=== PATIENT | female | born 1950 | race Caucasian/White ===

== ENCOUNTER 2016-10-29 09:40 | Inpatient (IN) ==
[2016-10-29 10:13] VITALS: BMI 45.7
[2016-10-29] MEDS ORDERED: NON-FORMULARY MEDICATION (Multivitamin [Multi-Vitamin Daily] 1 TAB) PO SCH (10:30)
[2016-10-29] MEDS ORDERED: GLUCOPHAGE XR 500MG PO SCH (10:30)
[2016-10-29] MEDS ORDERED: NON-FORMULARY MEDICATION (Potassium Chloride [K-Tab Er] 1 TAB) PO SCH (10:30)
[2016-10-29] MEDS ORDERED: NON-FORMULARY MEDICATION (Simvastatin [Simvastatin] 20 MG) PO SCH ×22 (10:30)
[2016-10-29] MEDS ORDERED: NON-FORMULARY MEDICATION (Losartan/Hydrochlorothiazide [Losartan-Hctz 100-25 Mg Tab] 1 TAB PO SCH (10:30)
[2016-10-29] MEDS ORDERED: NON-FORMULARY MEDICATION (Verapamil Hcl [Verapamil Er] 240 MG) PO SCH (10:30)
[2016-10-29] MEDS ORDERED: NON-FORMULARY MEDICATION (Lisinopril [Lisinopril] 20 MG) PO SCH ×22 (10:30)
[2016-10-29 10:50] LABS: BASOPHILS % (AUTO) 0.4 % (0.0-3.0); EOSINOPHILS # (AUTO) 0.1 K/ul (0.0-0.7); EOSINOPHILS % (AUTO) 2.4 % (0.0-7.0); HEMOGLOBIN 11.8 g/dl (12.0-16.0); IMMATURE GRANULOCYTE % (AUTO) 0.4 % (0.0-5.0); LYMPHOCYTES # (AUTO) 1.3 K/uL (0.60-3.4); LYMPHOCYTES % (AUTO) 26.5 (10.0-50.0); MEAN CORPUSCULAR HEMOGLOBIN 28.9 pg (27.0-31.0); MEAN CORPUSCULAR HGB CONC 32.8 (31.8-35.4); MEAN CORPUSCULAR VOLUME 88.2 fl (81.0-99.0); MONOCYTES # (AUTO) 0.3 K/uL (0.4-2.0); MONOCYTES % (AUTO) 6.1 (0-10); NEUTROPHILS # (AUTO) 3.1 K/ul (2.0-6.9); NEUTROPHILS % (AUTO) 64.2; PLATELET COUNT 238 10^3/uL (140-440); RED BLOOD COUNT 4.08 10^6/ul (4.20-5.40)
[2016-10-29] MEDS ORDERED: HYZAAR 50-12.5 MG TAB PO SCH (11:00)
[2016-10-29 11:33] LABS: ALBUMIN/GLOBULIN RATIO 1.18; ANION GAP 12.8; BILIRUBIN,TOTAL 0.52 mg/dL (0.00-1.20); BUN/CREATININE RATIO 16.86; CALCIUM 9.7 mg/dL (8.2-10.2); CREATININE 0.83 mg/dL (0.60-1.30); POTASSIUM 3.8 mmol/L (3.5-5.10); TOTAL PROTEIN 7.4 g/dL (5.8-8.1)
[2016-10-29] MEDS: CYANOCOBALAMIN 1000 MCG PO SCH (11:40)
[2016-10-29] MEDS: CLARITIN PO SCH (11:40)
[2016-10-29] MEDS: MULTIVITAMIN PO SCH (11:41)
[2016-10-29] MEDS: ASPIRIN CHEWABLE PO SCH (11:41)
[2016-10-29] MEDS: ZESTRIL PO SCH (11:42)
[2016-10-29] MEDS: CLEOCIN PO SCH ×3 (11:42→20:58)
[2016-10-29] MEDS: GLUCOPHAGE PO SCH (11:43)
[2016-10-29] MEDS: LASIX TAB PO SCH (11:43)
[2016-10-29] MEDS: CALAN SR PO SCH (11:43)
[2016-10-29] MEDS: DECADRON 4 MG/ML SDV IM SCH (11:44)
[2016-10-29] MEDS: ZOCOR PO SCH (11:44)
[2016-10-29] MEDS: MICRO-K CAP PO SCH (11:45)
[2016-10-29] MEDS: ROCEPHIN 1 GM in SODIUM CHLORIDE 50 ML IV SCH (11:45)
[2016-10-29] MEDS: NORCO 7.5-325 PO SCH ×3 (11:52→20:58)
[2016-10-29] MEDS: LASIX IVP SCH (11:56)
--- NOTE | 2016-10-29 12:50 | DI ---
EXAM: Two views of the chest. History: Hypertension. Comparison: Chest radiograph 07/27/2012, chest CT 04/01/2014 Findings: Heart size is upper limits of normal. No focal consolidation. No appreciable pleural fl uid and no pneumothorax. Atherosclerotic vascular calcifications. No acute osseous abnormalities. Impression: No acute cardiopulmonary process.
--- NOTE | 2016-10-29 13:16 | US ---
Exam: Mcpherson-scale and color Doppler ultrasonographic evaluation of the lower extremity venous struct ures. Comparison: 10/04/2014. Reason for exam: Leg edema. FINDINGS: There is spontaneous flow with adequate compression and respiratory augmentation seen in both the right and left common femoral, greater saphenous, profunda, superficial femoral, popliteal, peroneal, posterior tibial, and anterior tibial veins. Impression: No ultrasonographic evidence of deep venous thrombus is seen in either the right or lef t lower extremity.
[2016-10-29] MEDS: HUMULIN R SUBCUT PRN (20:59)
[2016-10-30 05:16] LABS: BASOPHILS % (AUTO) 0.3 % (0.0-3.0); HEMATOCRIT 34.6 % (37.0-47.0); HEMOGLOBIN 11.3 g/dl (12.0-16.0); IMMATURE GRANULOCYTE % (AUTO) 0.5 % (0.0-5.0); LYMPHOCYTES # (AUTO) 1.3 K/uL (0.60-3.4); LYMPHOCYTES % (AUTO) 16.7 (10.0-50.0); MEAN CORPUSCULAR HEMOGLOBIN 28.8 pg (27.0-31.0); MEAN CORPUSCULAR HGB CONC 32.7 (31.8-35.4); MONOCYTES # (AUTO) 0.5 K/uL (0.4-2.0); MONOCYTES % (AUTO) 6.7 (0-10); NEUTROPHILS # (AUTO) 5.8 K/ul (2.0-6.9); NEUTROPHILS % (AUTO) 75.8; PLATELET COUNT 265 10^3/uL (140-440); RED BLOOD COUNT 3.93 10^6/ul (4.20-5.40); WHITE BLOOD COUNT 7.71 K/ul (4.6-10.2)
[2016-10-30 05:30] LABS: ALBUMIN 3.5 g/dL (3.4-5.0); ALBUMIN/GLOBULIN RATIO 1.06; BILIRUBIN,TOTAL 0.29 mg/dL (0.00-1.20); BUN/CREATININE RATIO 25.28; CALCIUM 9.8 mg/dL (8.2-10.2); CREATININE 0.87 mg/dL (0.60-1.30); TOTAL PROTEIN 6.8 g/dL (5.8-8.1)
[2016-10-30] MEDS: LASIX IVP SCH (05:52)
[2016-10-30] MEDS: CLEOCIN PO SCH ×3 (05:52→20:34)
[2016-10-30] MEDS: HUMULIN R SUBCUT PRN ×3 (05:53→20:35)
[2016-10-30] MEDS: LASIX TAB PO SCH (05:53)
[2016-10-30] MEDS: NORCO 7.5-325 PO SCH ×3 (05:53→20:34)
[2016-10-30] MEDS: ASPIRIN CHEWABLE PO SCH (08:43)
[2016-10-30] MEDS: COZAAR PO SCH (08:43)
[2016-10-30] MEDS: GLUCOPHAGE PO SCH (08:44)
[2016-10-30] MEDS: MICRO-K CAP PO SCH (08:44)
[2016-10-30] MEDS: CALAN SR PO SCH (08:44)
[2016-10-30] MEDS: MULTIVITAMIN PO SCH (08:44)
[2016-10-30] MEDS: CLARITIN PO SCH (08:44)
[2016-10-30] MEDS: ZOCOR PO SCH (08:45)
[2016-10-30] MEDS: CYANOCOBALAMIN 1000 MCG PO SCH (08:47)
[2016-10-30] MEDS: DECADRON 4 MG/ML SDV IM SCH (08:47)
[2016-10-30] MEDS: ZESTRIL PO SCH (08:48)
[2016-10-30] MEDS ORDERED: HYDROCHLOROTHIAZIDE PO SCH (09:00)
[2016-10-30] MEDS: ROCEPHIN 1 GM in SODIUM CHLORIDE 50 ML IV SCH (09:17)
--- NOTE | 2016-10-30 13:29 | PCM.PROG ---
Attending Provider: ATTENDING PROVIDER: Dr. MICHAEL OBRIEN DATE OF SERVICE: 10/30/16 SUBJECTIVE: This 66 year old WHITE/ F was hospitalized 10/29/16. The patient is hospitalized with cellulitis left lower extremity. The patient is feeling better. No fever, no chills. No pain. Venous scan is negative. REVIEW OF SYSTEMS: CONSTITUTIONAL: No night sweats. No fatigue, malaise, lethargy. No fever or chills. HEENT: Eyes: No visual changes. No eye pain. No eye discharge. ENT: No runny nose. No epistaxis. No sinus pain. No odynophagia. No congestion. RESPIRATORY: No cough, no congestion. No hemoptysis. No shortness of breath. CARDIOVASCULAR: No angina symptoms. No CHF symptoms. No atypical chest pain for CAD. No palpitations. No orthopnea.. GASTROINTESTINAL: No abdominal pain. No nausea or vomiting. No diarrhea or constipation. No hematemesis. No hematochezia. GENITOURINARY: No urgency. No frequency. No dysuria. No hematuria. No obstructive symptoms. No discharge. No pain. No significant abnormal bleeding. MUSCULOSKELETAL: No musculoskeletal pain; no joint swelling. NEUROLOGICAL: Awake, alert, oriented to time, place and person. No headache. No neck pain. No syncope. No seizures. No dizziness. PSYCHIATRIC: Not anxious. No depression. No suicidal thoughts. No homicidal thoughts. SKIN: No rash. No lesions. Ulcer left lower extremity, dried up and has scabbed over. ENDOCRINE: No unexplained weight loss. No weight gain. HEMATOLOGIC/LYMPHATIC: No anemia. No purpura. No petechiae. No prolonged or excessive bleeding. No palpable lymph nodes. PHYSICAL EXAMINATION: GENERAL: The patient is awake, alert and oriented, sitting in chair in no distress. VITAL SIGNS: Temperature 98.0 F, Pulse 71, Respiratory Rate 20, BP 120/70, Pulse Ox 96% HEENT: Head normocephalic, atraumatic. Eyes: Extraocular muscles are intact. Pupils are equal, round and reactive to light and accommodation. Ears: No lesions. Nose appeared normal. Throat: No exudate or erythema. NECK: Supple. No JVD, no carotid bruit. No lymphadenopathy or thyromegaly. LUNGS: Clear to auscultation. Percussion note normal. Chest symmetrical. HEART: S1, S2, no S3. No murmurs. No cyanosis or clubbing. No ascites. Pulses: Dorsalis pedis and posterior tibial pulses +1 to +2 both sides. ABDOMEN: Soft. Non-tender. Bowel sounds active. No CVA tenderness. No mass felt. EXTREMITIES: Left lower extremity is less swollen. Erythema is more confined now. Localized ulcer has dried up, scabbed over. No drainage. No sign of pus formation. It looks better than expected. NEUROLOGIC: No focal deficit. Cranial nerves II through XII are grossly intact. No headache, no double vision or headache. SKIN: Not dry. Intact. Turgor-normal. LYMPHATIC: No palpable lymph nodes/no lymphedema. MUSCULOSKELETAL: Normal joints with no swelling. Muscle tone is normal. LAB REVIEW: 10/30/16 05:11 10/30/16 05:11 10/30/16 05:11: WBC 7.71, RBC 3.93 L, Hgb 11.3 L, Hct 34.6 L, MCV 88.0, MCH 28.8 , MCHC 32.7, RDW Coeff of Saundra 13.5, Plt Count 265, Immature Gran % (Auto) 0.5, Neut % (Auto) 75.8, Lymph % (Auto) 16.7, Harris % (Auto) 6.7, Eos % (Auto) 0.0, Baso % (Auto) 0.3, Immature Gran # (Auto) 0.0, Neut # 5.8, Lymph # 1.3, Harris # 0.5, Eos # 0.0, Baso # 0.0, Sodium 141, Potassium 4.0, Chloride 102, Carbon Dioxide 26, Anion Gap 17.0, BUN 22 H, Creatinine 0.87, Estimated GFR (MDRD) 66.00, BUN/Creatinine Ratio 25.28, Glucose 171 H D, Calcium 9.8, Total Bilirubin 0.29, AST 12 L, ALT 19, Alkaline Phosphatase 85, Total Protein 6.8, Albumin 3.5, Globulin 3.3, Albumin/Globulin Ratio 1.06 10/29/16 10:40: WBC 4.90, RBC 4.08 L, Hgb 11.8 L, Hct 36.0 L, MCV 88.2, MCH 28.9 , MCHC 32.8, RDW Coeff of Saundra 13.6, Plt Count 238, Immature Gran % (Auto) 0.4, Neut % (Auto) 64.2, Lymph % (Auto) 26.5, Harris % (Auto) 6.1, Eos % (Auto) 2.4, Baso % (Auto) 0.4, Immature Gran # (Auto) 0.0, Neut # 3.1, Lymph # 1.3, Harris # 0.3 L, Eos # 0.1, Baso # 0.0, Sodium 144, Potassium 3.8, Chloride 105, Carbon Dioxide 30, Anion Gap 12.8, BUN 14, Creatinine 0.83, Estimated GFR (MDRD) 69.00 , BUN/Creatinine Ratio 16.86, Glucose 108, Hemoglobin A1c 6.0, Calcium 9.7, Total Bilirubin 0.52, AST 17, ALT 22, Alkaline Phosphatase 95, Total Protein 7.4 , Albumin 4.0, Globulin 3.4, Albumin/Globulin Ratio 1.18, TSH 0.697 ASSESSMENT: 1. Cellulitis resolving with wound culture pending PLAN: 1. Continue Decadron 2. Lasix IV 4. Losartan 100 mg daily 5. K-Tab 10 mEq daily 6. Continue antibiotics Plan and coordination of the patient's care discussed in the presence of Shotblaster and nurse. CONDITION: STABLE SCRIBED BY: Roro ESPINAL scribed while in presence of service performed by Dr. MICHAEL OBRIEN on 10/30/16 ([id number])
[2016-10-31 04:44] LABS: BASOPHILS % (AUTO) 0.4 % (0.0-3.0); EOSINOPHILS # (AUTO) 0.1 K/ul (0.0-0.7); EOSINOPHILS % (AUTO) 0.8 % (0.0-7.0); HEMATOCRIT 37.6 % (37.0-47.0); HEMOGLOBIN 12.2 g/dl (12.0-16.0); IMMATURE GRANULOCYTE % (AUTO) 0.7 % (0.0-5.0); LYMPHOCYTES # (AUTO) 2.3 K/uL (0.60-3.4); LYMPHOCYTES % (AUTO) 30.1 (10.0-50.0); MEAN CORPUSCULAR HEMOGLOBIN 28.4 pg (27.0-31.0); MEAN CORPUSCULAR HGB CONC 32.4 (31.8-35.4); MEAN CORPUSCULAR VOLUME 87.6 fl (81.0-99.0); MONOCYTES # (AUTO) 0.6 K/uL (0.4-2.0); MONOCYTES % (AUTO) 7.5 (0-10); NEUTROPHILS # (AUTO) 4.6 K/ul (2.0-6.9); NEUTROPHILS % (AUTO) 60.5; PLATELET COUNT 278 10^3/uL (140-440); RED BLOOD COUNT 4.29 10^6/ul (4.20-5.40); WHITE BLOOD COUNT 7.64 K/ul (4.6-10.2)
[2016-10-31 05:02] LABS: ALBUMIN 3.7 g/dL (3.4-5.0); ALBUMIN/GLOBULIN RATIO 1.03; BILIRUBIN,TOTAL 0.22 mg/dL (0.00-1.20); CALCIUM 9.7 mg/dL (8.2-10.2); CREATININE 0.84 mg/dL (0.60-1.30); TOTAL PROTEIN 7.3 g/dL (5.8-8.1)
[2016-10-31] MEDS: LASIX IVP SCH (05:35)
[2016-10-31] MEDS: NORCO 7.5-325 PO SCH ×3 (05:35→20:08)
[2016-10-31] MEDS: LASIX TAB PO SCH (05:35)
[2016-10-31] MEDS: CLEOCIN PO SCH ×3 (05:35→20:07)
[2016-10-31] MEDS: CALAN SR PO SCH (08:57)
[2016-10-31] MEDS: ASPIRIN CHEWABLE PO SCH (08:57)
[2016-10-31] MEDS: COZAAR PO SCH (08:57)
[2016-10-31] MEDS: ZESTRIL PO SCH (08:57)
[2016-10-31] MEDS: ROCEPHIN 1 GM in SODIUM CHLORIDE 50 ML IV SCH (08:57)
[2016-10-31] MEDS: ZOCOR PO SCH (08:57)
[2016-10-31] MEDS: GLUCOPHAGE PO SCH (08:57)
[2016-10-31] MEDS: MULTIVITAMIN PO SCH (08:58)
[2016-10-31] MEDS: CLARITIN PO SCH (08:58)
[2016-10-31] MEDS: CYANOCOBALAMIN 1000 MCG PO SCH (08:58)
[2016-10-31] MEDS: MICRO-K CAP PO SCH (08:58)
--- NOTE | 2016-10-31 10:16 | PCM.PROG ---
Attending Provider: ATTENDING PROVIDER: Dr. MICHAEL OBRIEN DATE OF SERVICE: 10/31/16 SUBJECTIVE: This 66 year old WHITE/ F was hospitalized 10/29/16. The patient is seen with Bev, Nurse Practitioner. She is alert, sitting in the recliner with legs dangling. REVIEW OF SYSTEMS: CONSTITUTIONAL: No night sweats. No fatigue, malaise, lethargy. No fever or chills. HEENT: Eyes: No visual changes. No eye pain. No eye discharge. ENT: No runny nose. No epistaxis. No sinus pain. No odynophagia. No congestion. RESPIRATORY: No cough, no congestion. No hemoptysis. No shortness of breath. CARDIOVASCULAR: No angina symptoms. No CHF symptoms. No atypical chest pain for CAD. No palpitations. No orthopnea.. GASTROINTESTINAL: No abdominal pain. No nausea or vomiting. No diarrhea or constipation. No hematemesis. No hematochezia. GENITOURINARY: No urgency. No frequency. No dysuria. No hematuria. No obstructive symptoms. No discharge. No pain. No significant abnormal bleeding. MUSCULOSKELETAL: No musculoskeletal pain; no joint swelling. NEUROLOGICAL: Awake, alert, oriented to time, place and person. No headache. No neck pain. No syncope. No seizures. No dizziness. PSYCHIATRIC: Not anxious. No depression. No suicidal thoughts. No homicidal thoughts. SKIN: No rash. Lesion posterior left lower extremity. Chronic leg edema. ENDOCRINE: No unexplained weight loss. No weight gain. HEMATOLOGIC/LYMPHATIC: No anemia. No purpura. No petechiae. No prolonged or excessive bleeding. No palpable lymph nodes. PHYSICAL EXAMINATION: GENERAL: The patient is awake, alert and oriented, sitting in chair in no distress. VITAL SIGNS: Temperature 97.1 F, Pulse 65, Respiratory Rate 16, BP 110/71, Pulse Ox 98% HEENT: Head normocephalic, atraumatic. Eyes: Extraocular muscles are intact. Pupils are equal, round and reactive to light and accommodation. Ears: No lesions. Nose appeared normal. Throat: No exudate or erythema. NECK: Supple. No JVD, no carotid bruit. No lymphadenopathy or thyromegaly. LUNGS: Diminished sounds bilaterally. Clear to auscultation. Percussion note normal. Chest symmetrical. HEART: S1, S2, no S3. No murmurs. No cyanosis or clubbing. No ascites. Pulses: Dorsalis pedis and posterior tibial pulses +1 to +2 both sides. ABDOMEN: Soft. Non-tender. Bowel sounds active. No CVA tenderness. No mass felt. EXTREMITIES: +1 chronic bilateral lower extremity edema, mild tenderness. Full range of motion of all extremities, equal. NEUROLOGIC: No focal deficit. Cranial nerves II through XII are grossly intact. No headache, no double vision or headache. SKIN: 1" lesion back of left lower extremity with some scabbing. No drainage, localized erythema improving. LYMPHATIC: No palpable lymph nodes/no lymphedema. MUSCULOSKELETAL: Normal joints with no swelling. Muscle tone is normal. LAB REVIEW: 10/31/16 04:30 10/31/16 04:30 10/31/16 04:30: WBC 7.64, RBC 4.29, Hgb 12.2, Hct 37.6, MCV 87.6, MCH 28.4, MCHC 32.4, RDW Coeff of Saundra 13.5, Plt Count 278, Immature Gran % (Auto) 0.7, Neut % (Auto) 60.5, Lymph % (Auto) 30.1, Emmet % (Auto) 7.5, Eos % (Auto) 0.8, Baso % (Auto) 0.4, Immature Gran # (Auto) 0.1, Neut # 4.6, Lymph # 2.3, Emmet # 0.6, Eos # 0.1, Baso # 0.0, Sodium 141, Potassium 4.0, Chloride 102, Carbon Dioxide 26, Anion Gap 17.0, BUN 21 H, Creatinine 0.84, Estimated GFR (MDRD) 68.00, BUN/Creatinine Ratio 25.00, Glucose 128 H, Calcium 9.7, Total Bilirubin 0.22, AST 10 L, ALT 17, Alkaline Phosphatase 84, Total Protein 7.3, Albumin 3.7 , Globulin 3.6, Albumin/Globulin Ratio 1.03 ASSESSMENT: 1. Cellulitis resolving with wound culture staph aureus 2. Chronic leg edema PLAN: 1. Continue Rocephin and Clindamycin 2. Add Bactroban b.i.d. topically. 3. Anticipate discharge tomorrow. 4. Instructed to elevate legs. Plan and coordination of the patient's care discussed in the presence of Dredging Inspector and nurse. CONDITION: Stable SCRIBED BY: NOA [employer]IE [employer] scribed while in presence of service performed by Dr. MICHAEL OBRIEN/BEV SOMMERS APRN on 10/31/16 ([id number])
[2016-10-31] MEDS: BACTROBAN TP SCH ×2 (10:31→20:18)
[2016-11-01 05:32] VITALS: BP 91/50; TEMP 97.6
[2016-11-01 05:44] LABS: BASOPHILS # (AUTO) 0.1 K/uL (0-0.2); EOSINOPHILS # (AUTO) 0.2 K/ul (0.0-0.7); EOSINOPHILS % (AUTO) 2.7 % (0.0-7.0); HEMATOCRIT 38.7 % (37.0-47.0); HEMOGLOBIN 12.6 g/dl (12.0-16.0); IMMATURE GRANULOCYTE % (AUTO) 0.8 % (0.0-5.0); LYMPHOCYTES # (AUTO) 2.4 K/uL (0.60-3.4); LYMPHOCYTES % (AUTO) 39.4 (10.0-50.0); MEAN CORPUSCULAR HEMOGLOBIN 28.9 pg (27.0-31.0); MEAN CORPUSCULAR HGB CONC 32.6 (31.8-35.4); MEAN CORPUSCULAR VOLUME 88.8 fl (81.0-99.0); MONOCYTES # (AUTO) 0.5 K/uL (0.4-2.0); MONOCYTES % (AUTO) 8.5 (0-10); NEUTROPHILS # (AUTO) 2.9 K/ul (2.0-6.9); NEUTROPHILS % (AUTO) 47.6; PLATELET COUNT 273 10^3/uL (140-440); RED BLOOD COUNT 4.36 10^6/ul (4.20-5.40); WHITE BLOOD COUNT 5.99 K/ul (4.6-10.2)
[2016-11-01] MEDS: CLEOCIN PO SCH (05:55)
[2016-11-01] MEDS: NORCO 7.5-325 PO SCH (05:55)
[2016-11-01] MEDS: LASIX IVP SCH (05:55)
[2016-11-01] MEDS: LASIX TAB PO SCH (05:56)
[2016-11-01 06:10] LABS: ALBUMIN 3.6 g/dL (3.4-5.0); ALBUMIN/GLOBULIN RATIO 1.09; ANION GAP 21.2; BILIRUBIN,TOTAL 0.3 mg/dL (0.00-1.20); BUN/CREATININE RATIO 29.62; CALCIUM 9.2 mg/dL (8.2-10.2); CREATININE 0.81 mg/dL (0.60-1.30); POTASSIUM 4.2 mmol/L (3.5-5.10); TOTAL PROTEIN 6.9 g/dL (5.8-8.1)
[2016-11-01] MEDS: ROCEPHIN 1 GM in SODIUM CHLORIDE 50 ML IV SCH (08:14)
[2016-11-01] MEDS: ASPIRIN CHEWABLE PO SCH (08:19)
[2016-11-01] MEDS: COZAAR PO SCH (08:19)
[2016-11-01] MEDS: CALAN SR PO SCH (08:19)
[2016-11-01] MEDS: GLUCOPHAGE PO SCH (08:19)
[2016-11-01] MEDS: CLARITIN PO SCH (08:20)
[2016-11-01] MEDS: ZESTRIL PO SCH (08:20)
[2016-11-01] MEDS: MICRO-K CAP PO SCH (08:20)
[2016-11-01] MEDS: ZOCOR PO SCH (08:21)
[2016-11-01] MEDS: BACTROBAN TP SCH (08:21)
[2016-11-01] MEDS: MULTIVITAMIN PO SCH (08:22)
[2016-11-01] MEDS: CYANOCOBALAMIN 1000 MCG PO SCH (08:24)
--- NOTE | 2016-11-01 10:33 | CM.DICTOOL ---
ADMISSION: 10/29/16 09:40 DISCHARGE: November 01, 2016 DATE OF SERVICE: 11/01/16 FINAL DIAGNOSIS Cellulitis, Left Lower Extremity Possible Insect Bite LLE Chronic Leg Edema Diabetes, type 2 Hypertension LVH Cardiomyopathy Fatty Liver Dyslipidemia Anemia DJD Spine Lumbar Surgery LAST VITALS Temp Pulse Resp BP Pulse Ox 97.6 F 76 18 91/50 L 98 11/01/16 05:31 11/01/16 05:31 11/01/16 05:31 11/01/16 05:31 11/01/16 05:31 ACTIVE HOME MEDICATIONS Acetaminophen/Hydrocodone Bitart (Golden 7.5-325) 1 tab PO Q8H REPLACED BY [facility] Last Admin: 11/01/16 05:55 Dose: 1 tab Aspirin (Aspirin Chewable) 81 mg PO DAILYWM REPLACED BY [facility] Last Admin: 11/01/16 08:19 Dose: Not Given Clindamycin HCl (Cleocin) 300 mg PO Q8HR REPLACED BY [facility] Last Admin: 11/01/16 05:55 Dose: 300 mg (new prescription) Loratadine (Claritin) 10 mg PO DAILY REPLACED BY [facility] Last Admin: 11/01/16 08:20 Dose: Not Given Losartan/HCTZ (Hyzaar) 100-25 mg PO DAILY REPLACED BY [facility] Last Admin: 11/01/16 08:19 Dose: 100 mg Metformin HCl (Glucophage) 500 mg PO DAILYWM REPLACED BY [facility] Last Admin: 11/01/16 08:19 Dose: 500 mg Multivitamins (Multivitamin) 1 cap PO DAILY REPLACED BY [facility] Last Admin: 11/01/16 08:22 Dose: Not Given Non-Formulary Medication (Cyanocobalamin (Vitamin B-12) [Vitamin B12]) 1,000 mcg PO DAILY REPLACED BY [facility] Last Admin: 11/01/16 08:24 Dose: Not Given Potassium Chloride (Micro-K Cap) 10 meq PO DAILY REPLACED BY [facility] Last Admin: 11/01/16 08:20 Dose: 10 meq Simvastatin (Zocor) 20 mg PO DAILY REPLACED BY [facility] Last Admin: 11/01/16 08:21 Dose: 20 mg Verapamil HCl (Calan Sr) 240 mg PO DAILY REPLACED BY [facility] Last Admin: 11/01/16 08:19 Dose: 240 mg ALLERGIES amoxicillin trihydrate [From Augmentin] Adverse Reaction (Mild, Unverified 09/09 14:32) Hives potassium clavulanate [From Augmentin] Adverse Reaction (Mild, Unverified 14:32) Hives rosuvastatin calcium [From Crestor] Adverse Reaction (Mild, Unverified 09/09/16 14:32) Abdominal Pain Sulfa (Sulfonamide Antibiotics) Adverse Reaction (Mild, Unverified 09/09/16 14: 32) Hives NEW PRESCRIPTIONS: Clindamycin 300 mg TID for 7 days Stop these medications: Lasix 20 mg daily Lisinopril 20 mg daily SMOKING: Not Applicable DISEASE SPECIFIC EDUCATION: Cellulitis Elevate Legs Prescription No Work Appointment LAB REVIEW: 11/01/16 05:30 11/01/16 05:30 11/01/16 05:30: WBC 5.99, RBC 4.36, Hgb 12.6, Hct 38.7, MCV 88.8, MCH 28.9, MCHC 32.6, RDW Coeff of Saundra 13.4, Plt Count 273, Immature Gran % (Auto) 0.8, Neut % (Auto) 47.6, Lymph % (Auto) 39.4, Hays % (Auto) 8.5, Eos % (Auto) 2.7, Baso % (Auto) 1.0, Immature Gran # (Auto) 0.1, Neut # 2.9, Lymph # 2.4, Hays # 0.5, Eos # 0.2, Baso # 0.1, Sodium 145, Potassium 4.2, Chloride 101, Carbon Dioxide 27, Anion Gap 21.2, BUN 24 H, Creatinine 0.81, Estimated GFR (MDRD) 71.00, BUN/Creatinine Ratio 29.62, Glucose 102, Calcium 9.2, Total Bilirubin 0.30, AST 12 L, ALT 20, Alkaline Phosphatase 84, Total Protein 6.9, Albumin 3.6 , Globulin 3.3, Albumin/Globulin Ratio 1.09 PLAN: Discharge home Diet: Consistent Carbohydrates with bedtime snack Activity: As tolerated Elevate lower extremities as much as possible at night and during the day Continue to check blood sugars at least 2 times daily An appointment is scheduled on November 05 at [address] Oconnell No work until released by Dr. Oconnell Do not take previously prescribed antibiotic (prescribed in [place]) Mrs. Menjivar is alert and oriented x 3. She is independent with activities of daily living and ambulatory with use of a straight cane. She has a good appetite and is consuming 100% of her meals. Accu-check readings for yesterday ranged from 114-131. The morning accu-check reading today is 110. An oblong scabbed area is noted to the posterior left calf with a small amount of surrounding erythema and firmness. Several small circular rivera areas are noted to the side of the scabbed areas. No pain, itching or drainage noted to the left calf. No red streaks are noted. Eliceo Oconnell MD Bev Zarate APRN
--- NOTE | 2016-11-06 11:37 | PN ---
DATE OF SERVICE: 10/31/16 SUBJECTIVE: The patient is a 66 year old white female hospitalized with cellulitis left lower extremity. The patient's cellulitis practically has resolved with the scan formation on the smaller ulcer she has left posterior aspect of the calf. The calf swelling is practically gone. The patient is again explained about keeping her legs elevated. There is no itching anymore. PHYSICAL EXAMINATION: HEENT: Head normocephalic, atraumatic. Eyes: Extraocular muscles are intact. Pupils are equal, round and reactive to light and accommodation. Ears: No lesions. Nose appeared normal. Throat: No exudate or erythema. NECK: Supple. No JVD, no carotid bruit. No lymphadenopathy or thyromegaly. LUNGS: Clear to auscultation. Percussion note normal. Chest symmetrical. HEART: S1, S2, no S3. No murmurs. No cyanosis or clubbing. No ascites. Pulses: Dorsalis pedis and posterior tibial pulses +1 to +2 both sides. Stable. ABDOMEN: Soft. Nontender. Bowel sounds active. No CVA tenderness. No mass felt. EXTREMITIES: No edema. Full range of motion of all extremities, equal. NEUROLOGIC: No focal deficit. Cranial nerves II through XII are grossly intact. No headache, no double vision or headache. SKIN: Not dry. Intact. Turgor - normal. LYMPHATIC: No palpable lymph nodes/no lymphedema. MUSCULOSKELETAL: Normal joints with no swelling. Muscle tone is normal. LABS: Hgb 12, hct 37, WBC 7,600 normal differential CONDITION: Stable TIME SPENT: More than 30 minutes. Plan and coordination of the patient's care discussed in the presence of nurse. TRICIA
--- NOTE | 2016-11-07 08:33 | HP ---
DATE OF SERVICE: 10/29/16 REASON FOR HOSPITALIZATION/ HISTORY OF PRESENT ILLNESS: Bit on -starting drainage Friday-itches.neal went to [facility] on Friday, 4 days ago and put on Erythromycin twice a day and cream three times a day. Getting bigger/ more tender. No fever. REVIEW OF SYSTEMS: CONSTITUTIONAL: No fever, Fatigue. HEENT: No sinus drainage, no sore throat. RESPIRATORY: No cough, no congestion. CARDIOVASCULAR: No atypical chest pain for coronary artery disease. No angina , CHF symptoms, palpitations or shortness of breath. GASTROINTESTINAL: No melena or abdominal pain. No GERD. GENITOURINARY: No hematuria, no prostatism, no polyuria. TUBE SPLICER: No blackout, no dizziness, no headache, no double vision. GAIT: Cane MUSCULOSKELETAL: Osteoarthritis pain, no joint swelling. ENDOCRINE: No weight loss, no weight gain. SKIN: Not dry, no rash. Open lesion left lower extremity PSYCHIATRIC: Not anxious, no depression, no suicidal thoughts, no homicidal thoughts. SOCIAL HISTORY: Marital Status:. Alcohol Usage: No. Tobacco Usage: No. Family History: father , mother [place], one brother 2 half brothers, one sister and 3 half sisters. MEDICAL/SURGICAL HISTORY: Hypertension Mitral valve prolapse Back problems Diabetes Mellitus type 2 LVH Left bundle branch block Anemia Cardiomyopathy DJD spine Fatty liver Gallbladder Back surgery Appendix Tubal ligation Tonsils Coloscopy 11/10 Dr. Deleon MEDICATIONS: Aspirin 81mg PO daily Lisinopril 20mg PO daily OTC Loratadine 10mg Daily Verapamil ER 240mg daily Simvastatin 20mg PO daily Lorida 7.5-325 three times a day Metformin 500mg PO daily Losartan 100mg PO daily Lasix 20mg PO daily Vitamin B12 2,500 PO daily Lipitor 40mg PO daily Multivitamin PO daily K-Tabs 10mg PO daily Erythromycin twice a day and cream three times a day [facility] ALLERGIES: Crestor Sulfa Augmentin PHYSICAL EXAMINATION: V/S: Pulse 92, blood pressure 156/86, temperature 98 and pulse ox 97%. GENERAL APPEARANCE: Oriented times three. HEENT: Normal. NECK: No JVP, no bruits. RESPIRATORY: Lungs are clear. CARDIOVASCULAR: S1, S2, no S3, no murmurs. No cyanosis, clubbing. No ascites. GI/ABDOMEN: No tenderness. Bowel sounds are active. EXTREMITIES: edema, pulses +1, equal. Left lower extremity to open ulcers, tender surrounding erythema, clear-yellow drainage. TUBE SPLICER: Deep tendon reflexes, sensory, motor and gait all normal. RECTAL: colonoscopy 11/10 Dr. Deleon refused repeat. /PELVIC: Refused. ASSESSMENT: 1. Bite versus open wound due chronic leg edema 2. Cellulitis left lower extremity 3. Chronic edema 4. Left muslim skin lesion and left mole removed by Dr. Silveira 5. Fatty liver 6. Diabetes Mellitus type 2 a1c 6.1 on 08/17 7. Hypertension/ LVH 8. Dyslipidemia 9. Anemia 10.DJD spine 11.Left bundle branch block 12.Hyperglycemia A1c 061 on 08/17 13.Cardiomyopathy 14. Back surgery 2000 Dr. Valdez PLAN: 1. Admit regular 2. Diet 2500 calories ADA 3. Elevate legs 4. Lasix 20mg IV now and QAM 5. Venous scan 6. Culture wound culture and sensitivity 7. Rocephin 1 gram IV now and 24 hours 8. Clindamycin 300mg PO three times a day 9. Continue all home medications 10.Daily CBC and CMP and today 11.TSH, A1c 12.X-ray chest 13.EKG today 14.1/2cc Decadron IM today and tomorrow AM 15.Accu-checks with coverage 16.4 hour Telemetry TIME SPENT: More than 70 minutes. ADDENDUM: RADIOLOGICAL FINDINGS: Venous scan is negative and shows no evidence of deep vein thrombosis on right or left extremity. Chest x-ray is negative and it shows no acute cardio pulmonary processes. LABS: Sodium 144, potassium 3.8, BUN 14, creatinine 0.83, glucose 108, TSH 0.6, Total protein 7.4, Albumin 4.0, Globulin 3.4, A1c 6.0, WBC 4.9, RBC 4.08, hgb 11.8, hct 36, plt count 238. The patient was a direct admit from the office on 10/29/16. TRICIA
--- NOTE | 2016-11-07 08:54 | PN ---
DATE OF SERVICE: 11/01/16 DISCHARGE NOTE SUBJECTIVE: The patient is a 66 year old white female hospitalized with cellulitis left lower extremity. The patient's ulcers are already scabbed over and there is no surrounding edema or erythema. The skin looks practically normal. Her cellulitis is completely resolved with no swelling of the calf muscle on the left side. She doesn't have any fever or chills. REVIEW OF SYSTEMS: CONSTITUTIONAL: No night sweats. No fatigue, malaise, lethargy. No fever or chills. HEENT: Eyes: No visual changes. No eye pain. No eye discharge. ENT: No runny nose. No epistaxis. No sinus pain. No sore throat. No odynophagia. No congestion. RESPIRATORY: No cough, no congestion. No hemoptysis. No shortness of breath. CARDIOVASCULAR: No angina symptoms. No CHF symptoms. No atypical chest pain for CAD. No palpitations. No orthopnea. GASTROINTESTINAL: No abdominal pain. No nausea or vomiting. No diarrhea or constipation. No hematemesis. No hematochezia. GENITOURINARY: No urgency. No frequency. No dysuria. No hematuria. No obstructive symptoms. No discharge. No pain. No significant abnormal bleeding. MUSCULOSKELETAL: No musculoskeletal pain; no joint swelling. NEUROLOGICAL: No headache. No neck pain. No syncope. No seizures. No dizziness. PSYCHIATRIC: Not anxious. No depression. No suicidal thoughts. No homicidal thoughts. SKIN: No rash. No lesions. No wounds. ENDOCRINE: No unexplained weight loss. No weight gain. HEMATOLOGIC/LYMPHATIC: No anemia. No purpura. No petechiae. No prolonged or excessive bleeding. No palpable lymph nodes. PHYSICAL EXAMINATION: GENERAL: The patient is oriented to time,place and person and up and about feels great. HEENT: Head normocephalic, atraumatic. Eyes: Extraocular muscles are intact. Pupils are equal, round and reactive to light and accommodation. Ears: No lesions. Nose appeared normal. Throat: No exudate or erythema. NECK: Supple. No JVD, no carotid bruit. No lymphadenopathy or thyromegaly. LUNGS: Clear to auscultation. Percussion note normal. Chest symmetrical. HEART: S1, S2, no S3. No murmurs. No cyanosis or clubbing. No ascites. Pulses: Dorsalis pedis and posterior tibial pulses +1 to +2 both sides. ABDOMEN: Soft. Nontender. Bowel sounds active. No CVA tenderness. No mass felt. EXTREMITIES: No edema. Full range of motion of all extremities, equal. Left lower extremity practically normal with health scab, small elliptical an inch in length and half an inch in width and drainage NEUROLOGIC: No focal deficit. Cranial nerves II through XII are grossly intact. No headache, no double vision or headache. SKIN: Not dry. Intact. Turgor - normal. LYMPHATIC: No palpable lymph nodes/no lymphedema. MUSCULOSKELETAL: Normal joints with no swelling. Muscle tone is normal. LABS: hgb 12.6, hct 38, WBC 5,900 normal differential, creatinine 0.8, BUN 24, potassium 4.2 PLAN: 1. Going to be discharged on Clindamycin 2. Advised to keep the legs up and rest 3. We will see her on Friday and after that she may be released to go back to work until then she is to rest. CONDITION: Stable. TIME SPENT: More than 30 minutes. Plan and coordination of the patient's care discussed in the presence of nurse. TRICIA
--- NOTE | 2016-11-07 09:18 | DS ---
DATE OF SERVICE: 11/01/16 FINAL DIAGNOSIS: 1. Cellulitis, left lower extremity 2. Possible insect bite Left lower extremity 3. Chronic leg edema 4. Diabetes, type 2 5. Hypertension 6. LVH 7. Cardiomyopathy 8. Fatty Liver 9. 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 DISCHARGE INSTRUCTIONS: Discharge home. Continue to check blood sugars at least 2 times daily. An appointment is scheduled on November [address] Oconnell. No work until released by Dr. Oconnell. Do not take previously prescribed antibiotics(prescribed by [facility]) MEDICATIONS AT DISCHARGE: [place] 7.5-325 PO Q 8 hours Aspirin chewable 81mg PO daily Cleocin 300mg PO Q 8 hours Claritin 10mg PO daily Hyzaar 100-25mg PO daily Glucophage 500mg PO daily Multivitamin 1 capsule PO daily Vitamin B12 1,000mcg PO daily Micro-K capsule 10mew PO daily Zocor 20mg PO daily Calan Sr. 240mg PO daily ALLERGIES: Amoxicillin Potassium clavulanate Rosuvastatin calcium Sulfa NEW PRESCRIPTIONS: Clindamycin 300mg three times a day for 7 days STOP: Lasix 20mg daily Lisinopril 20mg daily DIET INSTRUCTIONS: Consistent carbohydrates with bedtime snack ACTIVITY: As tolerated SMOKING: Not applicable DISEASE SPECIFIC EDUCATION: Cellulitis Elevate legs Prescription No work Appointment. HOSPITAL COURSE: The patient is a 66 year old white female who is diabetic was hospitalized with swelling of the left calf with erythema and an ulcer which was draining. The patient had this happen while she was working. The patient was kept in the hospital and given IV Lasix. The swelling practically went away. The draining ulcer has practically dried up and now with healthy scab and no erythema. The inflammation is practically under control and subsided. The patient was treated with Clindamycin and Rocephin. The patient was discharged on Clindamycin. She is advised to rest. She will be seen back on Friday. CONDITION: Stable. TIME SPENT: More than [address] [facility]
--- NOTE | 2016-11-07 09:19 | PN ---
10/29/16: Level 5 10/30/16: Intermediate 10/31/16: Intermediate 11/01/16: D as in discharge This was all Workman's Comp MTDD
== END 2016-11-01 11:00 | disposition home or self-care (01) | DRG 603 ==
LOC: MEDSURG A 09:40
PROVIDERS: ADMIT Internal Medicine; ATTEND Internal Medicine
DX: L03.116 Cellulitis of left lower limb (principal); R60.0 Localized edema; S80.862A Insect bite (nonvenomous), left lower leg, initial encounter; I42.9 Cardiomyopathy, unspecified; E11.9 Type 2 diabetes mellitus without complications; I10 Essential (primary) hypertension; I51.7 Cardiomegaly; K76.0 Fatty (change of) liver, not elsewhere classified; E78.5 Hyperlipidemia, unspecified; D64.9 Anemia, unspecified; M47.9 Spondylosis, unspecified; W57.XXXA Bitten or stung by nonvenomous insect and other nonvenomous arthropods, initial encounter; Z98.890 Other specified postprocedural states; Z79.84 Long term (current) use of oral hypoglycemic drugs; Z79.899 Other long term (current) drug therapy
CPT/HCPCS: 36415; 80053; 82962; 83036; 84443; 85025; 87070; 87186; 93005; 93010; 99223; 99232; 99239

== ENCOUNTER 2017-04-11 13:41 | Outpatient (CLI) ==
--- NOTE | 2017-04-11 14:42 | DI ---
EXAM: Radiographs, left hip HISTORY: Left hip pain. COMPARISON: None available. TECHNIQUE: Two-view. FINDINGS: Bone mineralization is decreased. No fracture or dislocation identified. Joint space is maintained. No erosive changes are seen. There has been previous lumbosacral fusion. Soft tissues are unremarkable. IMPRESSION: No acute abnormality of the left hip.
== END 2017-04-11 13:42 | disposition home or self-care (01) ==
LOC: RAD 13:41
PROVIDERS: ATTEND Internal Medicine
DX: M25.552 Pain in left hip (principal)

== ENCOUNTER 2017-05-13 16:58 | Outpatient (CLI) | END 2017-05-13 16:59 | disposition home or self-care (01) | LOC: NONPT 16:58 | PROVIDERS: ATTEND Internal Medicine | DX: R05 Cough (principal); R68.89 Other general symptoms and signs; R50.9 Fever, unspecified | CPT/HCPCS: 87502 ==

== ENCOUNTER 2017-08-11 06:23 | Outpatient (CLI) ==
[2017-08-11] MEDS ORDERED: DOBUTAMINE 250 ML IV ONE (07:19)
[2017-08-11] MEDS ORDERED: ATROPINE SULFATE PFS ONE (07:19)
--- NOTE | 2017-08-12 11:34 | ECHO2D ---
Date of Exam: 08/11/17 Ordering Physician: DR. MICHAEL OBRIEN Room #: OP Reason for Echo: DILATED CARDIOMYOPATHY M-Mode Normal Adult Results LV Dimensions Normal Adult Results AoV Opening excursions >1.6 >1.6 LVEDD-base- 3.5-5.8 5.9 Ao root dimensions 2.0-3.7 3.2 LVESD-base- 3.1-4.6 L. Atrium dimensions 1.9-3.8 4.7 Post. Wall thickness 0.8-1.1 1.3 IV septum (thickness) 0.7-1.2 1.3 Post. Wall excursion 0.72-1.3 NORMAL Septal motion NORMAL Systolic motion R. Ventricular cavity 1.5-2.0 NORMAL LVEF 60% 52% Paradoxical septal wall motion NORMAL 2-D : 2-D M Mode Echocardiogram was performed using apical four chamber and left parasternal long and short axis views. Mitral, tricuspid and aortic valves appear to be normal. Contractility of the left ventricle seems to be normal, so is the cavity size. Enlarged Left atrial cavity Aortic root appears to be normal. There is no pericardial effusion. There is no thrombus noted in the left ventricular or left aortic cavity. No mitral valve prolapse noted. M-MODE: MV: NORMAL AV: NORMAL TV: NORMAL PV: CHAMBER SIZE: ENLARGED LEFT ATRIAL CAVITY WALL MOTION: NORMAL PERICARDIUM: NORMAL INTERPRETATION: 1. LEFT VENTRICULAR HYPERTROPHY WITH ENLARGED LEFT ATRIAL CAVITY 2. NORMAL LEFT VENTRICULAR CONTRACTILITY 3. NORMAL LEFT VENTRICLE SIZE 4. NORMAL VALVES MTDD
--- NOTE | 2017-08-12 11:45 | ECHOSTRESS ---
Date of Exam: 08/11/17 Ordering Physician: DR. MICHAEL OBRIEN Reason for Echo: DILATED CARDIOMYOPATHY, DOBUTAMINE STRESS--NO ISCHEMIA M-Mode Normal Adult Results LV Dimensions Normal Adult Results AoV Opening excursions >1.6 LVEDD-base- 3.5-5.8 Ao root dimensions 2.0-3.7 LVESD-base- 3.1-4.6 L. Atrium dimensions 1.9-3.8 Post. Wall thickness 0.8-1.1 IV septum (thickness) 0.7-1.2 Post. Wall excursion 0.72-1.3 Septal motion Systolic motion R. Ventricular cavity 1.5-2.0 LVEF 60% Paradoxical septal wall motion 2-D: NORMAL LEFT VENTRICULAR CONTRACTILITY--AND WITH DOBUTAMINE INFUSION M-MODE: MV: AV: TV: PV: CHAMBER SIZE: WALL MOTION: NORMAL LEFT VENTRICULAR CONTRACTILITY--AND WITH DOBUTAMINE INFUSION PERICARDIUM: INTERPRETATION: 1. NORMAL LEFT VENTRICULAR CONTRACTILITY--AND WITH DOBUTAMINE INFUSION MTDD
--- NOTE | 2017-08-12 12:04 | DOBSTECHO ---
Date of Test: 08/11/17 Ordering Physician: DR. MICHAEL OBRIEN Reason for Examination: DILATED CARDIOMYOPATHY, SURGICAL CLEARANCE Current Medications: VERAPAMIL, FUROSEMIDE, METFORMIN, LISINOPRIL, ATORVASTATIN , POTASSIUM, LOSARTAN, ASA, LORATADINE, NORCO Target Heart Rate: 132/156 Height: 65" Weight: 265 LBS S-T Segment Stage Time HR BPM BP MMHG Rhythm +/- Elevation Depression Comments/ Symptoms Control Sitting 74 130/72 SR X NONE Dobutamine 250mg/D5W 5cmg/KG/mn 10cmg/KG/mn 3:00 86 140/72 SR X NONE 15cmg/KG/mn 2:00 116 SR X NONE 20cmg/KG/mn 2:00 116 132/60 SR X NONE 25cmg/KG/mn 2:00 122 SR X NONE 30cmg/KG/mn 1:47 127 130/68 SR X NONE 35cmg/KG/mn 40cmg/KG/mn Time: 5:00 HR B/P Time: 12:00 HR B/P Time: HR B/P Recovery 106 120/60 Recovery 90 Recovery Total Time: 10:47 Maximum Heart Rate Reached: 127 BPM Interpretation: 97% OXYGEN SATURATION ON ROOM AIR AT REST 1. NO EVIDENCE OF ISCHEMIA BY ST-T WAVE 2. NO CHEST PAIN OR CHEST DISCOMFORT 3. NORMAL LEFT VENTRICULAR CONTRACTILITY-RESTING AND WITH DOBUTAMINE INFUSION MTDD
== END 2017-08-11 06:24 | disposition home or self-care (01) ==
LOC: CAR 06:23
PROVIDERS: ATTEND Internal Medicine
DX: I42.0 Dilated cardiomyopathy (principal); R06.02 Shortness of breath
CPT/HCPCS: 93005; 93010

== ENCOUNTER 2017-12-01 13:11 | Outpatient (CLI) | END 2017-12-01 13:12 | disposition home or self-care (01) | LOC: RAD 13:11 | PROVIDERS: ATTEND Internal Medicine | DX: Z12.31 Encounter for screening mammogram for malignant neoplasm of breast (principal) | CPT/HCPCS: 77067 ==

== ENCOUNTER 2019-01-11 16:23 | Inpatient (IN) ==
[2019-01-11] MEDS ORDERED: ATROPINE SULFATE PFS IVP PRN (17:01)
[2019-01-11] MEDS ORDERED: VISTARIL INJ IM PRN (17:01)
[2019-01-11] MEDS ORDERED: TYLENOL PO PRN (17:01)
[2019-01-11] MEDS ORDERED: NITROSTAT SL PRN (17:01)
[2019-01-11 17:02] VITALS: BMI 43.7
[2019-01-11] MEDS: ALDACTONE PO SCH (18:21)
[2019-01-11] MEDS: CLEOCIN PO SCH ×2 (18:21→20:18)
[2019-01-11] MEDS: COZAAR PO SCH (18:21)
[2019-01-11] MEDS: ROCEPHIN 1 GM/50 ML D5W 1 GM/50 ML BAG IV SCH (18:23)
[2019-01-11] MEDS: LASIX IVP SCH (18:23)
[2019-01-11] MEDS: NORCO 7.5-325 PO SCH (20:53)
[2019-01-11] MEDS ORDERED: NORCO 7.5-325 PO SCH (21:00)
--- NOTE | 2019-01-11 21:54 | DI ---
EXAM: AP single view of the chest. HISTORY: Routine telemetry orders. FINDINGS: The bones are unremarkable. The cardiac silhouette is enlarged. The pulmonary vasculature is within normal limits. The costophrenic angles are clear. There is minimal left basilar subsegme ntal atelectasis. Impression: Minimal left basilar subsegmental atelectasis. Cardiomegaly.
[2019-01-12] MEDS: LASIX IVP SCH (05:37)
--- NOTE | 2019-01-12 08:49 | PCM.PROG ---
Attending Provider: ATTENDING PROVIDER: Dr. MICHAEL OBRIEN This patient is seen with Bev Zarate, Nurse Practitioner. DATE OF SERVICE: 01/12/19 SUBJECTIVE: This 68 year old /WHITE F was hospitalized 01/11/19. The patient is resting comfortably. Her leg edema has slightly improved with significant redness. REVIEW OF SYSTEMS: CONSTITUTIONAL: No night sweats. No fatigue, malaise, lethargy. No fever or chills. HEENT: Eyes: No visual changes. No eye pain. No eye discharge. ENT: No runny nose. No epistaxis. No sinus pain. No odynophagia. No congestion. RESPIRATORY: No cough, no congestion. No hemoptysis. No shortness of breath. CARDIOVASCULAR: No angina symptoms. No CHF symptoms. No atypical chest pain for CAD. No palpitations. No orthopnea.. GASTROINTESTINAL: No abdominal pain. No nausea or vomiting. No diarrhea or constipation. No hematemesis. No hematochezia. GENITOURINARY: No urgency. No frequency. No dysuria. No hematuria. No obstructive symptoms. No discharge. No pain. No significant abnormal bleeding. MUSCULOSKELETAL: No musculoskeletal pain; no joint swelling. Pain. NEUROLOGICAL: Awake, alert, oriented to time, place and person. No headache. No neck pain. No syncope. No seizures. No dizziness. PSYCHIATRIC: Not anxious. No depression. No suicidal thoughts. No homicidal thoughts. SKIN: No rash. No lesions. No wounds. Leg edema. ENDOCRINE: No unexplained weight loss. No weight gain. HEMATOLOGIC/LYMPHATIC: No anemia. No purpura. No petechiae. No prolonged or excessive bleeding. No palpable lymph nodes. PHYSICAL EXAMINATION: GENERAL: The patient is awake, alert and oriented, lying in bed in no distress. VITAL SIGNS: Temperature 97.8 F, Pulse 72, Respiratory Rate 20, BP 124/73, Pulse Ox 97% HEENT: Head normocephalic, atraumatic. Eyes: Extraocular muscles are intact. Pupils are equal, round and reactive to light and accommodation. Ears: No lesions. Nose appeared normal. Throat: No exudate or erythema. NECK: Supple. No JVD, no carotid bruit. No lymphadenopathy or thyromegaly. LUNGS: Diminished breath sounds. Clear to auscultation. Percussion note normal. Chest symmetrical. HEART: S1, S2, no S3. No murmurs. No cyanosis or clubbing. No ascites. Pulses: Dorsalis pedis and posterior tibial pulses +1 to +2 both sides. ABDOMEN: Soft. Non-tender. Bowel sounds active. No CVA tenderness. No mass felt. EXTREMITIES: +1 bilateral leg edema with multiple scabbed areas with surrounding erythema and one pustular lesion. Full range of motion of all extremities, equal. NEUROLOGIC: No focal deficit. Cranial nerves II through XII are grossly intact. No headache, no double vision or headache. SKIN: Not dry. Intact. Turgor-normal. LYMPHATIC: No palpable lymph nodes/no lymphedema. MUSCULOSKELETAL: Normal joints with no swelling. Muscle tone is normal. LAB REVIEW: 01/12/19 04:42 01/12/19 01:10 01/12/19 04:42: WBC 5.37, RBC 3.89 L, Hgb 11.2 L, Hct 35.3 L, MCV 90.7, MCH 28.8, MCHC 31.7 L, RDW Coeff of [place]und[place] 13.4, Plt Count 236, Immature Gran % (Auto) 0.4, Neut % (Auto) 54.0, Lymph % (Auto) 33.1, [place] % (Auto) 7.8, Eos % (Auto) 4.1, Baso % (Auto) 0.6, Immature Gran # (Auto) 0.0, Neut # (Auto) 2.9, Lymph # (Auto) 1.8, [place] # (Auto) 0.4, Eos # (Auto) 0.2, Baso # (Auto) 0.0 01/12/19 01:10: Sodium 140.8, Potassium 4.08, Chloride 103.4, Carbon Dioxide 30.6 H, Anion Gap 10.88, BUN 17.5 H, Creatinine 0.91, Estimated GFR (MDRD) 62.00, BUN/Creatinine Ratio 19.23, Glucose 139.2 H, Calcium 8.86, Total Bilirubin 0.31, AST 23.8, ALT 25.7, Alkaline Phosphatase 75.6, Total Creatine K inase 38.6, Troponin I < 0.012, Total Protein 7.07, Albumin 3.97, Globulin 3.10, Albumin/Globulin Ratio 1.28 01/11/19 17:44: Urine Color Yellow, Urine Clarity Clear, Urine pH 6.5, Ur Specific [place] 1.020, Urine Protein Negative, Urine Glucose (UA) Negative, Urine Ketones Negative, Urine Blood Negative, Urine Nitrite Negative, Urine Bilirubin Negative, Urine Urobilinogen 0.2, Ur Leukocyte Esterase Trace, Urine Microscopic RBC 2-5, Urine Microscopic WBC 2-5, Ur Squamous Epith Cells 0-2, Urine Bacteria 1+ 01/11/19 17:21: TSH 1.050 01/11/19 17:20: Total Creatine Kinase 46.8, Troponin I < 0.012 01/11/19 17:20: Sodium 140.7, Potassium 4.12, Chloride 102.8, Carbon Dioxide 29.9, Anion Gap 12.12, BUN 17.2 H, Creatinine 0.85, Estimated GFR (MDRD) 67.00, BUN/Creatinine Ratio 20.23, Glucose 123.7 H, Calcium 9.17, Total Bilirubin 0.38, AST 39.7 H, ALT 29.1, Alkaline Phosphatase 88.4, Total Protein 7.82, Albumin 4.33, Globulin 3.49, Albumin/Globulin Ratio 1.24 01/11/19 17:20: WBC 6.04, RBC 4.08 L, Hgb 11.8 L, Hct 36.9 L, MCV 90.4, MCH 28.9, MCHC 32.0, RDW Coeff of [place]und[place] 13.4, Plt Count 253, Immature Gran % (Auto) 0.3, Neut % (Auto) 57.2, Lymph % (Auto) 32.9, [place] % (Auto) 6.1, Eos % (Auto) 3.0, Baso % (Auto) 0.5, Immature Gran # (Auto) 0.0, Neut # (Auto) 3.5, Lymph # (Auto) 2.0, [place] # (Auto) 0.4, Eos # (Auto) 0.2, Baso # (Auto) 0.0 ASSESSMENT: Please see below. 1. Bilateral lower extremity cellulitis and edema. 2. Hypertension 3. Chronic back pain. PLAN: 1. 40mg Lasix IV 2. Continue antibiotics 3. Elevate legs 3. Bactroban BID to scabbed areas. Plan and coordination of the patient's care discussed in the presence of Rn Telephone Triage and nurse. SCRIBED BY: YOEL PATEL, Tool Marker scribed while in presence of service performed by Dr. Obrien/Bev Zarate APRN on 01/12/19 (0801)
[2019-01-12] MEDS ORDERED: HYZAAR 50-12.5 MG TAB PO SCH (09:00)
[2019-01-12] MEDS ORDERED: CALAN SR PO SCH (09:00)
[2019-01-12] MEDS ORDERED: COZAAR PO SCH ×2 (09:00→10:00)
[2019-01-12] MEDS ORDERED: LASIX IVP STA (09:06)
[2019-01-12] MEDS: MICRO-K CAP PO SCH (09:13)
[2019-01-12] MEDS: COZAAR PO SCH (09:13)
[2019-01-12] MEDS: NORCO 7.5-325 PO SCH ×3 (09:13→20:48)
[2019-01-12] MEDS: CLEOCIN PO SCH ×3 (09:14→20:48)
[2019-01-12] MEDS: ASPIRIN EC PO SCH (09:14)
[2019-01-12] MEDS: ZOCOR PO SCH (09:14)
[2019-01-12] MEDS: ALDACTONE PO SCH (09:14)
[2019-01-12] MEDS: CLARITIN PO SCH (09:14)
[2019-01-12] MEDS: GLUCOPHAGE PO SCH (09:14)
[2019-01-12] MEDS: ROCEPHIN 1 GM/50 ML D5W 1 GM/50 ML BAG IV SCH (09:15)
[2019-01-12] MEDS: BACTROBAN TP SCH ×2 (09:46→20:50)
[2019-01-12] MEDS: CALAN SR PO SCH (09:46)
[2019-01-13] MEDS ORDERED: LASIX IVP STA (08:37)
--- NOTE | 2019-01-13 08:57 | PCM.PROG ---
Attending Provider: ATTENDING PROVIDER: Dr. MICHAEL OBRIEN This patient is seen with Bev Zarate, Nurse Practitioner. DATE OF SERVICE: 01/13/19 SUBJECTIVE: This 68 year old /WHITE F was hospitalized 01/11/19. Leg edema has slightly improved, still some drainage of open areas. REVIEW OF SYSTEMS: CONSTITUTIONAL: No night sweats. No fatigue, malaise, lethargy. No fever or chills. HEENT: Eyes: No visual changes. No eye pain. No eye discharge. ENT: No runny nose. No epistaxis. No sinus pain. No odynophagia. No congestion. RESPIRATORY: No cough, no congestion. No hemoptysis. No shortness of breath. CARDIOVASCULAR: No angina symptoms. No CHF symptoms. No atypical chest pain for CAD. No palpitations. No orthopnea.. GASTROINTESTINAL: No abdominal pain. No nausea or vomiting. No diarrhea or constipation. No hematemesis. No hematochezia. GENITOURINARY: No urgency. No frequency. No dysuria. No hematuria. No obstructive symptoms. No discharge. No pain. No significant abnormal bleeding. MUSCULOSKELETAL: No musculoskeletal pain; no joint swelling. Leg edema. NEUROLOGICAL: Awake, alert, oriented to time, place and person. No headache. No neck pain. No syncope. No seizures. No dizziness. PSYCHIATRIC: Not anxious. No depression. No suicidal thoughts. No homicidal th oughts. SKIN: No rash. No lesions. No wounds. ENDOCRINE: No unexplained weight loss. No weight gain. HEMATOLOGIC/LYMPHATIC: No anemia. No purpura. No petechiae. No prolonged or excessive bleeding. No palpable lymph nodes. PHYSICAL EXAMINATION: GENERAL: The patient is awake, alert and oriented, lying in bed in no distress. VITAL SIGNS: Temperature 97.7 F, Pulse 81, Respiratory Rate 18, BP 106/66, Pulse Ox 96% HEENT: Head normocephalic, atraumatic. Eyes: Extraocular muscles are intact. Pupils are equal, round and reactive to light and accommodation. Ears: No l esions. Nose appeared normal. Throat: No exudate or erythema. NECK: Supple. No JVD, no carotid bruit. No lymphadenopathy or thyromegaly. LUNGS: Diminished breath sounds. Clear to auscultation. Percussion note normal. Chest symmetrical. HEART: S1, S2, no S3. No murmurs. No cyanosis or clubbing. No ascites. Pulses: Dorsalis pedis and posterior tibial pulses +1 to +2 both sides. ABDOMEN: Soft. Non-tender. Bowel sounds active. No CVA tenderness. No mass felt. EXTREMITIES: Slightly improved bilateral leg edema. Open areas with some scant bloody drainage. Slightly improved redness. Full range of motion of all extremities, equal. NEUROLOGIC: No focal deficit. Cranial nerves II through XII are grossly intact. No headache, no double vision or headache. SKIN: Not dry. Intact. Turgor-normal. LYMPHATIC: No palpable lymph nodes/no lymphedema. MUSCULOSKELETAL: Normal joints with no swelling. Muscle tone is normal. LAB REVIEW: 01/13/19 04:07 01/13/19 04:07 01/13/19 04:07: Sodium 138.2, Potassium 4.43, Chloride 100.1, Carbon Dioxide 31.5 H, Anion Gap 11.03, BUN 17.6 H, Creatinine 0.83, Estimated GFR (MDRD) 69.00, BUN/Creatinine Ratio 21.20, Glucose 132.1 H, Calcium 9.04, Total Bilirubin 0.43, AST 27.6, ALT 26.9, Alkaline Phosphatase 88.8, Total Protein 7.55, Albumin 4.13, Globulin 3.42, Albumin/Globulin Ratio 1.20 01/13/19 04:07: WBC 5.79, RBC 4.07 L, Hgb 11.6 L, Hct 36.6 L, MCV 89.9, MCH 28.5, MCHC 31.7 L, RDW Coeff of [place]und[place] 13.2, Plt Count 254, Immature Gran % (Auto) 0.5, Neut % (Auto) 50.8, Lymph % (Auto) 35.8, [place] % (Auto) 7.6, Eos % (Auto) 4.8, Baso % (Auto) 0.5, Immature Gran # (Auto) 0.0, Neut # (Auto) 2.9, Lymph # (Auto) 2.1, [place] # (Auto) 0.4, Eos # (Auto) 0.3, Baso # (Auto) 0.0 01/11/19 17:21: Thyroxine (T4) 8.0 ASSESSMENT: Please see below. 1. Bilateral lower extremity cellulitis and edema. 2. Hypertension 3. Chronic back pain. PLAN: 1. Continue IV antibiotics 2. Addition Lasix 40mg times one today 3. Keep legs elevated Plan and coordination of the patient's care discussed in the presence of [employer] and nurse. SCRIBED BY: Roro MONTERO scribed while in presence of service performed by Dr. Obrien/Bev Zarate APRN on 01/13/19 ([id number])
[2019-01-13] MEDS ORDERED: COZAAR PO ONE (09:00)
[2019-01-13] MEDS: CALAN SR PO SCH (09:06)
[2019-01-13] MEDS: ZOCOR PO SCH (09:06)
[2019-01-13] MEDS: CLEOCIN PO SCH ×3 (09:06→20:45)
[2019-01-13] MEDS: ALDACTONE PO SCH (09:06)
[2019-01-13] MEDS: GLUCOPHAGE PO SCH (09:07)
[2019-01-13] MEDS: CLARITIN PO SCH (09:07)
[2019-01-13] MEDS: MICRO-K CAP PO SCH (09:07)
[2019-01-13] MEDS: ASPIRIN EC PO SCH (09:07)
[2019-01-13] MEDS: NORCO 7.5-325 PO SCH ×3 (09:07→20:46)
[2019-01-13] MEDS: ROCEPHIN 1 GM/50 ML D5W 1 GM/50 ML BAG IV SCH (09:08)
[2019-01-13] MEDS: BACTROBAN TP SCH ×2 (11:30→20:45)
[2019-01-14 05:14] VITALS: BP 109/59; TEMP 97.7
[2019-01-14] MEDS ORDERED: COZAAR PO SCH (09:00)
[2019-01-14] MEDS: CALAN SR PO SCH (09:30)
[2019-01-14] MEDS: ALDACTONE PO SCH (09:30)
[2019-01-14] MEDS: CLEOCIN PO SCH (09:30)
[2019-01-14] MEDS: ZOCOR PO SCH (09:30)
[2019-01-14] MEDS: GLUCOPHAGE PO SCH (09:31)
[2019-01-14] MEDS: ASPIRIN EC PO SCH (09:31)
[2019-01-14] MEDS: NORCO 7.5-325 PO SCH (09:31)
[2019-01-14] MEDS: CLARITIN PO SCH (09:31)
[2019-01-14] MEDS: MICRO-K CAP PO SCH (09:31)
[2019-01-14] MEDS: ROCEPHIN 1 GM/50 ML D5W 1 GM/50 ML BAG IV SCH (09:33)
[2019-01-14] MEDS: BACTROBAN TP SCH (09:34)
[2019-01-14] MEDS ORDERED: LASIX TAB PO SCH (11:00)
--- NOTE | 2019-01-14 12:11 | CM.DICTOOL ---
ADMISSION: 01/11/19 16:23 DISCHARGE: JANUARY 14, 2019 DATE OF SERVICE: 01/14/19 FINAL DIAGNOSIS CELLULITIS, LOWER EXTREMITIES LEG EDEMA, CHRONIC DIABETES, TYPE 2 (A1C 6.4 07/2018) HYPERTENSION MILD RESTRICTIVE LUNG DISEASE (PFT 08/2017) DYSLIPIDEMIA DJD SPINE NEUROPATHY ENDOMETRIAL/UTERINE CANCER MORBID OBESITY LAST ECHO: AUGUST 2017 LVH WITH ENLARGED LEFT ATRIAL CAVITY LVEF 52% CHOLECYSTECTOMY APPENDECTOMY HYSTERECTOMY LUMBAR SURGERY, FUSION L4-S1 LAST VITALS Temp Pulse Resp BP Pulse Ox 97.7 F 75 18 109/59 L 97 01/14/19 05:10 01/14/19 05:10 01/14/19 05:10 01/14/19 05:10 01/14/19 05:10 TAKE THESE MEDICATIONS AT HOME Hydrocodone Bitart/Acetaminophen ([place] 7.5-325) 1 tab PO TID [facility] Last Admin: 01/14/19 09:31 Dose: 1 tab Documented by: Aspirin (Aspirin Ec) 81 mg PO DAILYWM [facility] Last Admin: 01/14/19 09:31 Dose: 81 mg Documented by: Clindamycin HCl (Cleocin) 300 mg PO TID [facility] Stop: 01/14/19 17:29 Last Admin: 01/14/19 09:30 Dose: 300 mg Documented by: Furosemide (Lasix Tab) 20 mg PO QDAC [facility] Last Admin: 01/14/19 10:42 Dose: 20 mg Documented by: Loratadine (Claritin) 10 mg PO DAILY [facility] Last Admin: 01/14/19 09:31 Dose: 10 mg Documented by: Losartan Potassium (Cozaar) 50 mg PO DAILY [facility] Last Admin: 01/14/19 09:44 Dose: 50 mg Documented by: Metformin HCl (Glucophage) 500 mg PO DAILY [facility] Last Admin: 01/14/19 09:31 Dose: 500 mg Documented by: Mupirocin (Bactroban) 1 applic TP BID [facility] Stop: 01/15/19 09:29 Last Admin: 01/14/19 09:34 Dose: 1 applic Documented by: Potassium Chloride (Micro-K Cap) 10 meq PO DAILY [facility] Last Admin: 01/14/19 09:31 Dose: 10 meq Documented by: Simvastatin (Zocor) 20 mg PO DAILY [facility] Last Admin: 01/14/19 09:30 Dose: 20 mg Documented by: Spironolactone (Aldactone) 25 mg PO DAILY [facility] Last Admin: 01/14/19 09:30 Dose: 25 mg Documented by: Verapamil HCl (Calan Sr) 240 mg PO DAILY [facility] Last Admin: 01/14/19 09:30 Dose: 240 mg Documented by: ALLERGIES amoxicillin trihydrate [From Augmentin] Adverse Reaction (Mild, Verified 01/13/19 10:35) Hives potassium clavulanate [From Augmentin] Adverse Reaction (Mild, Verified 01/13/19 10:35) Hives rosuvastatin calcium [From Crestor] Adverse Reaction (Mild, Verified 01/13/19 10:35) Abdominal Pain Sulfa (Sulfonamide Antibiotics) Adverse Reaction (Mild, Verified 01/13/19 10:35) Hives DISCONTINUED MEDICATIONS LOSARTAN 100 MG DAILY NEW PRESCRIPTIONS: LOSARTAN 50 MG DAILY (NO RX GIVEN) CLEOCIN 300 MG TID FOR 5 DAYS LASIX 20 MG DAILY ALDACTONE 25 MG DAILY SMOKING: NON SMOKER DISEASE SPECIFIC EDUCATION: LOW SALT DIET CELLULITIS LEG EDEMA, ELEVATING LEGS ABOVE THE LEVEL OF THE HIPS PRESCRIPTIONS APPOINTMENT LAB REVIEW: 01/14/19 04:40 01/14/19 04:40 01/14/19 04:40: Sodium 137.5, Potassium 4.47, Chloride 100.3, Carbon Dioxide 28.5, Anion Gap 13.17, BUN 17.6 H, Creatinine 0.72, Estimated GFR (MDRD) 81.00, BUN/Creatinine Ratio 24.44, Glucose 156.2 H, Calcium 8.88, Total Bilirubin 0.34, AST 26.0, ALT 27.9, Alkaline Phosphatase 82.0, Total Protein 7.63, Albumin 4.23, Globulin 3.40, Albumin/Globulin Ratio 1.24 01/14/19 04:40: WBC 5.39, RBC 4.31, Hgb 12.2, Hct 38.2, MCV 88.6, MCH 28.3, MCHC 31.9, RDW Coeff of Saundra 13.0, Plt Count 269, Immature Gran % (Auto) 0.4, Neut % (Auto) 55.8, Lymph % (Auto) 31.0, [place] % (Auto) 7.8, Eos % (Auto) 4.3, Baso % (Auto) 0.7, Immature Gran # (Auto) 0.0, Neut # (Auto) 3.0, Lymph # (Auto) 1.7, [place] # (Auto) 0.4, Eos # (Auto) 0.2, Baso # (Auto) 0.0 PLAN: DISCHARGE HOME WITH SPOUSE DIET: CONSISTENT CARBOHYDRATES, DECREASE SALT ACTIVITY: RESUME TOLERATED ELEVATE LEGS ABOVE THE LEVEL OF THE HIPS AT NIGHT AND MUCH POSSIBLE MAY RETURN TO WORK ON January CLEAN LEGS WITH MILD SOAP AND WATER AT LEAST TWICE A DAY; THEN APPLY BACTROBAN OINTMENT TO ALL SCABBED AREAS AN APPOINTMENT IS SCHEDULED WITH DR. OBRIEN/LISA SOMMERS APRN ON January AT 10 AM CODE STATUS: FULL CODE MRS. BAUMANN IS ALERT AND ORIENTED X 3. SHE IS INDEPENDENT WITH ACTIVITIES OF DAILY LIVING. SHE IS AMBULATORY WITH USE OF A STRAIGHT CANE DUE TO CHRONIC BACK PAIN. MRS. BAUMANN LIVES AT HOME WITH HER SPOUSE AND TWO SMALL CHILDREN. 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 MEAL INTAKES ARE GOOD AT 100%. SHE IS CONTINENT OF BOWEL AND BLADDER. LOWER EXTREMITY ERYTHEMA AND SWELLING HAS DECREASED FROM ADMISSION. THICK SCABBED AREAS ARE NOTED TO BOTH LOWER EXTREMITIES; THREE TO THE RIGHT LEG AND SIX TO THE LEFT LEG. THE SKIN AROUND THE SCABBED AREAS IS PINK IN COLOR. SLIGHT BLOODY DRAINAGE IS NOTED AT TIMES DUE TO CONTACT WITH BED LINENS. NO PURULENT DRAINAGE OR ODOR NOTED. MD LISA DE SANTIAGO APRN
[2019-01-15] MEDS ORDERED: GLUCOPHAGE PO SCH (08:00)
--- NOTE | 2019-01-15 12:17 | ECHO2D ---
Date of Exam: 01/14/19 Ordering Physician: DR. MICHAEL OBRIEN Room #: [id number] Reason for Echo: LEG EDEMA M-Mode Normal Adult Results LV Dimensions Normal Adult Results AoV Opening excursions >1.6 >1.6 LVEDD-base- 3.5-5.8 4.7 Ao root dimensions 2.0-3.7 3.0 LVESD-base- 3.1-4.6 L. Atrium dimensions 1.9-3.8 4.8 Post. Wall thickness 0.8-1.1 1.2 IV septum (thickness) 0.7-1.2 1.3 Post. Wall excursion 0.72-1.3 NORMAL Septal motion NORMAL Systolic motion R. Ventricular cavity 1.5-2.0 NORMAL LVEF 60% 54% Paradoxical septal wall motion NORMAL 2-D : 2-D M Mode Echocardiogram was performed using apical four chamber and left parasternal long and short axis views. Mitral, tricuspid and aortic valves appear to be normal. Contractility of the left ventricle seems to be normal, so is the cavity size. ENLARGED LEFT ATRIAL CAVITY. Aortic root appears to be normal. There is no pericardial effusion. There is no thrombus noted in the left ventricle or left atrial cavity. No mitral valve prolapse noted. M-MODE: MV: NORMAL AV: NORMAL TV: NORMAL PV: CHAMBER SIZE: ENLARGED LEFT ATRIAL CAVITY WALL MOTION: NORMAL PERICARDIUM: NORMAL INTERPRETATION: 1. LEFT VENTRICULAR HYPERTROPHY WITH ENLARGED LEFT ATRIAL CAVITY (4.8 CM) 2. NORMAL LEFT VENTRICULAR CONTRACTILITY 3. NORMAL VALVES MTDD
--- NOTE | 2019-01-20 09:30 | PN ---
DATE OF SERVICE: 01/14/19 DISCHARGE NOTE SUBJECTIVE: 68 year old female who is morbidly obese was hospitalized with cellulitis and her leg edema +3 pitting. The patient's leg edema is trace to +1. The ulcers are more or less with healthy scab. No evidence of active infection. The patient is going to be discharged on antibiotics to be taken for 5 days. She is to rest for 5 days before she will be released to go back to work. Her Cardiovascular status is stable. She is going to have an echocardiogram before discharge. REVIEW OF SYSTEMS: CONSTITUTIONAL: No night sweats. No fatigue, malaise, lethargy. No fever or chills. HEENT: Eyes: No visual changes. No eye pain. No eye discharge. ENT: No runny nose. No epistaxis. No sinus pain. No sore throat. No odynophagia. No congestion. RESPIRATORY: No cough, no congestion. No hemoptysis. No shortness of breath. CARDIOVASCULAR: No angina symptoms. No CHF symptoms. No atypical chest pain for CAD. No palpitations. No PND. No orthopnea. GASTROINTESTINAL: No abdominal pain. No nausea or vomiting. No diarrhea or constipation. No hematemesis. No hematochezia. GENITOURINARY: No urgency. No frequency. No dysuria. No hematuria. No obstructive symptoms. No discharge. No pain. No significant abnormal bleeding. MUSCULOSKELETAL: No musculoskeletal pain; no joint swelling. NEUROLOGICAL: No headache. No neck pain. No syncope. No seizures. No dizziness. PSYCHIATRIC: Not anxious. No depression. No suicidal thoughts. No homicidal thoughts. SKIN: No rash. No lesions. No wounds. ENDOCRINE: No unexplained weight loss. No weight gain. HEMATOLOGIC/LYMPHATIC: No anemia. No purpura. No petechiae. No prolonged or excessive bleeding. No palpable lymph nodes. PHYSICAL EXAMINATION: HEENT: Head normocephalic, atraumatic. Eyes: Extraocular muscles are intact. Pupils are equal, round and reactive to light and accommodation. Ears: No lesions. Nose appeared normal. Throat: No exudate or erythema. NECK: Supple. No JVD, no carotid bruit. No lymphadenopathy or thyromegaly. LUNGS: Decreased breath sounds. Clear to auscultation. Percussion note normal. Chest symmetrical. HEART: S1, S2, no S3. No murmurs. No cyanosis or clubbing. No ascites. Pulses: Dorsalis pedis and posterior tibial pulses +1 to +2 bilaterally. ABDOMEN: Soft. Nontender. Bowel sounds active. No CVA tenderness. No mass felt. EXTREMITIES: No edema. Full range of motion of all extremities, equal. NEUROLOGIC: No focal deficit. Cranial nerves II through XII are grossly intact. No headache, no double vision or headache. SKIN: Not dry. Intact. Turgor - normal. LYMPHATIC: No palpable lymph nodes/no lymphedema. MUSCULOSKELETAL: Normal joints with no swelling. Muscle tone is normal. CONDITION: Overall stable. PLAN: 1. The patient was counseled for weight loss 2. Leg elevation 3. Cut down on salt intake 4. Advised to take Lasix and Aldactone on regular basis TIME SPENT: More than 30 minutes. Plan and coordination of the patient's care discussed in the presence of nurse. TRICIA
--- NOTE | 2019-01-20 11:06 | DS ---
DATE OF SERVICE: 01/14/19 FINAL DIAGNOSIS: CELLULITIS, LOWER EXTREMITIES LEG EDEMA, CHRONIC DIABETES, TYPE 2 (A1C 6.4 07/2018) HYPERTENSION MILD RESTRICTIVE LUNG DISEASE (PFT 08/2017) DYSLIPIDEMIA DJD SPINE NEUROPATHY ENDOMETRIAL/UTERINE CANCER MORBID OBESITY LAST ECHO: AUGUST 2017 LVH WITH ENLARGED LEFT ATRIAL CAVITY LVEF 52% CHOLECYSTECTOMY APPENDECTOMY HYSTERECTOMY LUMBAR SURGERY, FUSION L4-S1 LAST VITALS Temp Pulse Resp BP Pulse Ox 97.7 F 75 18 109/59 L 97 01/14/19 05:10 01/14/19 05:10 01/14/19 05:10 01/14/19 05:10 01/14/19 05:10 DISCHARGE INSTRUCTIONS: DISCHARGE HOME WITH SPOUSE. MAY RETURN TO WORK ON January. CLEAN LEGS WITH MILD SOAP AND WATER AT LEAST TWICE A DAY; THEN APPLY BACTROBAN OINTMENT TO ALL SCABBED AREAS. AN APPOINTMENT IS SCHEDULED WITH DR. OBRIEN/LISA SOMMERS APRN ON January AT 10 AM. CODE STATUS: FULL CODE. TAKE THESE MEDICATIONS AT HOME: Hydrocodone Bitart/Acetaminophen ([place] 7.5-325) 1 tab PO TID REMIGIO Aspirin (Aspirin Ec) 81 mg PO DAILYWM REMIGIO Clindamycin HCl (Cleocin) 300 mg PO TID REMIGIO Furosemide (Lasix Tab) 20 mg PO QDAC REMIGIO Loratadine (Claritin) 10 mg PO DAILY REMIGIO Losartan Potassium (Cozaar) 50 mg PO DAILY REMIGIO Metformin HCl (Glucophage) 500 mg PO DAILY REMIGIO Mupirocin (Bactroban) 1 applic TP BID REMIGIO Potassium Chloride (Micro-K Cap) 10 meq PO DAILY ERMIGIO Simvastatin (Zocor) 20 mg PO DAILY REMIGIO Spironolactone (Aldactone) 25 mg PO DAILY REMIGIO Verapamil HCl ([place] Sr) 240 mg PO DAILY REMIGIO ALLERGIES: amoxicillin trihydrate [From Augmentin] Adverse Reaction (Mild, Verified 01/13/19 10:35) potassium clavulanate [From Augmentin] Adverse Reaction (Mild, Verified 01/13/19 10:35) rosuvastatin calcium [From Crestor] Adverse Reaction (Mild, Verified 01/13/19 10:35) Sulfa (Sulfonamide Antibiotics) Adverse Reaction (Mild, Verified 01/13/19 10:35) DISCONTINUED MEDICATIONS: LOSARTAN 100 MG DAILY NEW PRESCRIPTIONS: LOSARTAN 50 MG DAILY (NO RX GIVEN) CLEOCIN 300 MG TID FOR 5 DAYS LASIX 20 MG DAILY ALDACTONE 25 MG DAILY SMOKING: NON SMOKER DISEASE SPECIFIC EDUCATION: LOW SALT DIET CELLULITIS LEG EDEMA, ELEVATING LEGS ABOVE THE LEVEL OF THE HIPS PRESCRIPTIONS APPOINTMENT DIET: CONSISTENT CARBOHYDRATES, DECREASE SALT ACTIVITY: RESUME TOLERATED ELEVATE LEGS ABOVE THE LEVEL OF THE HIPS AT NIGHT AND MUCH POSSIBLE LABS: Hgb 12.2, hct 38, WBC 8,000 normal differential, creatinine 0.7, BUN 17. HOSPITAL COURSE: 68 year old white female hospitalized with cellulitis of left lower extremity with weeping also with bilateral leg edema of +3 pitting duration 7 days. The patient was hospitalized and legs were elevated. Salt was cut down from the diet. The patient was given IV Lasix, Aldactone was added. The patient was educated about leg edema. The patient's leg edema practically down to trace to +1. Ulcers have healed up with health scab. No fever, no chills and no redness, mild redness around the 1cm size ulcers with scab. The patient discharged on Clindamycin. She was treated with Rocephin and Clindamycin during the stay in the hospital. The patient was advised to lose weight. Diet counseling was done, cut down on salt intake. Advised to keep the legs up. CONDITION: Stable. TIME SPENT: More than 60 minutes. MTDD
--- NOTE | 2019-01-20 11:07 | PN ---
01/11/19: Level 5 01/12/19: Intermediate 01/13/19: Intermediate 01/14/19: D as in discharge MTDD
--- NOTE | 2019-01-20 11:21 | PN ---
DATE OF SERVICE: 01/13/19 SUBJECTIVE: The patient was seen and examined with the Nurse Practitioner. She was admitted through the office with leg edema and cellulitis. Leg edema is +1. She is still keeping the legs hanging. She says that she is unable to keep her legs up because of back pain. I told her that if she doesn't keep her legs up she is getting to have leg swelling regardless of how much diuretic she would take. Advised her to cut down on salt intake. Advised to lose weight, her BMI is quite high. She may undergo echo to evaluate LV function but she is going to be discharged tomorrow. Cellulitis is resolving. CONDITION: Stable. TIME SPENT: More than 30 minutes. Plan and coordination of the patient's care discussed in the presence of nurse. TRICIA
--- NOTE | 2019-01-20 13:59 | PN ---
DATE OF SERVICE: 01/12/19 SUBJECTIVE: The patient was seen and examined with Nurse Practitioner. The patient's condition has improved. Leg edema is much less. It is +1. Cellulitis which was just the beginning with few ulcers have scabbed over and dried up. The patient strongly advised to cut down on salt. Advised to keep the legs higher than the hip practically all the time especially during the night time and during the day time when she sits down. CONDITION: Improving. TIME SPENT: More than 30 minutes. Plan and coordination of the patient's care discussed in the presence of nurse. TRICIA
--- NOTE | 2019-01-22 09:32 | HP ---
DATE OF SERVICE: 01/11/19 REASON FOR HOSPITALIZATION/HISTORY OF PRESENT ILLNESS: The patient was hospitalized with cellulitis with leg edema times 3 weeks with weeping left worse than right. Welcome to Medicare form filled out and reviewed. No symptoms of CHF/CAD. Reviewed all medications. PAST MEDICAL HISTORY: History of bilateral middle ear effusion, dizzy Lumbar radiculopathy Neuropathy Obesity Chronic leg edema Back surgery 2000 Cardiomyopathy Anemia Status post hysterectomy [place], Uterine/endometrial cancer Dr. Abrams 08/18 Left hip OA Fatty liver Diabetes Mellitus type II A1c 6.4 on 07-19 Hypertension/LVH Dyslipidemia Left bundle branch block DJD spine Hard of hearing PAST SURGICAL HISTORY: Appendectomy Tubal Tonsils Gallbladder DANIELITO REVIEW OF SYSTEMS: CONSTITUTIONAL: No fever, no fatigue. HEENT: No sinus drainage, no sore throat. RESPIRATORY: No cough, no congestion. CARDIOVASCULAR: No atypical chest pain for coronary artery disease. No angina, CHF symptoms, palpitations or shortness of breath. GASTROINTESTINAL: No melena or abdominal pain. No GERD. GENITOURINARY: No hematuria, no prostatism, no polyuria. PRODUCTION ENGINEER: No blackout, no dizziness, no headache, no double vision. MUSCULOSKELETAL: Osteoarthritis pain, no joint swelling. ENDOCRINE: No weight loss, no weight gain. SKIN: Not dry, no rash. PSYCHIATRIC: Anxious, no depression, no suicidal thoughts, no homicidal thoughts. SOCIAL HISTORY: Marital Status: . Alcohol Usage: No. Tobacco Usage: No. FAMILY HISTORY: Father - old age Mother CAD Brother diabetes mellitus Sister 2, brain aneurysm, CAD and diabetes mellitus MEDICATIONS: Aspirin 81mg Po daily Lisinopril 20mg PO daily Loratadine 10mg daily Verapamil ER 240mg PO daily Simvastatin 20mg PO daily [place] 7.5-325 three times a day Metformin 500mg PO daily Losartan 100mg PO daily Lasix 20mg Po daily K-Tab 10mg PO daily Neurontin 100mg twice a day ALLERGIES: Crestor Augmentin Sulfa PHYSICAL EXAMINATION: V/S: Pulse 86, blood pressure 122/64, O2 saturation 98%, height 5'5, BMI 43.9 with weight 264. GENERAL APPEARANCE: Oriented times three. HEENT: Normal. NECK: No JVP, no bruits. RESPIRATORY: Lungs are clear. CARDIOVASCULAR: S1, S2, no S3, no murmur. No cyanosis, clubbing. No ascites. GI/ABDOMEN: No tenderness. Bowel sounds are active. EXTREMITIES: Redness right and left. 2+ to 3 edema. 2 to 3 spots on left side oozing. PRODUCTION ENGINEER: Deep tendon reflexes, sensory, motor and gait all normal. RECTAL: 11/10 Dr. Deleon refused repeat./PELVIC: Mammogram 12/18 MM refused repeat for now. Hysterectomy 08/18 . ASSESSMENT: 1. Leg edema/cellulitis with ulcer/weeping. 2. Dr. Keli Abrams Oncologist/Equipment Maintenance Technician every 6 months 3. History of bilateral middle ear effusion, dizzy 4. Lumbar radiculopathy 5. Neuropathy 6. Obesity 7. Chronic leg edema 8. Back surgery 2000 9. Cardiomyopathy 10. Anemia 11.Status post hysterectomy [place], Uterine/endometrial cancer Dr. Abrams 08/18 12.Left hip OA 12.Fatty liver 14.Diabetes Mellitus type II A1c 6.4 on 07-19 15.Hypertension/LVH 16.Dyslipidemia 17.Left bundle branch block 18.DJD spine 19.Hard of hearing PLAN: 1. Admit 2. Routine telemetry orders 3. Elevate legs 4. IV Lasix 40mg now and QAM 5. Rocephin 1 gram IV piggy back 24 hours 6. Clindamycin 300mg PO TID daily 7. Discontinue PO Lasix 8. Discontinue Lisinopril 9. Cozaar 50mg PO daily 10.Continue all home medication 11.Daily CBC, CMP, TSH and T4 12.Aldactone 25mg PO daily TIME SPENT: More than 70 minutes. MTDD
== END 2019-01-14 14:25 | disposition home or self-care (01) | DRG 948 ==
LOC: MEDSURG B 16:23
PROVIDERS: ADMIT Internal Medicine; ATTEND Internal Medicine
DX: M53.9 Dorsopathy, unspecified; E11.9 Type 2 diabetes mellitus without complications; E78.5 Hyperlipidemia, unspecified; G62.9 Polyneuropathy, unspecified; R60.0 Localized edema; L03.116 Cellulitis of left lower limb; L03.115 Cellulitis of right lower limb; I10 Essential (primary) hypertension

== ENCOUNTER 2024-04-13 08:57 | Inpatient (IN) ==
[2024-04-13] MEDS: DUONEB NEB STA (09:24)
[2024-04-13 09:33] LABS: BASOPHILS % (AUTO) 0.2 % (0.0-3.0); HEMATOCRIT 38.2 % (37.0-47.0); HEMOGLOBIN 12.3 g/dl (12.0-16.0); IMMATURE GRANULOCYTE # (AUTO) 0.2 (0.0-1.0); IMMATURE GRANULOCYTE % (AUTO) 1.5 % (0.0-5.0); LYMPHOCYTES # (AUTO) 0.5 K/uL (0.60-3.4); MEAN CORPUSCULAR HEMOGLOBIN 27.8 pg (27.0-31.0); MEAN CORPUSCULAR HGB CONC 32.2 (31.8-35.4); MEAN CORPUSCULAR VOLUME 86.4 fl (81.0-99.0); MONOCYTES # (AUTO) 0.5 K/uL (0.4-2.0); MONOCYTES % (AUTO) 3.6 (0-10); NEUTROPHILS # (AUTO) 12.3 K/ul (2.0-6.9); NEUTROPHILS % (AUTO) 90.7 % (42.2-75.2); PLATELET COUNT 373 10^3/uL (140-440); RDW COEFFICIENT OF VARIATION 13.2 % (11.6-14.8); RED BLOOD COUNT 4.42 10^6/ul (4.20-5.40)
[2024-04-13 09:45] LABS: ALANINE AMINOTRANSFERASE 31.2 U/L (0-35); ALBUMIN 3.73 g/dL (3.5-5.0); ALKALINE PHOSPHATASE 152.3 U/L (53-141); ASPARTATE AMINO TRANSFERASE 65.5 U/L (14-36); BILIRUBIN,TOTAL 1.26 mg/dL (0.2-1.3); BLOOD UREA NITROGEN 20.1 mg/dL (7-17); CALCIUM 9.54 mg/dL (8.4-10.2); CHLORIDE 93.6 mmol/L (98-107); CREATININE 0.99 mg/dL (0.60-1.30); GLUCOSE 290.2 mg/dL (74-106); POTASSIUM 3.42 mmol/L (3.5-5.1); SODIUM 133.1 mmol/L (134.5-145); TOTAL PROTEIN 7.67 g/dL (6.3-8.2)
[2024-04-13 09:48] LABS: PARTIAL THROMBOPLASTIN TIME 33.3 SEC (23.9-40.0); PROTHROMBIN TIME 12.8 SEC (9.3-11.0)
--- NOTE | 2024-04-13 09:50 | DI ---
EXAM: CHEST RADIOGRAPH TECHNIQUE: Single frontal chest radiograph. HISTORY: Chest pain and shortness of breath. COMPARISON: 01/28/2024 FINDINGS: The patient is mildly leaning to the left. EKG leads and oxygen tubing project over the chest. Interval development of consolidation of the right lower lobe, with possible small right pleural effu jessie. No visible pneumothorax. Stable cardiomegaly and mild tortuosity of the thoracic aorta. No acute displaced rib fractures are identified. Degenerative changes of the glenohumeral joints, left greater than right, again noted. IMPRESSION: 1. Probable pneumonia of the right lower lobe with equivocal small right pleural effusion. Follow-u p radiographs are recommended to show resolution.
[2024-04-13 09:53] LABS: MOLECULAR FLU A POSITIVE BY NAAT (NEGATIVE); MOLECULAR FLU B NEGATIVE BY NAAT (NEGATIVE); RSV MOLECULAR NEGATIVE BY NAAT (NEGATIVE); SARS COV-2 RNA RAPID NAAT NEGATIVE (NEGATIVE)
[2024-04-13] MEDS: ZOFRAN SDV IVP STA (09:55)
[2024-04-13] MEDS: DECADRON IVP ONE (09:55)
[2024-04-13] MEDS: PEPCID IVP ONE (09:55)
[2024-04-13 09:59] LABS: TROPONIN I < 0.012 ng/ml (0.0000-0.120)
[2024-04-13] MEDS: ZOSYN 3.375 GM 3.375 GM in SODIUM CHLORIDE 100ML 100 ML IV ONE (10:03)
[2024-04-13] MEDS: TAMIFLU CAPSULE PO ONE (10:06)
--- NOTE | 2024-04-13 10:10 | ED.PDOC ---
General ED Provider: Dr. GEOFFREY BREAUX DO Chief Complaint: Cough Stated Complaint: 73-year-old female presents to the ER with shortness of breath. They went to a last Friday and ever since then she said shortness of breath and been sick for the 's report who is the primary historian at bedside. The patient is very hard of hearing which limits some of the conversation with her. The patient apparently had a fall on Friday that was not seen by any medical personnel. The fire department was called to help with a lift assist. Since that time the patient had poor oral intake, been lethargic, less active and appears to be short of breath. History of hypertension, diabetes, hyperlipidemia. Reviewed in chart as available otherwise. Not oxygen dependent. Arrives to the ER 89%. Time Seen by Provider: 04/13/24 09:11 Information Source: Patient Primary Care Provider: MICHAEL OBRIEN MD Nursing and Triage Documentation Reviewed and Agree: Yes What is Opioid Naive?: *Opioid Naive implies the patient is not already taking opioids or not chronically receiving opioids on a daily basis. *PRN dosing is not "usually" associated with tolerance. *Patients are at higher risk of over-sedation and aspiration. What is Opioid Tolerant?: *Opioid Tolerance implies less than the expected response to an opioid. *Acquired tolerance is defined by the patient taking 60mg of oral morphine daily (or equianalgesic dose of another opioid) for 1 week or more. *Often associated with chronic pain. *May take more than usual dose to achieve desired pain control. Review of Systems Review Of Systems Constitutional: Reports No symptoms All Other Systems: Reviewed and Negative [facility] Medical History (Updated 04/13/24 @ 10:10 by GEOFFREY BREAUX DO) Encounter for Medicare annual wellness exam Z00.00 - Encounter for general adult medical examination without abnormal findings (ICD-10) Osteoarthritis of left shoulder M19.012 - Primary osteoarthritis, left shoulder (ICD-10) Chronic back pain M54.9 - Dorsalgia, unspecified (ICD-10) Hypercholesteremia E78.00 - Pure hypercholesterolemia, unspecified (ICD-10) Family History Mother Hypertension Mother Diabetes Mother Heart attack Sister Diabetes Brother Hypertension Social History Passive smoking exposure: Yes Who is smoking: other Alcohol intake: never Substance use type: does not use Adopted: No Foster care: No Household members: spouse Housing: house Marital status: M Number of children: 2 service: No halfway: No Current occupational status: unemployed Current occupational exposures/hazards: No Pets and animals: No History of recent travel: No Current gender identity: female Seatbelt use: always Helmet use: No Drives intoxicated or rides with intoxicated rivet driver: No Working smoke detector in home: Yes Fire extinguisher in home: Yes Carbon monoxide detector in home: Yes Firearms in home: Yes Surgical History History of hysterectomy for cancer Removed in 2017 [place] Z90.710 - Acquired absence of both cervix and uterus (ICD-10) C80.1 - Malignant (primary) neoplasm, unspecified (ICD-10) No history of previous surgery back surgery removed bottom 2 discs and replaced with bone-2000 History of tubal ligation 40+ years ago Z98.51 - Tubal ligation status (ICD-10) Status post tonsillectomy 46 years ago Z90.89 - Acquired absence of other organs (ICD-10) Status post cholecystectomy late 1970's Z90.49 - Acquired absence of other specified parts of digestive tract (ICD- 10) Status post appendectomy age 18 Z90.49 - Acquired absence of other specified parts of digestive tract (ICD- 10) Female Reproductive History Menstrual Hx Hysterectomy: Yes Hx Tubal Ligation: Yes Physical Exam Physical Exam Appearance: Reports Ill-appearing, No pain distress and Well-nourished Ill-appearing: Severe Eyes: Reports DANGELO, EOMI and Conjunctiva clear ENT: Reports Nose normal and Oropharynx normal Neck: Supple Respiratory: Reports Airway patent, Breath sounds diminished and Retractions Cardiovascular: Reports Pulses normal and Tachycardia GI/: Reports Soft and Nontender Musculoskeletal: Reports Normal strength and ROM intact Skin: Reports Warm, Dry and Normal color Neurological: Reports Sensation intact, Motor intact, Alert and Oriented Psychiatric: Reports Affect appropriate and Mood appropriate Interpretation EKG Interpretation EKG Interpretation By: ED Physician (Independent or potation) Time of EKG #1: 09:32 Rate: Tachy (111) Rhythm: Sinus Ectopy: None [place]: [place] ST Segment: Normal Radiology Interpretation Radiology Interpretation By: ED Physician (Independent interpretation) Radiology Results: Positive (Right lower lobe pneumonia) Exam Interpreted: Portable CXR Re-Evaluation Re-Evaluation Additional Comments: 73-year-old female presents to the ER hypoxic and respiratory distress/shortness of breath. She is tachycardic on presentation with oxygen saturation 89%. This would qualify for SIRS and with the respiratory source, sepsis workup immediately initiated. The patient has a near white count of 14 with 13.6. She certainly has a right shift and bandemia. This would all suggest bacterial pneumonia. Viral swabs also obtained which demonstrate a positive influenza test. So she has not not only bacterial pneumonia but on top of the viral infection as well. Patient was given Zosyn and meropenem. Laboratory results reviewed otherwise. Renal function appropriate for the antibiotics chosen. I did not give a fluid bolus to this patient due to the hypoxia and my concern for fluid overload therefore this was a purposeful decision to not give the 30 cc/kg bolus for the sepsis workup. Doubt other acute cardiopulmonary processes present. Troponin, BNP all negative for acute findings to suggest a primary source for her symptoms here today. Patient given breathing treatments in Emergency Department as well which did improve her oxygen saturations but she remained oxygen dependent 2 to 4 L/min to maintain over 94%. She remains tachycardic at this time. I discussed case with the hospital service as well as the patient's primary care provider all of which are on board for hospitalization. 1010: Tissue perfusion reassessment completed. No adverse interval change. Course Course 04/13/24 09:29 04/13/24 09:29 Orders, Labs, Meds: Lab Review 04/13/24 04/13/24 09:25 09:29 WBC 13.60 H RBC 4.42 Hgb 12.3 Hct 38.2 MCV 86.4 MCH 27.8 MCHC 32.2 RDW Coeff of Saundra 13.2 Plt Count 373 Immature Gran % (Auto) 1.5 Neut % (Auto) 90.7 H Lymph % (Auto) 4.0 L [place] % (Auto) 3.6 Eos % (Auto) 0.0 Baso % (Auto) 0.2 Neut # (Auto) 12.3 H Lymph # (Auto) 0.5 L [place] # (Auto) 0.5 Eos # (Auto) 0.0 Baso # (Auto) 0.0 Immature Gran # (Auto) 0.2 PT 12.8 H INR 1.25 APTT 33.3 Sodium 133.1 L Potassium 3.42 L Chloride 93.6 L Carbon Dioxide 25.0 Anion Gap 17.92 BUN 20.1 H Creatinine 0.99 Estimated GFR (MDRD) 55.00 BUN/Creatinine Ratio 20.30 Glucose 290.2 H Lactic Acid 2.09 Calcium 9.54 Total Bilirubin 1.26 AST 65.5 H ALT 31.2 Alkaline Phosphatase 152.3 H Troponin I < 0.012 NT-Pro-B Natriuret Pep 320 H Total Protein 7.67 Albumin 3.73 Globulin 3.94 Albumin/Globulin Ratio 0.94 Influ A Molecular Assay Positive by naat H Influ B Molecular Assay Negative by naat RSV Antigen Negative by naat SARS CoV-2 RNA Rapid KRISTYN Negative Orders Category Date Time Status ADMIT PATIENT INPATIENT .TO [facility] (MONITORED BED) ADMISSION 04/13/24 10:03 Ordered EKG-(ED ONLY) Stat CARDIO 04/13/24 09:15 Completed NEBULIZER TREATMENT Stat CARDIO 04/13/24 09:15 Completed TELEMETRY MONITORING TELE CARE 04/13/24 10:03 Ordered BLOOD CULTURE (ED ONLY) Stat LAB 04/13/24 09:47 Received CBC W/ AUTO DIFF Stat LAB 04/13/24 09:29 Completed CMP [COMPREHENSIVE METABOLIC PANEL] Stat LAB 04/13/24 09:29 Completed COVID [SARS COV-2 RNA RAPID KRISTYN] Stat LAB 04/13/24 09:25 Completed ED PROBNP [NT-PROBNP(ED)] Stat LAB 04/13/24 09:29 Completed FLU A & B MOLECULAR [FLU A/B MOLECULAR] Stat LAB 04/13/24 09:25 Completed LACTIC ACID Stat LAB 04/13/24 09:29 Completed PT WITH INR Stat LAB 04/13/24 09:29 Completed PTT [PARTIAL THROMBOPLASTIN TIME] Stat LAB 04/13/24 09:29 Completed RSV Stat LAB 04/13/24 09:25 Completed SPUTUM CULTURE Stat LAB 04/13/24 09:55 Uncollected TROPONIN I Stat LAB 04/13/24 09:29 Completed URINALYSIS C & S IF INDICATED Stat LAB 04/13/24 09:16 Uncollected Dexamethasone Sod Phosphate [Decadron] Meds 04/13/24 09:15 Discontinued 10 mg IVP ONCE ONE Famotidine Inj [Pepcid] Meds 04/13/24 09:15 Discontinued 20 mg IVP ONCE ONE Ipratropium/Albuterol Neb [Duoneb] Meds 04/13/24 09:15 Discontinued 6 ml NEB ONCE STA Meropenem 1Gm/NaCl Premix [Merrem 1 gm/50 ml NaCl] Meds 04/13/24 09:55 Active 1 gm in 50 ml IV ONCE Ondansetron HCl/Pf [Zofran Sdv] Meds 04/13/24 09:15 Discontinued 4 mg IVP ONCE STA Oseltamivir Phosphate Capsule [Tamiflu Capsule] Meds 04/13/24 09:58 Discontinued 75 mg PO ONCE ONE Piperacillin Sodium/Tazobactam [Zosyn 3.375 gm] 3.375 Meds 04/13/24 09:28 Discontinued gm 0.9 % Sodium Chloride [Sodium Chloride 100Ml] 100 ml IV ONCE CHEST, 1V AP ONLY Stat RADS 04/13/24 09:16 Completed Medications Generic Name Dose Route Start Last Admin Trade Name Freq PRN Reason Stop Dose Admin Meropenem/Sodium Chloride 1 gm in 50 mls @ 100 mls/hr 04/13/24 09:55 Merrem 1 Gm/50 Ml Nacl IV 04/13/24 10:24 ONCE ONE Discontinued Medications Generic Name Dose Route Start Last Admin Trade Name Freq PRN Reason Stop Dose Admin Albuterol/Ipratropium 6 ml 04/13/24 09:15 04/13/24 09:24 Ipratropium/Albuterol Vial.Neb NEB 04/13/24 09:16 6 ml ONCE STA Administration Dexamethasone Sodium Phosphate 10 mg 04/13/24 09:15 04/13/24 09:55 Dexamethasone Sod Phos 10 Mg/Ml Inj IVP 04/13/24 09:16 10 mg ONCE ONE Administration Famotidine 20 mg 04/13/24 09:15 04/13/24 09:55 Famotidine Inj 20 Mg/2 Ml Vial IVP 04/13/24 09:16 20 mg ONCE ONE Administration Piperacillin Sod/Tazobactam 100 mls @ 200 mls/hr 04/13/24 09:28 Sod 3.375 gm/ Sodium Chloride IV 04/13/24 09:57 ONCE ONE Ondansetron HCl 4 mg 04/13/24 09:15 04/13/24 09:55 Ondansetron Hcl/Pf 4 Mg/2 Ml Sdv IVP 04/13/24 09:16 4 mg ONCE STA Administration Oseltamivir Phosphate 75 mg 04/13/24 09:58 Oseltamivir Phosphate 75 Mg Capsule PO 04/13/24 09:59 ONCE ONE Vital Signs: Temp Pulse Resp BP Pulse Ox O2 Flow Rate 04/13/24 09:52 2 04/13/24 09:08 96.8 F L 120 H 22 H 168/82 H 89 L Discharge Plan Discharge Patient Disposition: ADMITTED INPATIENT Discharge Problem: Severe sepsis, Pneumonia, Influenza A Prescriptions: No Action (DME) GLUCOMETER FREE STYLE E11.9 See Rx Instructions .ROUTE .MEDSUPPLY Qty: 1 0RF Rx Instructions: TEST 3 TIMES DAILY (DME) FreeStyle Lite Strips Strip See Rx Instructions .ROUTE Qty: 100 5RF Rx Instructions: As directed E11.9 insulin glargine [Lantus Solostar U-100 Insulin] 100 unit/mL (3 mL) insulin pen 15 unit subcut QDAY Qty: 15 5RF verapamil 240 mg tablet extended release 240 mg PO DAILY Qty: 90 0RF potassium chloride 10 mEq tablet extended release 10 meq PO DAILY Qty: 90 0RF Rybelsus 7 mg tablet 7 mg PO QDAY Qty: 30 2RF metformin 1,000 mg tablet 1,000 mg PO 2XD Qty: 180 1RF gabapentin 100 mg capsule 200 mg PO BID Qty: 360 1RF lisinopril 20 mg tablet 20 mg PO DAILY Qty: 90 1RF hydrocodone-acetaminophen 7.5-325 mg tablet 1 tab PO TID PRN (Reason: pain) Qty: 90 0RF losartan 100 mg tablet 100 mg PO DAILY Qty: 90 1RF aspirin 81 MG tablet,chewable 81 mg PO DAILY loratadine 10 MG tablet 10 mg PO DAILY methocarbamol 750 mg tablet 750 mg PO Q6H Qty: 28 0RF lidocaine 4 % adhesive patch,medicated 1 patch topical DAILY PRN (Reason: pain) Qty: 30 1RF alcohol swabs [BD Alcohol Swabs] Pads, Medicated 1 pad topical QPM Qty: 200 0RF (DME) BD Eclipse Luer-Beckie 25 gauge x 1 1/2" needle See Rx Instructions .ROUTE Qty: 100 0RF Rx Instructions: As directed cholecalciferol (vitamin D3) 50 mcg (2,000 unit) capsule 100 mcg PO QDAY geriatric multivitamin-min Tablet PO ONCE alprazolam [Xanax] 0.25 mg tablet 0.25 mg PO BID PRN (Reason: anxiety) Qty: 30 1RF simvastatin 40 mg tablet 40 mg PO .Q Every Other Day PM spironolactone 25 mg tablet 25 mg PO QDAY celecoxib [Celebrex] 100 mg capsule 100 mg PO BID Did you review [place] CON[employer]IDENT[employer] INVE[employer]IGATOR for ALL controlled substances?: Not Applicable ED Provider: GEOFFREY BREAUX Condition: Fair
[2024-04-13] MEDS: MERREM 1 GM/50 ML NACL 1 GM/50 ML BAG IV ONE (10:38)
[2024-04-13] MEDS: ZOSYN 3.375 GM 3.375 GM in SODIUM CHLORIDE 100ML 100 ML IV SCH (11:36)
[2024-04-13 11:52] VITALS: BMI 38.6
[2024-04-13] MEDS: K-DUR PO ONE (12:49)
[2024-04-13] MEDS: HUMULIN R (10ML) SUBCUT PRN (12:55)
[2024-04-13] MEDS ORDERED: XANAX PO PRN (13:18)
[2024-04-13] MEDS ORDERED: NON-FORMULARY MEDICATION (Methocarbamol 750 mg tablet) PO SCH (13:30)
[2024-04-13] MEDS: ASPIRIN CHEWABLE PO SCH (13:58)
[2024-04-13] MEDS: CALAN SR PO SCH (13:59)
[2024-04-13] MEDS: ZESTRIL PO SCH (13:59)
[2024-04-13] MEDS: DUONEB NEB SCH (14:04)
--- NOTE | 2024-04-13 14:17 | PCM ---
Date of Service Date Seen by Provider: 04/13/24 Time Seen by Provider: 13:00 Admit Day/Time Admission Date: 04/13/24 Admission Time: 10:10 Reason for Admission Chief Complaint: SEVERE SEPSIS, PNEUMONIA, FLU A Hospital Provider Hospital Provider: MARCUS FARRELL, [facility] [place] Phys[place] Primary Care Physician: MICHAEL OBRIEN MD History of Present Illness History of Present Illness: 73 yo female with pmh of HTN, anemia, HLD, DM2, and dilated cardiomyopathy presented to the ER with shortness of breath. Patient states she has been sick since Friday of last week. Reports fever "but not really high", dry cough, and shortness of breath. Denies nausea, vomiting, or diarrhea. Denies any sick contacts that she knows of. Has been laying around a lot. Does not wear oxygen at home. Has not taken any of her medicines since . Found to have influenza A, possible R lower lobe pneumonia, and new small pleural effusion. Met sepsis criteria due to HR in 120s, RR 22, WBC 13. IV fluids not given due to cardiomyopathy. O2 sat was running 89% on RA. Requiring 2L at this time to maintain sat above 92%. Admitted to med/surg observation. Case Discussed With Case Discussed With: Patient's case was discussed with the ER Physicians, Dr. Babin. [facility] Medical History Encounter for Medicare annual wellness exam Z00.00 - Encounter for general adult medical examination without abnormal findings (ICD-10) Osteoarthritis of left shoulder M19.012 - Primary osteoarthritis, left shoulder (ICD-10) Chronic back pain M54.9 - Dorsalgia, unspecified (ICD-10) Hypercholesteremia E78.00 - Pure hypercholesterolemia, unspecified (ICD-10) Surgical History History of hysterectomy for cancer Removed in 2017 [place] Z90.710 - Acquired absence of both cervix and uterus (ICD-10) C80.1 - Malignant (primary) neoplasm, unspecified (ICD-10) No history of previous surgery back surgery removed bottom 2 discs and replaced with bone-2000 History of tubal ligation 40+ years ago Z98.51 - Tubal ligation status (ICD-10) Status post tonsillectomy 46 years ago Z90.89 - Acquired absence of other organs (ICD-10) Status post cholecystectomy late 1970's Z90.49 - Acquired absence of other specified parts of digestive tract (ICD- 10) Status post appendectomy age 18 Z90.49 - Acquired absence of other specified parts of digestive tract (ICD- 10) Family History Mother Hypertension Mother Diabetes Mother Heart attack Sister Diabetes Brother Hypertension Social History Smoking and tobacco status: Smoker, status unknown Passive smoking exposure: Yes Who is smoking: other Second hand smoke exposure: No ( smokes but outside ) Alcohol intake: never Substance use type: does not use Adopted: No Foster care: No Household members: spouse Housing: house Marital status: M Number of children: 2 service: No FPC: No Current occupational status: unemployed Current occupational exposures/hazards: No Pets and animals: No History of recent travel: No Current gender identity: female Seatbelt use: always Helmet use: No Drives intoxicated or rides with intoxicated 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 Working smoke detector in home: Yes Fire extinguisher in home: Yes Carbon monoxide detector in home: Yes Firearms in home: Yes Allergies Allergies Allergy/AdvReac Type Severity Reaction Status Date / Time amoxicillin trihydrate (From AdvReac Mild Hives Verified 04/13/24 09:13 Augmentin) potassium clavulanate (From AdvReac Mild Hives Verified 04/13/24 09:13 Augmentin) rosuvastatin calcium (From AdvReac Mild Abdominal Verified 04/13/24 09:13 Crestor) Pain Sulfa (Sulfonamide AdvReac Mild Hives Verified 04/13/24 09:13 Antibiotics) Current Medications Home Medications Acetaminophen (Acetaminophen 325 Mg Tablet) 650 mg PO Q4H PRN PRN Reason: Mild Pain Hydrocodone Bitart/Acetaminophen (Hydrocodone Bit/Acetaminophen 7.5/325 Mg Tablet) 1 tab PO TID PRN PRN Reason: Pain Albuterol/Ipratropium (Ipratropium/Albuterol Vial.Neb) 3 ml NEB RTQ4H REMIGIO Last Admin: 04/13/24 14:04 Dose: 3 ml Alprazolam (Alprazolam 0.25 Mg Tablet) 0.25 mg PO BID PRN PRN Reason: Anxiety Aspirin (Aspirin 81 Mg Tab.Chew) 81 mg PO DAILYWM2 [facility] Last Admin: 04/13/24 13:58 Dose: 81 mg Enoxaparin Sodium (Enoxaparin Sodium 40 Mg/0.4 Ml Syr) 40 mg SUBCUT DAILY [facility] Gabapentin (Gabapentin 100 Mg Capsule) 200 mg PO BID [facility] CEFEPIME 2 GM/D5W (Maxipime 2 Gm/50 Ml D5w) 2 gm in 50 mls @ 100 mls/hr IV Q8HR [facility] Stop: 04/16/24 20:59 VANCOMYCIN/WATER FOR INJ (PEG) (Vancomycin 750 Mg/150 Ml Bag) 750 mg in 150 mls @ 150 mls/hr IV Q12HR [facility] Stop: 04/16/24 20:59 Insulin Glargine (Insulin Glargine,Hum.Rec.Anlog 100 Units/Ml) 15 unit SUBCUT DAILY [facility] Insulin Human Regular (Insulin Regular, Human 100 Unit/Ml (10ml) Vial) 0 unit SUBCUT PRN PRN; Protocol PRN Reason: Hyperglycemia Last Admin: 04/13/24 12:55 Dose: 4 unit Lisinopril (Lisinopril 10 Mg Tablet) 20 mg PO DAILY [facility] Last Admin: 04/13/24 13:59 Dose: 20 mg Loratadine (Loratadine 10 Mg Tablet) 10 mg PO DAILY [facility] Losartan Potassium (Losartan Potassium 100 Mg Tablet) 100 mg PO DAILY [facility] Methocarbamol (Methocarbamol 500 Mg Tablet) 750 mg PO Q6HR [facility] Methylprednisolone Sodium Succinate (Methylprednisolone Sod Succ/Pf 40 Mg/Ml Vial) 40 mg IVP Q8HR [facility] Potassium Chloride (Potassium Chloride 10 Meq Capsule.Er) 10 meq PO DAILYWM2 [facility] Simvastatin (Simvastatin 40 Mg Tablet) 40 mg PO EVERY OTHER DAY@2100 [facility] Verapamil HCl (Verapamil Hcl 120 Mg Tablet.Er) 240 mg PO DAILY [facility] Last Admin: 04/13/24 13:59 Dose: 240 mg aspirin 81 mg chewable tablet 81 mg PO DAILY 04/01/14 [History Confirmed 04/13/24] loratadine 10 mg tablet 10 mg PO DAILY 10/29/16 [History Confirmed 04/13/24] cholecalciferol (vitamin D3) 50 mcg (2,000 unit) capsule 100 mcg PO QDAY [History Confirmed 04/13/24] GLUCOMETER FREE STYLE E11.9 ##1 05/06/22 [Rx Confirmed 04/13/24] blood sugar diagnostic (FreeStyle Lite Strips) #100 ea 05/06/22 [Rx Confirmed 04/13/24] alcohol swabs (BD Alcohol Swabs) 1 pad topical QPM #200 ea 06/03/22 [Rx Confirmed 04/13/24] safety needles 25 gauge x 1 1/2" (BD Eclipse Luer-Beckie) #100 ea 06/03/22 [Rx Confirmed 04/13/24] insulin glargine 100 unit/mL (3 mL) subcutaneous pen (Lantus Solostar U-100 Insulin) 15 unit (0.15 mL) subcut QDAY #15 mL 08/26/22 [Rx Confirmed 04/13/24] geriatric multivitamin-min 1 tab PO DAILY 07/29/23 [History Confirmed 04/13/24] alprazolam 0.25 mg tablet (Xanax) 0.25 mg PO BID PRN anxiety #30 tabs 10/27/23 [Rx Confirmed 04/13/24] potassium chloride 10 mEq tablet,extended release 10 meq PO DAILY #90 tabs 11/04/23 [Rx Confirmed 04/13/24] semaglutide 7 mg tablet (Rybelsus) 7 mg PO QDAY #30 tabs 11/04/23 [Rx Confirmed 04/13/24] verapamil 240 mg tablet,extended release 240 mg PO DAILY #90 tabs 11/04/23 [Rx Confirmed 04/13/24] celecoxib 100 mg capsule (Celebrex) 100 mg PO BID 12/02/23 [History Confirmed 04/13/24] simvastatin 40 mg tablet 40 mg PO .Q Every Other Day PM 12/02/23 [History Confirmed 04/13/24] spironolactone 25 mg tablet 25 mg PO QDAY 12/02/23 [History Confirmed 04/13/24] lidocaine 4 % topical patch 1 patch topical DAILY PRN pain #30 ea 01/28/24 [Rx Confirmed 04/13/24] methocarbamol 750 mg tablet 750 mg PO Q6H #28 tabs 01/28/24 [Rx Confirmed 04/13/24] gabapentin 100 mg capsule 200 mg (2 x 100 mg) PO BID #360 caps 02/03/24 [Rx Confirmed 04/13/24] metformin 1,000 mg tablet 1,000 mg PO 2XD #180 tabs 02/03/24 [Rx Confirmed 04/13/24] lisinopril 20 mg tablet 20 mg PO DAILY #90 tabs 03/01/24 [Rx Confirmed 04/13/24] hydrocodone 7.5 mg-acetaminophen 325 mg tablet 1 tab PO TID PRN pain #90 tabs 03/10/24 [Rx Confirmed 04/13/24] losartan 100 mg tablet 100 mg PO DAILY #90 tabs 03/18/24 [Rx Confirmed 04/13/24] Opioid Naive vs. Tolerant Does Patient Take Opioids?: Yes Is Patient Opioid Naive?: No What is Opioid Naive?: *Opioid Naive implies the patient is not already taking opioids or not chronically receiving opioids on a daily basis. *PRN dosing is not "usually" associated with tolerance. *Patients are at higher risk of over-sedation and aspiration. Is Patient Opioid Tolerant?: No What is Opioid Tolerant?: *Opioid Tolerance implies less than the expected response to an opioid. *Acquired tolerance is defined by the patient taking 60mg of oral morphine daily (or equianalgesic dose of another opioid) for 1 week or more. *Often associated with chronic pain. *May take more than usual dose to achieve desired pain control. Review of Systems Constitutional: Reports Fever and Weakness Head: Reports Normocephalic Eyes: Reports No symptoms Ears: Reports No symptoms Nose: Reports No symptoms Mouth: Reports No symptoms Throat: Reports No symptoms Cardiovascular: Reports No symptoms Respiratory: Reports Cough and Shortness of air Gastrointestinal: Reports No symptoms Genitourinary: Reports No Symptoms Musculoskeletal: Reports No symptoms Endocrine: Reports No symptoms Hematology: Reports No symptoms Immunology: Reports No symptoms Neurological: Reports No symptoms Psychiatric: Reports No symptoms Physical examination Most Recent Vital Signs: Most Recent Vital Signs Temperature 97.0 F L 04/13/24 10:49 Temperature Source Tympanic 04/13/24 10:49 Temperature Source Temporal Artery Scan 04/13/24 09:08 Pulse Rate 112 H 04/13/24 10:49 Respiratory Rate 20 04/13/24 10:49 Blood Pressure 168/82 H 04/13/24 09:08 Blood Pressure Left Arm 147/79 04/13/24 10:49 Blood Pressure Position Sitting 04/13/24 10:49 O2 Sat by Pulse Oximetry 93 L 04/13/24 14:01 Oxygen Delivery Method Nasal Cannula 04/13/24 14:01 Oxygen Flow Rate 2 04/13/24 14:01 Height 5 ft 5 in 04/13/24 10:49 Weight 105.3 kg 04/13/24 10:49 Telemetry Type Remote Telemetry 04/13/24 10:49 Telemetry Monitoring Started 04/13/24 10:49 Irregular Telemetry Rate (Approximate) 100-110 BPM 04/13/24 10:49 Telemetry Heart Rate 114 H 04/13/24 10:49 EKG MA Interval 0.11 L 04/13/24 10:49 EKG QRS Interval 0.08 04/13/24 10:[address] 04/13/24 10:49 Appearance: Positive No Apparent Distress, Alert and Oriented x3, Ill-Appearing, Obese and Other Skin: Positive Warm and Good Turgor HEENT: Positive Normocephalic, Atraumatic, PERRLA and Other (extremely [place]) Neck: Positive Supple and Midline Trachea Chest/Lungs: Positive Symmetrical With Equal Breath Sounds, Rhonci (to R lung, diminished) and Other (diminished breath sounds to L lung) Heart: Positive RRR and Pulses Normal GI/: Positive Soft, Nontender, Bowel Sounds Normal and No Distention Musculoskeletal: Positive Instability (off balance) Extremities: Positive Edema (+1 mild pitting BLE), Intact Peripheral Pulses, Stable Joints Without Laxity and Good ROM in All Joints Neurological: Positive Sensation Intact, Motor intact, Alert, Oriented and Other (generalized weakness) Labs This Visit Labs This Visit: Labs This Visit 04/13/24 04/13/24 09:25 09:29 WBC 13.60 H RBC 4.42 Hgb 12.3 Hct 38.2 MCV 86.4 MCH 27.8 MCHC 32.2 RDW Coeff of [place] 13.2 Plt Count 373 Immature Gran % (Auto) 1.5 Neut % (Auto) 90.7 H Lymph % (Auto) 4.0 L [place] % (Auto) 3.6 Eos % (Auto) 0.0 Baso % (Auto) 0.2 Neut # (Auto) 12.3 H Lymph # (Auto) 0.5 L [place] # (Auto) 0.5 Eos # (Auto) 0.0 Baso # (Auto) 0.0 Immature Gran # (Auto) 0.2 PT 12.8 H INR 1.25 APTT 33.3 Sodium 133.1 L Potassium 3.42 L Chloride 93.6 L Carbon Dioxide 25.0 Anion Gap 17.92 BUN 20.1 H Creatinine 0.99 Estimated GFR (MDRD) 55.00 BUN/Creatinine Ratio 20.30 Glucose 290.2 H Lactic Acid 2.09 Calcium 9.54 Total Bilirubin 1.26 AST 65.5 H ALT 31.2 Alkaline Phosphatase 152.3 H Troponin I < 0.012 NT-Pro-B Natriuret Pep 320 H Total Protein 7.67 Albumin 3.73 Globulin 3.94 Albumin/Globulin Ratio 0.94 Procalcitonin 5.21 H Influ A Molecular Assay Positive by naat H Influ B Molecular Assay Negative by naat RSV Antigen Negative by naat SARS CoV-2 RNA Rapid KRISTYN Negative Imaging Imaging: EXAM: CHEST RADIOGRAPH FINDINGS: The patient is mildly leaning to the left. EKG leads and oxygen tubing project over the chest. Interval development of consolidation of the right lower lobe, with possible small right pleural effusion. No visible pneumothorax. Stable cardiomegaly and mild tortuosity of the thoracic aorta. No acute displaced rib fractures are identified. Degenerative changes of the glenohumeral joints, left greater than right, again noted. IMPRESSION: 1. Probable pneumonia of the right lower lobe with equivocal small right pleural effusion. Follow-up radiographs are recommended to show resolution. Review Statement Review Statement: I have independently reviewed and interpreted the labs/EKGs/imaging that were or dered by the ER provider. I have reviewed all outside records that are available currently in our EMR including imaging/notes/labs from previous visits. Plan Plan: 1. Acute Hypoxic Respiratory Failure in setting of Influenza A, Possible right CAP, and Pleural Effusion - wean oxygen as tolerated, nebs, steroids 2. Sepsis in setting of possible right CAP - blood cultures pending, given zosyn and merrem in ER, switched to cefepime and vanc for gram + and - coverage, procal 5 - trend and monitor, appears mildly hypervolemic due to cardiomyopathy, no IV fluids given 3. Possible R CAP - procal 5, cefepime and vanc, steroids, nebs, mrsa, strep pneumo, legionella, and sputum culture ordered 4. Influenza A - onset likely 1 week ago, out of window for Tamiflu, conservative measures, isolation 5. Dilated Cardiomyopathy - new pleural effusion on x-ray compared to 01/24, last echo 01/2019 with EF 54%, will order echo for tomorrow, gentle diuresis lasix 20 mg Q12H for now, daily weight, I&O 6. HTN - chronic, continue home medications 7. DM2 - chronic, accuchecks qid with ssi, continue home lantus, hold oral meds DVT Prophylaxis: Lovenox Time Spent: Greater than 80 minutes spent with patient, 50% of the time spent with this patient was devoted to counseling and coordination of care. [facility]annin minutes spent discussing advance care planning. Disposition: Admit to: Med/surg Observation Full Code Discussed Plan of Care with Dr. Tex Obrien. Medications Medication Orders: Medications Ordered Category Date Time Status Acetaminophen [Tylenol] Meds 04/13/24 11:22 Active 650 mg PO Q4H PRN Alprazolam [Xanax] Meds 04/13/24 13:18 Active 0.25 mg PO BID PRN Aspirin [Aspirin Chewable] Meds 04/13/24 13:30 Active 81 mg PO DAILYWM2 Cefepime 2 gm/D5w [Maxipime 2 gm/50 ml D5w] Meds 04/13/24 21:00 Active 2 gm in 50 ml IV Q8HR Enoxaparin Sodium [Lovenox] Meds 04/14/24 09:00 Active 40 mg SUBCUT DAILY Gabapentin [Neurontin] Meds 04/13/24 21:00 Active 200 mg PO BID Hydrocodone Bit/Acetaminophen [[place] 7.5-325] Meds 04/13/24 13:18 Active 1 tab PO TID PRN Insulin Glargine,Hum.rec.anlog [Lantus] Meds 04/14/24 09:00 Active 15 unit SUBCUT DAILY Insulin Regular, Human [Humulin R (10Ml)] Meds 04/13/24 11:22 Active See Protocol SUBCUT PRN PRN Ipratropium/Albuterol Neb [Duoneb] Meds 04/13/24 14:00 Active 3 ml NEB RTQ4H Lisinopril [Zestril] Meds 04/13/24 13:30 Active 20 mg PO DAILY Loratadine [Claritin] Meds 04/14/24 09:00 Active 10 mg PO DAILY Losartan Potassium [Cozaar] Meds 04/14/24 09:00 Active 100 mg PO DAILY Methocarbamol [Robaxin] Meds 04/13/24 18:00 Active 750 mg PO Q6HR Methylprednisolone Sod Succ/Pf [Solu-Medrol 40 mg] Meds 04/13/24 18:00 Active 40 mg IVP Q8HR Potassium Chloride [Micro-K Cap] Meds 04/14/24 07:30 Active 10 meq PO DAILYWM2 Simvastatin [Zocor] Meds 04/13/24 21:00 Active 40 mg PO EVERY OTHER DAY@2100 Vancomycin/Water For Inj (Peg) [Vancomycin 750 mg/150 Meds 04/13/24 21:00 Active ml Bag] 750 mg in 150 ml IV Q12HR Verapamil HCl [Cal[place] Sr] Meds 04/13/24 13:20 Active 240 mg PO DAILY
[2024-04-13] MEDS: LASIX IVP SCH (15:28)
[2024-04-13 15:52] LABS: BILIRUBIN,URINE 1+ (NEGATIVE); CLARITY,URINE Turbid (CLEAR); COLOR,URINE Dark (YELLOW); GLUCOSE, URINE (UA) 2+ (NEGATIVE); KETONES,URINE 2+ (NEGATIVE); LEUKOCYTE ESTERASE ,URINE Negative (NEGATIVE); NITRITE,URINE Positive (NEGATIVE); PH,URINE 5.5 (5-9); PROTEIN,URINE 3+ (NEGATIVE); URINE, BLOOD Negative (NEGATIVE)
[2024-04-13 15:58] LABS: AMORPHOUS SEDIMENT,UR TRACE (NOT PRESENT); BACTERIA,URINE 3+ (NOT PRESENT); MUCUS,URINE 1+ (NOT PRESENT); SQUAMOUS EPITHELIAL CELL,UR 0-2 (0-5); TRIPLE PHOSPHATE CRYSTAL,UR TRACE (NOT PRESENT); URINE WBC, MICROSCOPIC 0-2 (0-2)
[2024-04-13] MEDS: ROBAXIN PO SCH (17:26)
[2024-04-13] MEDS: SOLU-MEDROL 40 MG IVP SCH (17:26)
[2024-04-13] MEDS: NEURONTIN PO SCH (20:20)
[2024-04-13] MEDS: MAXIPIME 2 GM/50 ML D5W 2 GM/50 ML BAG IV SCH (20:20)
[2024-04-13] MEDS: ZOCOR PO SCH (20:20)
[2024-04-13] MEDS: VANCOMYCIN 750 MG/150 ML BAG 750 MG/150 ML BAG IV SCH (21:16)
[2024-04-14 05:25] LABS: HEMATOCRIT 34.7 % (37.0-47.0); MEAN CORPUSCULAR HEMOGLOBIN 27.6 pg (27.0-31.0); MEAN CORPUSCULAR HGB CONC 31.7 (31.8-35.4); MEAN CORPUSCULAR VOLUME 87.2 fl (81.0-99.0); PLATELET COUNT 403 10^3/uL (140-440); RDW COEFFICIENT OF VARIATION 13.4 % (11.6-14.8); RED BLOOD COUNT 3.98 10^6/ul (4.20-5.40); WHITE BLOOD COUNT 14.48 K/ul (4.6-10.2)
[2024-04-14 05:33] LABS: ANISOCYTOSIS NOT PRESENT (NOT PRESENT)
[2024-04-14 05:40] LABS: ALANINE AMINOTRANSFERASE 26.4 U/L (0-35); ALBUMIN 3.29 g/dL (3.5-5.0); ALKALINE PHOSPHATASE 118.3 U/L (53-141); ASPARTATE AMINO TRANSFERASE 71.3 U/L (14-36); BILIRUBIN,TOTAL 0.54 mg/dL (0.2-1.3); BLOOD UREA NITROGEN 36.8 mg/dL (7-17); CALCIUM 9.4 mg/dL (8.4-10.2); CARBON DIOXIDE 28.4 mmol/L (22-30.0); CHLORIDE 95.8 mmol/L (98-107); CREATININE 1.08 mg/dL (0.60-1.30); GLUCOSE 460.9 mg/dL (74-106); POTASSIUM 3.28 mmol/L (3.5-5.1); SODIUM 135.1 mmol/L (134.5-145); TOTAL PROTEIN 7.02 g/dL (6.3-8.2)
[2024-04-14] MEDS: SOLU-MEDROL 40 MG IVP SCH (08:24)
[2024-04-14] MEDS: COZAAR PO SCH (08:24)
[2024-04-14] MEDS: MICRO-K CAP PO SCH (08:25)
[2024-04-14] MEDS: LOVENOX SUBCUT SCH (08:26)
[2024-04-14] MEDS: CLARITIN PO SCH (08:26)
[2024-04-14] MEDS: LANTUS SUBCUT SCH (08:26)
[2024-04-14] MEDS: K-DUR PO ONE (08:56)
--- NOTE | 2024-04-14 11:53 | PCM.PROG ---
Date/Time Seen Date Seen by Provider: 04/14/24 Time Seen by Provider: 08:45 Provider [facility] Chief Complaint Chief Complaint: SEVERE SEPSIS, PNEUMONIA, FLU A Subjective Subjective: "Still feel like shit" maybe some better this am conversational, grandson and at bedside Objective Appearance: Positive No Apparent Distress and Alert and Oriented x3 Chest/Lungs: Positive Symmetrical With Equal Breath Sounds, Rhonci and Good Air Movement all 4 Lung [place] Heart: Positive RRR and Pulses Normal GI/: Positive Soft, Nontender, Bowel Sounds Normal and No Distention Musculoskeletal: Positive Not Examined Neurological: Positive Sensation Intact, Motor intact, Alert and Oriented Vital Signs Vital Signs: Vital Signs: Last 24 Hours 04/13/24 13:00 04/13/24 14:00 04/13/24 14:00 Temperature 96.5 F L Temperature Source Temporal Artery Scan Pulse Rate 107 H Respiratory Rate Blood Pressure 131/80 Blood Pressure Mean 97 Blood Pressure Location Left Arm Blood Pressure Position Sitting O2 Sat by Pulse Oximetry 91 L Oxygen Delivery Method Nasal Cannula Nasal Cannula Oxygen Flow Rate Telemetry Type Remote Telemetry Telemetry Monitoring Continues Irregular Telemetry Rate (Approximate) 100-110 BPM Telemetry Heart Rate 114 H EKG NC Interval 0.13 EKG QRS Interval 0.[address] 04/13/24 14:01 04/13/24 15:00 04/13/24 15:00 Temperature Temperature Source Pulse Rate Respiratory Rate Blood Pressure Blood Pressure Mean Blood Pressure Location Blood Pressure Position O2 Sat by Pulse Oximetry 93 L Oxygen Delivery Method Nasal Cannula Nasal Cannula Nasal Cannula Oxygen Flow Rate 2 Telemetry Type Telemetry Monitoring Irregular Telemetry Rate (Approximate) Telemetry Heart Rate EKG NC Interval EKG QRS Interval Telemetry Strip Reading 04/13/24 15:30 04/13/24 17:00 04/13/24 17:32 Temperature Temperature Source Pulse Rate Respiratory Rate Blood Pressure Blood Pressure Mean Blood Pressure Location Blood Pressure Position O2 Sat by Pulse Oximetry Oxygen Delivery Method Nasal Cannula Nasal Cannula Nasal Cannula Oxygen Flow Rate Telemetry Type Telemetry Monitoring Irregular Telemetry Rate (Approximate) Telemetry Heart Rate EKG NC Interval EKG QRS Interval Telemetry Strip Reading 04/13/24 18:00 04/13/24 19:00 04/13/24 19:00 Temperature 96.2 F L Temperature Source Temporal Artery Scan Pulse Rate 88 Respiratory Rate 18 Blood Pressure 108/72 Blood Pressure Mean 84 Blood Pressure Location Left Arm Blood Pressure Position Sitting O2 Sat by Pulse Oximetry 91 L Oxygen Delivery Method Nasal Cannula Nasal Cannula Oxygen Flow Rate Telemetry Type Remote Telemetry Telemetry Monitoring Continues Irregular Telemetry Rate (Approximate) Telemetry Heart Rate 86 EKG NC Interval 0.15 EKG QRS Interval 0.08 Telemetry Strip Reading SR 04/13/24 20:00 04/13/24 20:00 04/13/24 20:46 Temperature 97 F L Temperature Source Temporal Artery Scan Pulse Rate 86 Respiratory Rate 20 Blood Pressure 119/69 Blood Pressure Mean 85 Blood Pressure Location Left Arm Blood Pressure Position Supine O2 Sat by Pulse Oximetry 90 L 92 L Oxygen Delivery Method Nasal Cannula Nasal Cannula Nasal Cannula Oxygen Flow Rate 2 2 Telemetry Type Telemetry Monitoring Irregular Telemetry Rate (Approximate) Telemetry Heart Rate EKG NC Interval EKG QRS Interval Telemetry Strip Reading 04/13/24 21:00 04/13/24 21:10 04/13/24 22:00 Temperature Temperature Source Pulse Rate Respiratory Rate Blood Pressure Blood Pressure Mean Blood Pressure Location Blood Pressure Position O2 Sat by Pulse Oximetry Oxygen Delivery Method Nasal Cannula Nasal Cannula Nasal Cannula Oxygen Flow Rate 2 Telemetry Type Telemetry Monitoring Irregular Telemetry Rate (Approximate) Telemetry Heart Rate EKG NC Interval EKG QRS Interval Telemetry Strip Reading 04/13/24 23:00 04/13/24 23:56 04/14/24 01:00 Temperature Temperature Source Pulse Rate Respiratory Rate Blood Pressure Blood Pressure Mean Blood Pressure Location Blood Pressure Position O2 Sat by Pulse Oximetry Oxygen Delivery Method Nasal Cannula Nasal Cannula Nasal Cannula Oxygen Flow Rate Telemetry Type Telemetry Monitoring Irregular Telemetry Rate (Approximate) Telemetry Heart Rate EKG NC Interval EKG QRS Interval Telemetry Strip Reading 04/14/24 01:00 04/14/24 02:00 04/14/24 02:00 Temperature 98 F Temperature Source Temporal Artery Scan Pulse Rate 79 Respiratory Rate 21 H Blood Pressure 121/65 Blood Pressure Mean 83 Blood Pressure Location Left Arm Blood Pressure Position Supine O2 Sat by Pulse Oximetry 92 L Oxygen Delivery Method Nasal Cannula Nasal Cannula Oxygen Flow Rate 2 Telemetry Type Remote Telemetry Telemetry Monitoring Continues Irregular Telemetry Rate (Approximate) Telemetry Heart Rate 74 EKG NC Interval 0.14 EKG QRS Interval 0.09 Telemetry Strip Reading SR 04/14/24 03:00 04/14/24 04:00 04/14/24 05:00 Temperature Temperature Source Pulse Rate Respiratory Rate Blood Pressure Blood Pressure Mean Blood Pressure Location Blood Pressure Position O2 Sat by Pulse Oximetry Oxygen Delivery Method Nasal Cannula Nasal Cannula Nasal Cannula Oxygen Flow Rate Telemetry Type Telemetry Monitoring Irregular Telemetry Rate (Approximate) Telemetry Heart Rate EKG NC Interval EKG QRS Interval Telemetry Strip Reading 04/14/24 05:17 04/14/24 05:48 04/14/24 05:56 Temperature 97 F L Temperature Source Temporal Artery Scan Pulse Rate 72 Respiratory Rate 20 Blood Pressure 143/76 H Blood Pressure Mean 98 Blood Pressure Location Left Arm Blood Pressure Position Supine O2 Sat by Pulse Oximetry 92 L 91 L Oxygen Delivery Method Nasal Cannula Nasal Cannula Nasal Cannula Oxygen Flow Rate 2 2 Telemetry Type Telemetry Monitoring Irregular Telemetry Rate (Approximate) Telemetry Heart Rate EKG NC Interval EKG QRS Interval Telemetry Strip Reading 04/14/24 07:00 04/14/24 07:00 04/14/24 08:00 Temperature Temperature Source Pulse Rate Respiratory Rate Blood Pressure Blood Pressure Mean Blood Pressure Location Blood Pressure Position O2 Sat by Pulse Oximetry Oxygen Delivery Method Nasal Cannula Nasal Cannula Oxygen Flow Rate Telemetry Type Remote Telemetry Telemetry Monitoring Continues Irregular Telemetry Rate (Approximate) Telemetry Heart Rate 81 EKG NC Interval 0.18 EKG QRS Interval 0.08 Telemetry Strip Reading NSR 04/14/24 09:00 04/14/24 10:00 04/14/24 10:00 Temperature 97.1 F L Temperature Source Temporal Artery Scan Pulse Rate 83 Respiratory Rate 18 Blood Pressure 113/55 L Blood Pressure Mean 74 Blood Pressure Location Right Arm Blood Pressure Position O2 Sat by Pulse Oximetry 94 L Oxygen Delivery Method Nasal Cannula Nasal Cannula Nasal Cannula Oxygen Flow Rate Telemetry Type Telemetry Monitoring Irregular Telemetry Rate (Approximate) Telemetry Heart Rate EKG NC Interval EKG QRS Interval Telemetry Strip Reading 04/14/24 10:00 04/14/24 11:00 Temperature Temperature Source Pulse Rate Respiratory Rate Blood Pressure Blood Pressure Mean Blood Pressure Location Blood Pressure Position O2 Sat by Pulse Oximetry 96 Oxygen Delivery Method Nasal Cannula Nasal Cannula Oxygen Flow Rate 2 Telemetry Type Telemetry Monitoring Irregular Telemetry Rate (Approximate) Telemetry Heart Rate EKG NC Interval EKG QRS Interval Telemetry Strip Reading Lab Results Lab Results: Lab Results: Last 24 Hours 04/14/24 04/14/24 04/13/24 05:19 01:35 20:22 WBC 14.48 H RBC 3.98 L Hgb 11.0 L Hct 34.7 L MCV 87.2 MCH 27.6 MCHC 31.7 L RDW Coeff of Saundra 13.4 Plt Count 403 Neutrophils % (Manual) 78.0 H Band Neutrophils % 10.0 H Lymphocytes % (Manual) 6.0 L Monocytes % (Manual) 4.0 Reactive Lymphocytes 2.0 Anisocytosis Not present Sodium 135.1 Potassium 3.28 L Chloride 95.8 L Carbon Dioxide 28.4 Anion Gap 14.18 BUN 36.8 H Creatinine 1.08 Estimated GFR (MDRD) 50.00 BUN/Creatinine Ratio 34.07 Glucose 460.9 H 443.7 H D 551.7 H* D Calcium 9.40 Total Bilirubin 0.54 AST 71.3 H ALT 26.4 Alkaline Phosphatase 118.3 D Total Protein 7.02 Albumin 3.29 L Globulin 3.73 Albumin/Globulin Ratio 0.88 Procalcitonin 6.54 H Urine Color Urine Clarity Urine pH Ur Specific Beals Urine Protein Urine Glucose (UA) Urine Ketones Urine Blood Urine Nitrite Urine Bilirubin Urine Urobilinogen Ur Leukocyte Esterase Urine Microscopic WBC Ur Squamous Epith Cells Triple Phos Crystals Amorphous Sediment Urine Bacteria Granular Casts Urine Mucus 04/13/24 04/13/24 15:28 09:29 WBC RBC Hgb Hct MCV MCH MCHC RDW Coeff of Saundra Plt Count Neutrophils % (Manual) Band Neutrophils % Lymphocytes % (Manual) Monocytes % (Manual) Reactive Lymphocytes Anisocytosis Sodium Potassium Chloride Carbon Dioxide Anion Gap BUN Creatinine Estimated GFR (MDRD) BUN/Creatinine Ratio Glucose Calcium Total Bilirubin AST ALT Alkaline Phosphatase Total Protein Albumin Globulin Albumin/Globulin Ratio Procalcitonin 5.21 H Urine Color Dark Urine Clarity Turbid Urine pH 5.5 Ur Specific Beals >=1.030 Urine Protein 3+ H Urine Glucose (UA) 2+ H Urine Ketones 2+ H Urine Blood Negative Urine Nitrite Positive H Urine Bilirubin 1+ H Urine Urobilinogen 2.0 H Ur Leukocyte Esterase Negative Urine Microscopic WBC 0-2 Ur Squamous Epith Cells 0-2 Triple Phos Crystals Trace Amorphous Sediment Trace Urine Bacteria 3+ Granular Casts 5-10 Urine Mucus 1+ Additional Comments Additional Comments: I have independently reviewed and interpreted the labs/EKGs/imaging ordered du ring this hospital stay. I have reviewed outside records that are available in our EMR that pertain to medical stay including imaging/notes/labs from previous visits. Active Medications Active Medications: Medications Generic Name Dose Route Start Last Admin Trade Name Freq PRN Reason Stop Dose Admin Acetaminophen 650 mg 04/13/24 11:22 Acetaminophen 325 Mg Tablet PO Q4H PRN Mild Pain Hydrocodone Bitart/Acetaminophen 1 tab 04/13/24 13:18 Hydrocodone Bit/Acetaminophen 7.5/325 Mg Tablet PO TID PRN Pain Albuterol/Ipratropium 3 ml 04/13/24 14:00 04/14/24 09:54 Ipratropium/Albuterol Vial.Neb NEB 3 ml RTQ4H REMIGIO Administration Alprazolam 0.25 mg 04/13/24 13:18 Alprazolam 0.25 Mg Tablet PO BID PRN Anxiety Aspirin 81 mg 04/13/24 13:30 04/14/24 08:25 Aspirin 81 Mg Tab.Chew PO 81 mg DAILYWM2 REMIGIO Administration Enoxaparin Sodium 40 mg 04/14/24 09:00 04/14/24 08:26 Enoxaparin Sodium 40 Mg/0.4 Ml Syr SUBCUT 40 mg DAILY REMIGIO Administration Furosemide 20 mg 04/13/24 15:00 04/14/24 06:18 Furosemide Inj 20 Mg/2 Ml Vial IVP 20 mg BIDAC2 REMIGIO Administration Gabapentin 200 mg 04/13/24 21:00 04/14/24 08:25 Gabapentin 100 Mg Capsule PO 200 mg BID REMIGIO Administration CEFEPIME 2 GM/D5W 2 gm in 50 mls @ 100 mls/hr 04/13/24 21:00 04/14/24 05:12 Maxipime 2 Gm/50 Ml D5w IV 04/16/24 20:59 100 mls/hr Q8HR REMIGIO Administration VANCOMYCIN/WATER FOR INJ (PEG) 750 mg in 150 mls @ 150 mls/hr 04/13/24 21:00 04/14/24 08:55 Vancomycin 750 Mg/150 Ml Bag IV 04/16/24 20:59 150 mls/hr Q12HR REMIGIO Administration Insulin Glargine 15 unit 04/14/24 09:00 04/14/24 08:26 Insulin Glargine,Hum.Rec.Anlog 100 Units/Ml SUBCUT 15 unit DAILY REMIGIO Administration Insulin Human Regular 0 unit 04/14/24 10:23 Insulin Regular, Human 100 Unit/Ml (10ml) Vial SUBCUT PRN PRN Hyperglycemia Protocol Lisinopril 20 mg 04/13/24 13:30 04/14/24 08:25 Lisinopril 10 Mg Tablet PO 20 mg DAILY REMIGIO Administration Loratadine 10 mg 04/14/24 09:00 04/14/24 08:26 Loratadine 10 Mg Tablet PO 10 mg DAILY REMIGIO Administration Losartan Potassium 100 mg 04/14/24 09:00 04/14/24 08:24 Losartan Potassium 100 Mg Tablet PO 100 mg DAILY REMIGIO Administration Methocarbamol 750 mg 04/13/24 18:00 04/14/24 05:12 Methocarbamol 500 Mg Tablet PO 750 mg Q6HR REMIGIO Administration Methylprednisolone Sodium Succinate 40 mg 04/14/24 09:00 04/14/24 08:24 Methylprednisolone Sod Succ/Pf 40 Mg/Ml Vial IVP 40 mg DAILY REMIGIO Administration Potassium Chloride 10 meq 04/14/24 07:30 04/14/24 08:25 Potassium Chloride 10 Meq Capsule.Er PO 10 meq DAILYWM2 REMIGIO Administration Simvastatin 40 mg 04/13/24 21:00 04/13/24 20:20 Simvastatin 40 Mg Tablet PO 40 mg EVERY OTHER DAY@2100 REMIGIO Administration Verapamil HCl 240 mg 04/13/24 13:20 04/14/24 08:24 Verapamil Hcl 120 Mg Tablet.Er PO 240 mg DAILY REMIGIO Administration Plan Plan: 1. Acute Hypoxic Respiratory Failure in setting of Influenza A, Possible right CAP, and Pleural Effusion - wean oxygen as tolerated, nebs, steroids 2. Sepsis in setting of possible right CAP - blood cultures negative x 24 hours, given zosyn and merrem in ER, switched to cefepime and vanc for gram + and - coverage, procal 6 today - trend and monitor, appears mildly hypervolemic due to cardiomyopathy, no IV fluids given 3. Possible R CAP - procal 6 today, cefepime and vanc, steroids, nebs, mrsa, strep pneumo, legionella pending, sputum culture ordered - not producing yet at this time 4. Influenza A - onset likely 1 week ago, out of window for Tamiflu, conservative measures, isolation 5. Dilated Cardiomyopathy - new pleural effusion on x-ray compared to 01/24, last echo 01/2019 with EF 54%, echo completed and no change - awaiting final report, gentle diuresis lasix 20 mg Q12H for now, daily weight, I&O 6. HTN - chronic, continue home medications 7. DM2 - chronic, accuchecks qid with ssi, continue home lantus, hold oral meds 8. UTI - UA suspect, culture pending, covered with cefepime DVT Prophylaxis: Lovenox Review Statement Review Statement: I have personally discussed and reviewed the patient's visit/currently labs/imaging/decision making with Dr. Oconnell, my supervising attending. Greater that 50 minutes spent with patient, 50% of the time spent with this patient was devoted to counseling and coordination of care.
--- NOTE | 2024-04-14 12:36 | ECHO2D ---
Date of Exam: 04/14/2024 Room #: 116 Ordering Physician: IMAN CORTEZ APRN (HOSPITALIST); DR. OBRIEN (PRIMARY CARE PHYSICIAN) Reason for Echo: NEW PLEURAL EFFUSION, SHORTNESS OF BREATH M-Mode Normal Adult Results LV Dimensions Normal Adult Results AoV Opening excursions >1.6 >1.6 LVEDD-base- 3.5-5.8 5.0 Ao root dimensions 2.0-3.7 3.2 LVESD-base- 3.1-4.6 L. Atrium dimensions 1.9-3.8 4.5 Post. Wall thickness 0.8-1.1 1.3 IV septum (thickness) 0.7-1.2 1.4 Post. Wall excursion 0.72-1.3 NORMAL Septal motion NORMAL Systolic motion R. Ventricular cavity 1.5-2.0 NORMAL LVEF 60% 66% Paradoxical septal wall motion NORMAL 2-D : 2-D M Mode Echocardiogram was performed using apical four chamber and left parasternal long and short axis views. Mitral, tricuspid and aortic valves appear to be normal. Contractility of the left ventricle seems to be normal, so is the cavity size. ENLARGED LEFT ATRIAL CAVITY. Aortic root appears to be normal. There is no pericardial effusion. There is no thrombus noted in the left ventricle or left atrial cavity. M-MODE: MV: NORMAL AV: NORMAL TV: NORMAL PV: NORMAL CHAMBER SIZE: ENLARGED LEFT ATRIAL CAVITY WALL MOTION: NORMAL PERICARDIUM: NORMAL INTERPRETATION: 1. LEFT VENTRICULAR HYPERTROPHY WITH ENLARGED LEFT ATRIAL CAVITY. 2. NORMAL LEFT VENTRICLE SIZE AND LEFT VENTRICULAR CONTRACTILITY. 3. ALL VALVES NORMAL. MTDD
[2024-04-14] MEDS: HUMULIN R (10ML) SUBCUT ONE (13:44)
[2024-04-14] MEDS: HUMULIN R (10ML) SUBCUT STA (17:45)
[2024-04-14] MEDS: HUMULIN R (10ML) SUBCUT PRN (19:08)
[2024-04-14] MEDS: HUMULIN R (10ML) IVP STA ×2 (20:44→22:06)
[2024-04-15] MEDS: LANTUS SUBCUT ONE (00:17)
[2024-04-15] MEDS: TYLENOL PO PRN (03:18)
[2024-04-15] MEDS: HUMULIN R (10ML) IVP STA (03:34)
[2024-04-15 05:42] LABS: HEMATOCRIT 32.2 % (37.0-47.0); HEMOGLOBIN 10.3 g/dl (12.0-16.0); MEAN CORPUSCULAR HEMOGLOBIN 27.9 pg (27.0-31.0); MEAN CORPUSCULAR VOLUME 87.3 fl (81.0-99.0); PLATELET COUNT 459 10^3/uL (140-440); RDW COEFFICIENT OF VARIATION 13.5 % (11.6-14.8); RED BLOOD COUNT 3.69 10^6/ul (4.20-5.40); WHITE BLOOD COUNT 16.63 K/ul (4.6-10.2)
[2024-04-15 05:50] LABS: ANISOCYTOSIS NOT PRESENT (NOT PRESENT)
[2024-04-15 06:02] LABS: ALANINE AMINOTRANSFERASE 44.6 U/L (0-35); ALBUMIN 3.06 g/dL (3.5-5.0); ALKALINE PHOSPHATASE 108.6 U/L (53-141); ASPARTATE AMINO TRANSFERASE 86.8 U/L (14-36); BILIRUBIN,TOTAL 0.44 mg/dL (0.2-1.3); BLOOD UREA NITROGEN 44.1 mg/dL (7-17); CALCIUM 9.34 mg/dL (8.4-10.2); CARBON DIOXIDE 25.4 mmol/L (22-30.0); CHLORIDE 98.3 mmol/L (98-107); CREATININE 1.05 mg/dL (0.60-1.30); POTASSIUM 3.4 mmol/L (3.5-5.1); SODIUM 133.7 mmol/L (134.5-145); TOTAL PROTEIN 6.44 g/dL (6.3-8.2)
[2024-04-15 06:03] LABS: GLUCOSE 440.4 mg/dL (74-106)
[2024-04-15] MEDS: HUMULIN R (10ML) SUBCUT PRN (06:14)
[2024-04-15] MEDS: HUMULIN R (10ML) IVP ONE (08:15)
[2024-04-15] MEDS: LANTUS SUBCUT SCH (08:15)
[2024-04-15] MEDS: K-DUR PO ONE (09:10)
[2024-04-15] MEDS: DOXYCYCLINE HYCLATE PO SCH (11:23)
[2024-04-15] MEDS: GLUCOPHAGE PO SCH (11:24)
--- NOTE | 2024-04-15 11:31 | PCM.PROG ---
Date/Time Seen Date Seen by Provider: 04/15/24 Time Seen by Provider: 09:30 Provider Provider: MARCUS FARRELL, [facility] Chief Complaint Chief Complaint: SEVERE SEPSIS, PNEUMONIA, FLU A Subjective Subjective: Feeling better today. Still has dry cough. Blood glucose >500 majority of evening yesterday and overnight. States she was initially on Ozempic 4 months ago and brought her A1c down to 7. Insurance stopped paying for it and she hasn't been able to afford it. A1c now 10.7. States she has 3 glucometers at home but none of them work. Objective Appearance: Positive No Apparent Distress, Alert and Oriented x3 and Obese Chest/Lungs: Positive Symmetrical With Equal Breath Sounds and Clear to Auscultation Bilaterally (diminished) Heart: Positive RRR and Pulses Normal GI/: Positive Soft, Nontender, Bowel Sounds Normal and No Distention Musculoskeletal: Positive Normal Gait and Station Neurological: Positive Sensation Intact, Motor intact, Alert, Oriented and Other (generalized weakness) Vital Signs Vital Signs: Vital Signs: Last 24 Hours 04/14/24 12:00 04/14/24 13:00 04/14/24 13:00 Temperature Temperature Source Pulse Rate Respiratory Rate Blood Pressure Blood Pressure Mean Blood Pressure Location Blood Pressure Position O2 Sat by Pulse Oximetry Oxygen Delivery Method Nasal Cannula Nasal Cannula Oxygen Flow Rate Height Weight Telemetry Type Remote Telemetry Telemetry Monitoring Continues Telemetry Heart Rate 80 EKG IA Interval 0.15 EKG QRS Interval 0.09 Telemetry Strip Reading NSR 04/14/24 14:00 04/14/24 14:00 04/14/24 14:00 Temperature 97.1 F L Temperature Source Temporal Artery Scan Pulse Rate 87 Respiratory Rate 19 Blood Pressure 113/55 L Blood Pressure Mean 74 Blood Pressure Location Right Arm Blood Pressure Position O2 Sat by Pulse Oximetry 96 92 L Oxygen Delivery Method Nasal Cannula Nasal Cannula Room Air Oxygen Flow Rate 2 Height Weight Telemetry Type Telemetry Monitoring Telemetry Heart Rate EKG IA Interval EKG QRS Interval Telemetry Strip Reading 04/14/24 15:00 04/14/24 16:00 04/14/24 17:00 Temperature Temperature Source Pulse Rate Respiratory Rate Blood Pressure Blood Pressure Mean Blood Pressure Location Blood Pressure Position O2 Sat by Pulse Oximetry Oxygen Delivery Method Nasal Cannula Nasal Cannula Nasal Cannula Oxygen Flow Rate Height Weight Telemetry Type Telemetry Monitoring Telemetry Heart Rate EKG IA Interval EKG QRS Interval Telemetry Strip Reading 04/14/24 17:19 04/14/24 17:54 04/14/24 17:54 Temperature 96.6 F L Temperature Source Temporal Artery Scan Pulse Rate 93 Respiratory Rate 21 H Blood Pressure 141/66 H Blood Pressure Mean 91 Blood Pressure Location Left Arm Blood Pressure Position O2 Sat by Pulse Oximetry 96 95 Oxygen Delivery Method Nasal Cannula Nasal Cannula Nasal Cannula Oxygen Flow Rate 2 Height Weight Telemetry Type Telemetry Monitoring Telemetry Heart Rate EKG IA Interval EKG QRS Interval Telemetry Strip Reading 04/14/24 19:00 04/14/24 19:00 04/14/24 19:59 Temperature Temperature Source Pulse Rate Respiratory Rate Blood Pressure Blood Pressure Mean Blood Pressure Location Blood Pressure Position O2 Sat by Pulse Oximetry Oxygen Delivery Method Nasal Cannula Nasal Cannula Oxygen Flow Rate Height Weight Telemetry Type Remote Telemetry Telemetry Monitoring Continues Telemetry Heart Rate 88 EKG IA Interval 0.14 EKG QRS Interval 0.10 Telemetry Strip Reading SR 04/14/24 20:00 04/14/24 20:00 04/14/24 21:00 Temperature Temperature Source Pulse Rate Respiratory Rate Blood Pressure Blood Pressure Mean Blood Pressure Location Blood Pressure Position O2 Sat by Pulse Oximetry 91 L Oxygen Delivery Method Nasal Cannula Nasal Cannula Nasal Cannula Oxygen Flow Rate 2 1 Height Weight Telemetry Type Telemetry Monitoring Telemetry Heart Rate EKG IA Interval EKG QRS Interval Telemetry Strip Reading 04/14/24 21:46 04/14/24 21:54 04/14/24 23:00 Temperature 98.6 F Temperature Source Temporal Artery Scan Pulse Rate 74 Respiratory Rate 19 Blood Pressure 118/69 Blood Pressure Mean 85 Blood Pressure Location Left Arm Blood Pressure Position Supine O2 Sat by Pulse Oximetry 90 L Oxygen Delivery Method Nasal Cannula Nasal Cannula Nasal Cannula Oxygen Flow Rate 2 Height Weight Telemetry Type Telemetry Monitoring Telemetry Heart Rate EKG IA Interval EKG QRS Interval Telemetry Strip Reading 04/15/24 00:00 04/15/24 01:00 04/15/24 01:00 Temperature Temperature Source Pulse Rate Respiratory Rate Blood Pressure Blood Pressure Mean Blood Pressure Location Blood Pressure Position O2 Sat by Pulse Oximetry Oxygen Delivery Method Nasal Cannula Nasal Cannula Oxygen Flow Rate Height Weight Telemetry Type Remote Telemetry Telemetry Monitoring Continues Telemetry Heart Rate 74 EKG IA Interval 0.14 EKG QRS Interval 0.09 Telemetry Strip Reading SR 04/15/24 02:00 04/15/24 02:00 04/15/24 03:00 Temperature 96.2 F L Temperature Source Temporal Artery Scan Pulse Rate 75 Respiratory Rate 20 Blood Pressure 102/69 Blood Pressure Mean 80 Blood Pressure Location Left Arm Blood Pressure Position Supine O2 Sat by Pulse Oximetry 94 L Oxygen Delivery Method Nasal Cannula Nasal Cannula Nasal Cannula Oxygen Flow Rate 2 Height Weight Telemetry Type Telemetry Monitoring Telemetry Heart Rate EKG IA Interval EKG QRS Interval Telemetry Strip Reading 04/15/24 04:00 04/15/24 05:00 04/15/24 05:21 Temperature Temperature Source Pulse Rate Respiratory Rate Blood Pressure Blood Pressure Mean Blood Pressure Location Blood Pressure Position O2 Sat by Pulse Oximetry 91 L Oxygen Delivery Method Nasal Cannula Nasal Cannula Nasal Cannula Oxygen Flow Rate 2 Height Weight Telemetry Type Telemetry Monitoring Telemetry Heart Rate EKG IA Interval EKG QRS Interval Telemetry Strip Reading 04/15/24 05:27 04/15/24 06:00 04/15/24 07:00 Temperature 96.2 F L Temperature Source Temporal Artery Scan Pulse Rate 82 Respiratory Rate 20 Blood Pressure 146/84 H Blood Pressure Mean 104 Blood Pressure Location Left Arm Blood Pressure Position Supine O2 Sat by Pulse Oximetry 91 L Oxygen Delivery Method Nasal Cannula Nasal Cannula Oxygen Flow Rate 2 Height Weight Telemetry Type Remote Telemetry Telemetry Monitoring Continues Telemetry Heart Rate 78 EKG IA Interval 0.18 EKG QRS Interval 0.09 Telemetry Strip Reading NSR 04/15/24 08:00 04/15/24 10:00 04/15/24 10:00 Temperature 97.8 F Temperature Source Temporal Artery Scan Pulse Rate 83 Respiratory Rate 20 Blood Pressure 129/67 Blood Pressure Mean 87 Blood Pressure Location Left Arm Blood Pressure Position Supine O2 Sat by Pulse Oximetry 95 91 L Oxygen Delivery Method Nasal Cannula Nasal Cannula Nasal Cannula Oxygen Flow Rate 2 1 2 Height Weight Telemetry Type Telemetry Monitoring Telemetry Heart Rate EKG IA Interval EKG QRS Interval Telemetry Strip Reading 04/15/24 10:04 Temperature Temperature Source Pulse Rate Respiratory Rate Blood Pressure Blood Pressure Mean Blood Pressure Location Blood Pressure Position O2 Sat by Pulse Oximetry Oxygen Delivery Method Oxygen Flow Rate Height 5 ft 5 in Weight 105.3 kg Telemetry Type Telemetry Monitoring Telemetry Heart Rate EKG IA Interval EKG QRS Interval Telemetry Strip Reading Lab Results Lab Results: Lab Results: Last 24 Hours 04/15/24 04/15/24 04/15/24 08:43 05:10 02:20 WBC 16.63 H RBC 3.69 L Hgb 10.3 L Hct 32.2 L MCV 87.3 MCH 27.9 MCHC 32.0 RDW Coeff of Saundra 13.5 Plt Count 459 H Neutrophils % (Manual) 85.0 H Band Neutrophils % 4.0 Lymphocytes % (Manual) 6.0 L Monocytes % (Manual) 2.0 Metamyelocytes % 1.0 Reactive Lymphocytes 2.0 Anisocytosis Not present Sodium 133.7 L Potassium 3.40 L Chloride 98.3 Carbon Dioxide 25.4 Anion Gap 13.40 BUN 44.1 H Creatinine 1.05 Estimated GFR (MDRD) 52.00 BUN/Creatinine Ratio 42.00 Glucose 440.4 H D 519.2 H* D Hemoglobin A1c 10.77 H Calcium 9.34 Total Bilirubin 0.44 AST 86.8 H ALT 44.6 H Alkaline Phosphatase 108.6 Total Protein 6.44 Albumin 3.06 L Globulin 3.38 Albumin/Globulin Ratio 0.90 Procalcitonin 4.13 H Vancomycin Trough 9.471 L 04/14/24 04/14/24 04/14/24 20:07 17:03 11:43 WBC RBC Hgb Hct MCV MCH MCHC RDW Coeff of Saundra Plt Count Neutrophils % (Manual) Band Neutrophils % Lymphocytes % (Manual) Monocytes % (Manual) Metamyelocytes % Reactive Lymphocytes Anisocytosis Sodium Potassium Chloride Carbon Dioxide Anion Gap BUN Creatinine Estimated GFR (MDRD) BUN/Creatinine Ratio Glucose 631.5 H* D 556.3 H* 594.8 H* D Hemoglobin A1c Calcium Total Bilirubin AST ALT Alkaline Phosphatase Total Protein Albumin Globulin Albumin/Globulin Ratio Procalcitonin Vancomycin Trough Additional Comments Additional Comments: I have independently reviewed and interpreted the labs/EKGs/imaging ordered during this hospital stay. I have reviewed outside records that are available in our EMR that pertain to medical stay including imaging/notes/labs from previous visits. Active Medications Active Medications: Medications Generic Name Dose Route Start Last Admin Trade Name Freq PRN Reason Stop Dose Admin Acetaminophen 650 mg 04/13/24 11:22 04/15/24 03:18 Acetaminophen 325 Mg Tablet PO 650 mg Q4H PRN Administration Mild Pain Hydrocodone Bitart/Acetaminophen 1 tab 04/13/24 13:18 Hydrocodone Bit/Acetaminophen 7.5/325 Mg Tablet PO TID PRN Pain Albuterol/Ipratropium 3 ml 04/13/24 14:00 04/15/24 09:40 Ipratropium/Albuterol Vial.Neb NEB 3 ml RTQ4H REMIGIO Administration Alprazolam 0.25 mg 04/13/24 13:18 Alprazolam 0.25 Mg Tablet PO BID PRN Anxiety Aspirin 81 mg 04/13/24 13:30 04/15/24 08:12 Aspirin 81 Mg Tab.Chew PO 81 mg DAILYWM2 REMIGIO Administration Doxycycline Hyclate 100 mg 04/15/24 11:00 04/15/24 11:23 Doxycycline Hyclate 100 Mg Capsule PO 04/19/24 23:00 100 mg Q12HR REMIGIO Administration Enoxaparin Sodium 40 mg 04/14/24 09:00 04/15/24 08:14 Enoxaparin Sodium 40 Mg/0.4 Ml Syr SUBCUT 40 mg DAILY REMIGIO Administration Furosemide 20 mg 04/16/24 06:00 Furosemide 20 Mg Tablet PO QDAC2 REMIGIO Gabapentin 200 mg 04/13/24 21:00 04/15/24 08:10 Gabapentin 100 Mg Capsule PO 200 mg BID REMIGIO Administration CEFEPIME 2 GM/D5W 2 gm in 50 mls @ 100 mls/hr 04/13/24 21:00 04/15/24 05:28 Maxipime 2 Gm/50 Ml D5w IV 04/16/24 20:59 100 mls/hr Q8HR REMIGIO Administration Insulin Glargine 20 unit 04/15/24 09:00 04/15/24 08:15 Insulin Glargine,Hum.Rec.Anlog 100 Units/Ml SUBCUT 20 unit DAILY REMIGIO Administration Insulin Human Regular 0 unit 04/14/24 20:29 04/15/24 06:14 Insulin Regular, Human 100 Unit/Ml (10ml) Vial SUBCUT 15 unit PRN PRN Administration Hyperglycemia Protocol Lisinopril 20 mg 04/13/24 13:30 04/15/24 08:11 Lisinopril 10 Mg Tablet PO 20 mg DAILY REMIGIO Administration Loratadine 10 mg 04/14/24 09:00 04/15/24 08:22 Loratadine 10 Mg Tablet PO 10 mg DAILY REMIGIO Administration Losartan Potassium 100 mg 04/14/24 09:00 04/15/24 08:10 Losartan Potassium 100 Mg Tablet PO 100 mg DAILY REMIGIO Administration Metformin HCl 1,000 mg 04/15/24 11:05 04/15/24 11:24 Metformin Hcl 500 Mg Tablet PO 1,000 mg BIDWM2 REMIGIO Administration Methocarbamol 750 mg 04/13/24 18:00 04/15/24 11:24 Methocarbamol 500 Mg Tablet PO 750 mg Q6HR REMIGIO Administration Potassium Chloride 10 meq 04/14/24 07:30 04/15/24 08:10 Potassium Chloride 10 Meq Capsule.Er PO 10 meq DAILYWM2 REMIGIO Administration Simvastatin 40 mg 04/13/24 21:00 04/13/24 20:20 Simvastatin 40 Mg Tablet PO 40 mg EVERY OTHER DAY@2100 REMIGIO Administration Sodium Chloride 1 syr 04/14/24 21:00 04/15/24 05:28 0.9% Sodium Chloride 10 Ml Disp.Syrin IVF 1 syr Q8HR REMIGIO Administration Sodium Chloride 1 syr 04/14/24 13:58 04/14/24 17:15 0.9% Sodium Chloride 10 Ml Disp.Syrin IVF 1 syr PRN PRN Administration Maintain IV Patency Verapamil HCl 240 mg 04/13/24 13:20 04/15/24 08:10 Verapamil Hcl 120 Mg Tablet.Er PO 240 mg DAILY REMIGIO Administration Plan Plan: 1. Acute Hypoxic Respiratory Failure in setting of Influenza A, Possible right CAP, and Pleural Effusion - Improving, down to 1L this am, continue to wean oxygen as tolerated, nebs, steroids 2. Sepsis in setting of possible right CAP - blood cultures negative x 48 hours 3. Possible R CAP - procal 6 today, MRSA neg, stop vanc, add doxy for atypical coverage, continue cefepime, steroids, nebs, strep pneumo, legionella pending, sputum culture ordered - not producing yet at this time 4. Influenza A - onset likely 1 week ago, out of window for Tamiflu, conservative measures, isolation 5. Dilated Cardiomyopathy - new pleural effusion on x-ray compared to 01/24, last echo 01/2019 with EF 54%, echo completed - EfF 66%, diuresing well transition to lasix 20 mg PO, daily weight, I&O 6. HTN - chronic, continue home medications 7. DM2 - chronic, uncontrolled, has required multiple doses of insulin, accuchecks qid with aggressive ssi, increase home lantus to 20 units, do not anticipate contrast imaging - resume home metformin to help with glucose stability, 1500 ADA diet 8. UTI - culture negative, ruled out DVT Prophylaxis: Lovenox Review Statement Review Statement: I have personally discussed and reviewed the patient's visit/currently labs/imaging/decision making with Dr. Oconnell, my supervising attending. Greater that 50 minutes spent with patient, 50% of the time spent with this patient was devoted to counseling and coordination of care.
[2024-04-15] MEDS: HUMULIN R (10ML) SUBCUT ONE (11:56)
[2024-04-15] MEDS: DUONEB NEB SCH (12:54)
[2024-04-15 14:16] LABS: SPECIMEN SOURCE Urine (.); STEP PNEUMO ORGANISM ID Not indicated. (.); STREP PNEUMO AG Negative (Negative); STREP PNEUMO BODY FLUID CULT Not indicated. (.)
[2024-04-15] MEDS: NORCO 7.5-325 PO PRN (17:34)
[2024-04-16] MEDS: LASIX TAB PO SCH (05:17)
[2024-04-16 05:40] LABS: HEMATOCRIT 37.1 % (37.0-47.0); HEMOGLOBIN 11.8 g/dl (12.0-16.0); MEAN CORPUSCULAR HEMOGLOBIN 27.8 pg (27.0-31.0); MEAN CORPUSCULAR HGB CONC 31.8 (31.8-35.4); MEAN CORPUSCULAR VOLUME 87.5 fl (81.0-99.0); PLATELET COUNT 501 10^3/uL (140-440); RDW COEFFICIENT OF VARIATION 13.8 % (11.6-14.8); RED BLOOD COUNT 4.24 10^6/ul (4.20-5.40); WHITE BLOOD COUNT 13.05 K/ul (4.6-10.2)
[2024-04-16 05:43] LABS: ANISOCYTOSIS NOT PRESENT (NOT PRESENT)
[2024-04-16 05:55] LABS: ALANINE AMINOTRANSFERASE 60.7 U/L (0-35); ALBUMIN 3.4 g/dL (3.5-5.0); ALKALINE PHOSPHATASE 110.2 U/L (53-141); ASPARTATE AMINO TRANSFERASE 88.4 U/L (14-36); BILIRUBIN,TOTAL 0.54 mg/dL (0.2-1.3); BLOOD UREA NITROGEN 30.9 mg/dL (7-17); CALCIUM 9.61 mg/dL (8.4-10.2); CARBON DIOXIDE 26.7 mmol/L (22-30.0); CHLORIDE 101.8 mmol/L (98-107); CREATININE 0.76 mg/dL (0.60-1.30); GLUCOSE 183.4 mg/dL (74-106); POTASSIUM 3.72 mmol/L (3.5-5.1); SODIUM 138.7 mmol/L (134.5-145); TOTAL PROTEIN 7.58 g/dL (6.3-8.2)
--- NOTE | 2024-04-16 09:37 | PCM.PROG ---
Date/Time Seen Date Seen by Provider: 04/16/24 Time Seen by Provider: 09:15 Provider [facility] Chief Complaint Chief Complaint: SEVERE SEPSIS, PNEUMONIA, FLU A Subjective Subjective: Blood glucose improved. C/o pain to R back. Improves with pain medications. Cough now productive with yellow/blood tinged sputum. Continues to required 1L O2 Objective Appearance: Positive No Apparent Distress and Alert and Oriented x3 Chest/Lungs: Positive Symmetrical With Equal Breath Sounds and Clear to Auscultation Bilaterally Heart: Positive RRR and Pulses Normal GI/: Positive Soft, Nontender, Bowel Sounds Normal and No Distention Musculoskeletal: Positive Not Examined Neurological: Positive Sensation Intact, Motor intact, Alert, Oriented and Other (generalized weakness) Vital Signs Vital Signs: Vital Signs: Last 24 Hours 04/15/24 10:00 04/15/24 10:00 04/15/24 10:04 Temperature 97.8 F Temperature Source Temporal Artery Scan Pulse Rate 83 Respiratory Rate 20 Blood Pressure 129/67 Blood Pressure Mean 87 Blood Pressure Location Left Arm Blood Pressure Position Supine O2 Sat by Pulse Oximetry 95 91 L Oxygen Delivery Method Nasal Cannula Nasal Cannula Oxygen Flow Rate 1 2 Height 5 ft 5 in Weight 105.3 kg Telemetry Type Telemetry Monitoring Telemetry Heart Rate EKG MN Interval EKG QRS Interval Telemetry Strip Reading 04/15/24 12:56 04/15/24 13:53 04/15/24 14:00 Temperature 97.1 F L Temperature Source Temporal Artery Scan Pulse Rate 77 Respiratory Rate 24 H Blood Pressure 101/76 Blood Pressure Mean 84 Blood Pressure Location Left Arm Blood Pressure Position O2 Sat by Pulse Oximetry 90 L 92 L Oxygen Delivery Method Nasal Cannula Nasal Cannula Oxygen Flow Rate 1 2 Height Weight Telemetry Type Remote Telemetry Telemetry Monitoring Continues Telemetry Heart Rate 80 EKG MN Interval 0.14 EKG QRS Interval 0.08 Telemetry Strip Reading NSR 04/15/24 17:47 04/15/24 19:00 04/15/24 20:00 Temperature 97.1 F L Temperature Source Temporal Artery Scan Pulse Rate 95 Respiratory Rate 20 Blood Pressure 156/74 H Blood Pressure Mean 101 Blood Pressure Location Left Arm Blood Pressure Position Sitting O2 Sat by Pulse Oximetry 93 L Oxygen Delivery Method Nasal Cannula Nasal Cannula Oxygen Flow Rate 1 2 Height Weight Telemetry Type Remote Telemetry Telemetry Monitoring Continues Telemetry Heart Rate 87 EKG MN Interval 0.17 EKG QRS Interval 0.06 Telemetry Strip Reading SR 04/15/24 20:00 04/15/24 21:57 04/16/24 01:00 Temperature 97.2 F L Temperature Source Temporal Artery Scan Pulse Rate 85 Respiratory Rate 20 Blood Pressure 113/62 Blood Pressure Mean 79 Blood Pressure Location Left Arm Blood Pressure Position Supine O2 Sat by Pulse Oximetry 92 L 94 L Oxygen Delivery Method Nasal Cannula Nasal Cannula Oxygen Flow Rate 1 1 Height Weight Telemetry Type Remote Telemetry Telemetry Monitoring Continues Telemetry Heart Rate 82 EKG MN Interval 0.16 EKG QRS Interval 0.06 Telemetry Strip Reading SR 04/16/24 01:52 04/16/24 05:28 04/16/24 05:37 Temperature 97.3 F L Temperature Source Temporal Artery Scan Pulse Rate 68 87 Respiratory Rate 16 18 Blood Pressure 124/77 Blood Pressure Mean 92 Blood Pressure Location Right Arm Blood Pressure Position Supine O2 Sat by Pulse Oximetry 95 97 92 L Oxygen Delivery Method Nasal Cannula Nasal Cannula Nasal Cannula Oxygen Flow Rate 1 2 1 Height Weight Telemetry Type Telemetry Monitoring Telemetry Heart Rate EKG MN Interval EKG QRS Interval Telemetry Strip Reading 04/16/24 07:00 04/16/24 08:00 Temperature Temperature Source Pulse Rate Respiratory Rate Blood Pressure Blood Pressure Mean Blood Pressure Location Blood Pressure Position O2 Sat by Pulse Oximetry Oxygen Delivery Method Nasal Cannula Oxygen Flow Rate 2 Height Weight Telemetry Type Remote Telemetry Telemetry Monitoring Continues Telemetry Heart Rate 87 EKG MN Interval 0.20 EKG QRS Interval 0.08 Telemetry Strip Reading SR Lab Results Lab Results: Lab Results: Last 24 Hours 04/16/24 04/13/24 05:23 15:28 WBC 13.05 H RBC 4.24 Hgb 11.8 L Hct 37.1 MCV 87.5 MCH 27.8 MCHC 31.8 RDW Coeff of Saundra 13.8 Plt Count 501 H Neutrophils % (Manual) 70.0 Band Neutrophils % 2.0 Lymphocytes % (Manual) 20.0 Monocytes % (Manual) 4.0 Reactive Lymphocytes 4.0 Anisocytosis Not present Sodium 138.7 Potassium 3.72 Chloride 101.8 Carbon Dioxide 26.7 Anion Gap 13.92 BUN 30.9 H Creatinine 0.76 Estimated GFR (MDRD) 75.00 BUN/Creatinine Ratio 40.65 Glucose 183.4 H Calcium 9.61 Total Bilirubin 0.54 AST 88.4 H ALT 60.7 H Alkaline Phosphatase 110.2 Total Protein 7.58 Albumin 3.40 L Globulin 4.18 Albumin/Globulin Ratio 0.81 Procalcitonin 1.53 H CSF Strep pneumoniae Ag Not indicated. Urine Legionella Ag Negative Staphs Organism ID Not indicated. S. pneumoniae Ag Source Urine S. pneumoniae Ag Intrp Negative Ref Test Please Note Comment Additional Comments Additional Comments: I have independently reviewed and interpreted the labs/EKGs/imaging ordered during this hospital stay. I have reviewed outside records that are available in our EMR that pertain to medical stay including imaging/notes/labs from previous visits. Active Medications Active Medications: Medications Generic Name Dose Route Start Last Admin Trade Name Freq PRN Reason Stop Dose Admin Acetaminophen 650 mg 04/13/24 11:22 04/15/24 03:18 Acetaminophen 325 Mg Tablet PO 650 mg Q4H PRN Administration Mild Pain Hydrocodone Bitart/Acetaminophen 1 tab 04/13/24 13:18 04/15/24 17:34 Hydrocodone Bit/Acetaminophen 7.5/325 Mg Tablet PO 1 tab TID PRN Administration Pain Albuterol/Ipratropium 3 ml 04/15/24 12:00 04/16/24 05:31 Ipratropium/Albuterol Vial.Neb NEB 3 ml RTQ6H REMIGIO Administration Alprazolam 0.25 mg 04/13/24 13:18 Alprazolam 0.25 Mg Tablet PO BID PRN Anxiety Aspirin 81 mg 04/13/24 13:30 04/16/24 08:19 Aspirin 81 Mg Tab.Chew PO 81 mg DAILYWM2 REMIGIO Administration Doxycycline Hyclate 100 mg 04/15/24 11:00 04/16/24 08:17 Doxycycline Hyclate 100 Mg Capsule PO 04/19/24 23:00 100 mg Q12HR REMIGIO Administration Enoxaparin Sodium 40 mg 04/14/24 09:00 04/16/24 08:16 Enoxaparin Sodium 40 Mg/0.4 Ml Syr SUBCUT 40 mg DAILY REMIGIO Administration Furosemide 20 mg 04/16/24 06:00 04/16/24 05:17 Furosemide 20 Mg Tablet PO 20 mg QDAC2 REMIGIO Administration Gabapentin 200 mg 04/13/24 21:00 04/16/24 08:17 Gabapentin 100 Mg Capsule PO 200 mg BID REMIGIO Administration CEFEPIME 2 GM/D5W 2 gm in 50 mls @ 100 mls/hr 04/13/24 21:00 04/16/24 05:17 Maxipime 2 Gm/50 Ml D5w IV 04/16/24 20:59 100 mls/hr Q8HR REMIGIO Administration Insulin Glargine 20 unit 04/15/24 09:00 04/16/24 08:16 Insulin Glargine,Hum.Rec.Anlog 100 Units/Ml SUBCUT 20 unit DAILY REMIGIO Administration Insulin Human Regular 0 unit 04/14/24 20:29 04/16/24 06:04 Insulin Regular, Human 100 Unit/Ml (10ml) Vial SUBCUT 4 unit PRN PRN Administration Hyperglycemia Protocol Lisinopril 20 mg 04/13/24 13:30 04/16/24 08:19 Lisinopril 10 Mg Tablet PO 20 mg DAILY REMIGIO Administration Loratadine 10 mg 04/14/24 09:00 04/16/24 08:19 Loratadine 10 Mg Tablet PO 10 mg DAILY REMIGIO Administration Losartan Potassium 100 mg 04/14/24 09:00 04/16/24 08:18 Losartan Potassium 100 Mg Tablet PO 100 mg DAILY REMIGIO Administration Metformin HCl 1,000 mg 04/15/24 11:05 04/16/24 08:20 Metformin Hcl 500 Mg Tablet PO 1,000 mg BIDWM2 REMIGIO Administration Methocarbamol 750 mg 04/13/24 18:00 04/16/24 05:17 Methocarbamol 500 Mg Tablet PO 750 mg Q6HR REMIGIO Administration Potassium Chloride 10 meq 04/14/24 07:30 04/16/24 08:18 Potassium Chloride 10 Meq Capsule.Er PO 10 meq DAILYWM2 REMIGIO Administration Simvastatin 40 mg 04/13/24 21:00 04/15/24 20:54 Simvastatin 40 Mg Tablet PO 40 mg EVERY OTHER DAY@2100 REMIGIO Administration Sodium Chloride 1 syr 04/14/24 21:00 04/16/24 05:17 0.9% Sodium Chloride 10 Ml Disp.Syrin IVF 1 syr Q8HR REMIGIO Administration Sodium Chloride 1 syr 04/14/24 13:58 04/14/24 17:15 0.9% Sodium Chloride 10 Ml Disp.Syrin IVF 1 syr PRN PRN Administration Maintain IV Patency Verapamil HCl 240 mg 04/13/24 13:20 04/16/24 08:17 Verapamil Hcl 120 Mg Tablet.Er PO 240 mg DAILY REMIGIO Administration Plan Plan: 1. Acute Hypoxic Respiratory Failure in setting of Influenza A, Possible right CAP, and Pleural Effusion - Unchanged, continues to require 1L, continue to wean oxygen as tolerated, nebs, steroids 2. Sepsis in setting of possible right CAP - blood cultures negative x 48 hours 3. Possible R CAP - procal 1.5 today, MRSA neg, stop vanc, cont doxy for atypical coverage, continue cefepime, steroids, nebs, strep pneumo and legionella negative, sputum culture ordered - not producing yet at this time 4. Influenza A - onset likely 1 week ago, out of window for Tamiflu, conservative measures, isolation 5. Dilated Cardiomyopathy - new pleural effusion on x-ray compared to 01/24, last echo 01/2019 with EF 54%, echo completed - EfF 66%, lasix 20 mg PO, daily weight, I&O 6. HTN - chronic, continue home medications 7. DM2 - chronic, uncontrolled, has required multiple doses of insulin, accuchecks qid with aggressive ssi, increase home lantus to 20 units, do not anticipate contrast imaging - resume home metformin to help with glucose stability, 1500 ADA diet 8. UTI - culture negative, ruled out DVT Prophylaxis: Lovenox Review Statement Review Statement: I have personally discussed and reviewed the patient's visit/currently labs/imaging/decision making with Dr. Oconnell, my supervising attending. Greater that 50 minutes spent with patient, 50% of the time spent with this patient was devoted to counseling and coordination of care.
[2024-04-16] MEDS: OMNICEF PO SCH (21:35)
[2024-04-17 05:27] LABS: HEMATOCRIT 35.1 % (37.0-47.0); HEMOGLOBIN 11.1 g/dl (12.0-16.0); MEAN CORPUSCULAR HGB CONC 31.6 (31.8-35.4); MEAN CORPUSCULAR VOLUME 88.4 fl (81.0-99.0); PLATELET COUNT 436 10^3/uL (140-440); RDW COEFFICIENT OF VARIATION 13.8 % (11.6-14.8); RED BLOOD COUNT 3.97 10^6/ul (4.20-5.40); WHITE BLOOD COUNT 10.02 K/ul (4.6-10.2)
[2024-04-17 05:41] LABS: ALANINE AMINOTRANSFERASE 47.9 U/L (0-35); ALBUMIN 3.07 g/dL (3.5-5.0); ALKALINE PHOSPHATASE 96.5 U/L (53-141); BILIRUBIN,TOTAL 0.44 mg/dL (0.2-1.3); BLOOD UREA NITROGEN 23.7 mg/dL (7-17); CALCIUM 9.31 mg/dL (8.4-10.2); CARBON DIOXIDE 30.4 mmol/L (22-30.0); CHLORIDE 100.9 mmol/L (98-107); CREATININE 0.66 mg/dL (0.60-1.30); GLUCOSE 199.3 mg/dL (74-106); POTASSIUM 3.4 mmol/L (3.5-5.1); SODIUM 137.8 mmol/L (134.5-145); TOTAL PROTEIN 6.66 g/dL (6.3-8.2)
[2024-04-17 06:01] LABS: ANISOCYTOSIS NOT PRESENT (NOT PRESENT)
[2024-04-17] MEDS: K-DUR PO ONE (10:08)
--- NOTE | 2024-04-17 10:47 | PCM.PROG ---
Date/Time Seen Date Seen by Provider: 04/17/24 Time Seen by Provider: 09:00 Provider [facility] Chief Complaint Chief Complaint: SEVERE SEPSIS, PNEUMONIA, FLU A Subjective Subjective: States she's not feeling any better today. Still has significant dyspnea on exertion. Reports cough is now productive and that has been better than the dry cough she did have. Continues to require 2L Objective Appearance: Positive No Apparent Distress and Alert and Oriented x3 Chest/Lungs: Positive Symmetrical With Equal Breath Sounds, Clear to Auscultation Bilaterally and Good Air Movement all 4 Lung [place] Heart: Positive RRR and Pulses Normal GI/: Positive Soft, Nontender, Bowel Sounds Normal and No Distention Musculoskeletal: Positive Normal Gait and Station Neurological: Positive Sensation Intact, Motor intact, Alert, Oriented and Other (generalized weakness) Vital Signs Vital Signs: Vital Signs: Last 24 Hours 04/16/24 13:00 04/16/24 14:00 04/16/24 14:00 Temperature 96.4 F L Temperature Source Temporal Artery Scan Pulse Rate 91 Respiratory Rate 20 Blood Pressure 141/90 H Blood Pressure Mean 107 Blood Pressure Location Right Arm Blood Pressure Position Supine O2 Sat by Pulse Oximetry 94 L Oxygen Delivery Method Nasal Cannula Nasal Cannula Oxygen Flow Rate Telemetry Type Remote Telemetry Telemetry Monitoring Continues Irregular Telemetry Rate (Approximate) Telemetry Heart Rate 95 EKG IN Interval 0.16 EKG QRS Interval 0.10 Telemetry Strip Reading SR 04/16/24 18:00 04/16/24 19:00 04/16/24 19:51 Temperature 96.4 F L Temperature Source Temporal Artery Scan Pulse Rate 92 Respiratory Rate 20 Blood Pressure 116/58 L Blood Pressure Mean 77 Blood Pressure Location Left Arm Blood Pressure Position Supine O2 Sat by Pulse Oximetry 92 L Oxygen Delivery Method Nasal Cannula Nasal Cannula Oxygen Flow Rate 1 Telemetry Type Remote Telemetry Telemetry Monitoring Continues Irregular Telemetry Rate (Approximate) Telemetry Heart Rate 91 EKG IN Interval 0.17 EKG QRS Interval 0.08 Telemetry Strip Reading SR 04/16/24 20:00 04/16/24 21:18 04/17/24 01:00 Temperature 97.5 F L Temperature Source Temporal Artery Scan Pulse Rate 82 Respiratory Rate 20 Blood Pressure 124/65 Blood Pressure Mean 84 Blood Pressure Location Left Radial Artery Blood Pressure Position Supine O2 Sat by Pulse Oximetry 94 L Oxygen Delivery Method Nasal Cannula Nasal Cannula Oxygen Flow Rate 2 1 Telemetry Type Remote Telemetry Telemetry Monitoring Continues Irregular Telemetry Rate (Approximate) Telemetry Heart Rate 82 EKG IN Interval 0.14 EKG QRS Interval 0.07 Telemetry Strip Reading Sinus RHythm 04/17/24 05:29 04/17/24 05:31 04/17/24 07:00 Temperature 97.5 F L Temperature Source Temporal Artery Scan Pulse Rate 98 Respiratory Rate 22 H Blood Pressure 105/60 Blood Pressure Mean 75 Blood Pressure Location Left Arm Blood Pressure Position Sitting O2 Sat by Pulse Oximetry 95 91 L Oxygen Delivery Method Nasal Cannula Nasal Cannula Oxygen Flow Rate 2 1 Telemetry Type Remote Telemetry Telemetry Monitoring Continues Irregular Telemetry Rate (Approximate) 80-90 BPM Telemetry Heart Rate 83 EKG IN Interval 0.13 EKG QRS Interval 0.06 Telemetry Strip Reading SR 04/17/24 08:00 Temperature Temperature Source Pulse Rate Respiratory Rate Blood Pressure Blood Pressure Mean Blood Pressure Location Blood Pressure Position O2 Sat by Pulse Oximetry Oxygen Delivery Method Nasal Cannula Oxygen Flow Rate 2 Telemetry Type Telemetry Monitoring Irregular Telemetry Rate (Approximate) Telemetry Heart Rate EKG IN Interval EKG QRS Interval Telemetry Strip Reading Lab Results Lab Results: Lab Results: Last 24 Hours 04/17/24 05:00 WBC 10.02 RBC 3.97 L Hgb 11.1 L Hct 35.1 L MCV 88.4 MCH 28.0 MCHC 31.6 L RDW Coeff of Saundra 13.8 Plt Count 436 Neutrophils % (Manual) 61.0 Band Neutrophils % 7.0 H Lymphocytes % (Manual) 17.0 Monocytes % (Manual) 6.0 Eosinophils % (Manual) 2.0 Myelocytes % 2.0 H Reactive Lymphocytes 5.0 Anisocytosis Not present Sodium 137.8 Potassium 3.40 L Chloride 100.9 Carbon Dioxide 30.4 H Anion Gap 9.90 BUN 23.7 H Creatinine 0.66 Estimated GFR (MDRD) 88.00 BUN/Creatinine Ratio 35.90 Glucose 199.3 H Calcium 9.31 Total Bilirubin 0.44 AST 47.0 H D ALT 47.9 H Alkaline Phosphatase 96.5 Total Protein 6.66 Albumin 3.07 L Globulin 3.59 Albumin/Globulin Ratio 0.85 Procalcitonin 0.60 H Additional Comments Additional Comments: I have independently reviewed and interpreted the labs/EKGs/imaging ordered during this hospital stay. I have reviewed outside records that are available in our EMR that pertain to medical stay including imaging/notes/labs from previous visits. Active Medications Active Medications: Medications Generic Name Dose Route Start Last Admin Trade Name Chastity PRN Reason Stop Dose Admin Acetaminophen 650 mg 04/13/24 11:22 04/15/24 03:18 Acetaminophen 325 Mg Tablet PO 650 mg Q4H PRN Administration Mild Pain Hydrocodone Bitart/Acetaminophen 1 tab 04/13/24 13:18 04/16/24 14:43 Hydrocodone Bit/Acetaminophen 7.5/325 Mg Tablet PO 1 tab TID PRN Administration Pain Albuterol/Ipratropium 3 ml 04/15/24 12:00 04/17/24 05:17 Ipratropium/Albuterol Vial.Neb NEB 3 ml RTQ6H REMIGIO Administration Alprazolam 0.25 mg 04/13/24 13:18 Alprazolam 0.25 Mg Tablet PO BID PRN Anxiety Aspirin 81 mg 04/13/24 13:30 04/17/24 09:51 Aspirin 81 Mg Tab.Chew PO 81 mg DAILYWM2 REMIGIO Administration Cefdinir 300 mg 04/16/24 21:00 04/17/24 09:48 Cefdinir 300 Mg Capsule PO 04/19/24 20:59 300 mg BID REMIGIO Administration Doxycycline Hyclate 100 mg 04/15/24 11:00 04/17/24 09:48 Doxycycline Hyclate 100 Mg Capsule PO 04/19/24 23:00 100 mg Q12HR REMIGIO Administration Enoxaparin Sodium 40 mg 04/14/24 09:00 04/17/24 09:52 Enoxaparin Sodium 40 Mg/0.4 Ml Syr SUBCUT 40 mg DAILY REMIGIO Administration Furosemide 20 mg 04/16/24 06:00 04/17/24 06:16 Furosemide 20 Mg Tablet PO 20 mg QDAC2 REMIGIO Administration Gabapentin 200 mg 04/13/24 21:00 04/17/24 09:50 Gabapentin 100 Mg Capsule PO 200 mg BID REMIGIO Administration Insulin Glargine 20 unit 04/15/24 09:00 04/17/24 09:52 Insulin Glargine,Hum.Rec.Anlog 100 Units/Ml SUBCUT 20 unit DAILY REMIGIO Administration Insulin Human Regular 0 unit 04/14/24 20:29 04/17/24 06:16 Insulin Regular, Human 100 Unit/Ml (10ml) Vial SUBCUT 4 unit PRN PRN Administration Hyperglycemia Protocol Lisinopril 20 mg 04/13/24 13:30 04/17/24 09:51 Lisinopril 10 Mg Tablet PO 20 mg DAILY REMIGIO Administration Loratadine 10 mg 04/14/24 09:00 04/17/24 09:52 Loratadine 10 Mg Tablet PO 10 mg DAILY REMIGIO Administration Losartan Potassium 100 mg 04/14/24 09:00 04/17/24 09:50 Losartan Potassium 100 Mg Tablet PO 100 mg DAILY REMIGIO Administration Metformin HCl 1,000 mg 04/15/24 11:05 04/17/24 09:49 Metformin Hcl 500 Mg Tablet PO 1,000 mg BIDWM2 REMIGIO Administration Methocarbamol 750 mg 04/13/24 18:00 04/17/24 06:16 Methocarbamol 500 Mg Tablet PO 750 mg Q6HR REMIGIO Administration Potassium Chloride 10 meq 04/14/24 07:30 04/17/24 09:50 Potassium Chloride 10 Meq Capsule.Er PO 10 meq DAILYWM2 REMIGIO Administration Simvastatin 40 mg 04/13/24 21:00 04/15/24 20:54 Simvastatin 40 Mg Tablet PO 40 mg EVERY OTHER DAY@2100 REMIGIO Administration Sodium Chloride 1 syr 04/14/24 21:00 04/17/24 06:18 0.9% Sodium Chloride 10 Ml Disp.Syrin IVF 1 syr Q8HR REMIGIO Administration Sodium Chloride 1 syr 04/14/24 13:58 04/14/24 17:15 0.9% Sodium Chloride 10 Ml Disp.Syrin IVF 1 syr PRN PRN Administration Maintain IV Patency Verapamil HCl 240 mg 04/13/24 13:20 04/17/24 09:49 Verapamil Hcl 120 Mg Tablet.Er PO 240 mg DAILY REMIGIO Administration Plan Plan: 1. Acute Hypoxic Respiratory Failure in setting of Influenza A, Possible right CAP, and Pleural Effusion - Unchanged, requiring 2L today, continue to wean oxygen as tolerated, nebs, may need 3 step oximetry for discharge 2. Sepsis in setting of possible right CAP - blood cultures negative x 48 hours 3. Possible R CAP - procal 0.6 today, MRSA neg, stop vanc, cont doxy for atypical coverage, transition to cefdinir, nebs, strep pneumo and legionella negative, sputum culture showed mixed ramona. 4. Influenza A - onset likely 1 week ago, out of window for Tamiflu, conservative measures, isolation 5. Dilated Cardiomyopathy - new pleural effusion on x-ray compared to 01/24, last echo 01/2019 with EF 54%, echo completed - EfF 66%, lasix 20 mg PO, daily weight, I&O 6. HTN - chronic, continue home medications 7. DM2 - chronic, improved, accuchecks qid with aggressive ssi, increased home lantus to 20 units, do not anticipate contrast imaging - resume home metformin to help with glucose stability, 1500 ADA diet 8. UTI - culture negative, ruled out DVT Prophylaxis: Lovenox Dispo: Patient is continuing to have significant shortness of breath on exertion. Will continue to attempt to wean oxygen. If unable to further, may require oxygen upon discharge. Review Statement Review Statement: I have personally discussed and reviewed the patient's visit/currently labs/imaging/decision making with Dr. Oconnell, my supervising attending. Greater that 50 minutes spent with patient, 50% of the time spent with this patient was devoted to counseling and coordination of care.
[2024-04-18 05:03] LABS: HEMATOCRIT 36.3 % (37.0-47.0); HEMOGLOBIN 11.5 g/dl (12.0-16.0); MEAN CORPUSCULAR HEMOGLOBIN 27.9 pg (27.0-31.0); MEAN CORPUSCULAR HGB CONC 31.7 (31.8-35.4); MEAN CORPUSCULAR VOLUME 88.1 fl (81.0-99.0); PLATELET COUNT 437 10^3/uL (140-440); RDW COEFFICIENT OF VARIATION 13.9 % (11.6-14.8); RED BLOOD COUNT 4.12 10^6/ul (4.20-5.40); WHITE BLOOD COUNT 8.24 K/ul (4.6-10.2)
[2024-04-18 05:15] LABS: ANISOCYTOSIS NOT PRESENT (NOT PRESENT)
[2024-04-18 05:18] LABS: ALANINE AMINOTRANSFERASE 43.4 U/L (0-35); ALBUMIN 3.08 g/dL (3.5-5.0); ALKALINE PHOSPHATASE 86.1 U/L (53-141); ASPARTATE AMINO TRANSFERASE 68.7 U/L (14-36); BILIRUBIN,TOTAL 0.5 mg/dL (0.2-1.3); CALCIUM 9.05 mg/dL (8.4-10.2); CARBON DIOXIDE 33.7 mmol/L (22-30.0); CHLORIDE 99.4 mmol/L (98-107); CREATININE 0.69 mg/dL (0.60-1.30); GLUCOSE 209.2 mg/dL (74-106); POTASSIUM 3.42 mmol/L (3.5-5.1); SODIUM 136.8 mmol/L (134.5-145); TOTAL PROTEIN 6.86 g/dL (6.3-8.2)
[2024-04-18] MEDS: K-DUR PO ONE (10:05)
--- NOTE | 2024-04-18 12:29 | PCM.PROG ---
Date/Time Seen Date Seen by Provider: 04/18/24 Time Seen by Provider: 10:00 Provider Provider: [facility]ARC[facility] Chief Complaint Chief Complaint: SEVERE SEPSIS, PNEUMONIA, FLU A Subjective Subjective: Feeling better today. Continues to require 2L. Reported dizziness upon standing to RN. BP checked and normal. Objective Appearance: Positive No Apparent Distress and Alert and Oriented x3 Chest/Lungs: Positive Symmetrical With Equal Breath Sounds, Clear to Auscultation Bilaterally and Good Air Movement all 4 Lung [place] Heart: Positive RRR and Pulses Normal GI/: Positive Soft, Nontender, Bowel Sounds Normal and No Distention Musculoskeletal: Positive Not Examined Neurological: Positive Sensation Intact, Motor intact, Alert and Oriented Vital Signs Vital Signs: Vital Signs: Last 24 Hours 04/17/24 13:00 04/17/24 14:00 04/17/24 14:00 Temperature 97.0 F L Temperature Source Temporal Artery Scan Pulse Rate 93 Respiratory Rate 16 Blood Pressure 115/70 Blood Pressure Mean 85 Blood Pressure Location Right Radial Artery Blood Pressure Position O2 Sat by Pulse Oximetry 95 93 L Oxygen Delivery Method Room Air Nasal Cannula Oxygen Flow Rate 2 Telemetry Type Remote Telemetry Telemetry Monitoring Continues Irregular Telemetry Rate (Approximate) Telemetry Heart Rate 98 EKG MA Interval 0.12 EKG QRS Interval 0.06 Telemetry Strip Reading SR 04/17/24 18:00 04/17/24 18:41 04/17/24 19:00 Temperature 97.6 F Temperature Source Temporal Artery Scan Pulse Rate 96 Respiratory Rate 18 Blood Pressure 125/70 Blood Pressure Mean 88 Blood Pressure Location Right Arm Blood Pressure Position O2 Sat by Pulse Oximetry 92 L Oxygen Delivery Method Nasal Cannula Nasal Cannula Oxygen Flow Rate 2 2 Telemetry Type Remote Telemetry Telemetry Monitoring Continues Irregular Telemetry Rate (Approximate) Telemetry Heart Rate 99 EKG MA Interval 0.14 EKG QRS Interval 0.08 Telemetry Strip Reading SINUS RHYTHM 04/17/24 20:00 04/17/24 20:17 04/18/24 01:00 Temperature 97.8 F Temperature Source Temporal Artery Scan Pulse Rate 92 Respiratory Rate 18 Blood Pressure 119/76 Blood Pressure Mean 90 Blood Pressure Location Right Arm Blood Pressure Position Supine O2 Sat by Pulse Oximetry 93 L Oxygen Delivery Method Nasal Cannula Nasal Cannula Oxygen Flow Rate 2 2 Telemetry Type Remote Telemetry Telemetry Monitoring Continues Irregular Telemetry Rate (Approximate) Telemetry Heart Rate 86 EKG MA Interval 0.15 EKG QRS Interval 0.06 Telemetry Strip Reading SINUS RHYTHM 04/18/24 05:12 04/18/24 05:37 04/18/24 07:00 Temperature 97.0 F L Temperature Source Temporal Artery Scan Pulse Rate 96 Respiratory Rate 20 Blood Pressure 124/63 Blood Pressure Mean 83 Blood Pressure Location Left Arm Blood Pressure Position Sitting O2 Sat by Pulse Oximetry 96 Oxygen Delivery Method Nasal Cannula Nasal Cannula Oxygen Flow Rate 2 2 Telemetry Type Remote Telemetry Telemetry Monitoring Continues Irregular Telemetry Rate (Approximate) 80-90 BPM Telemetry Heart Rate 89 EKG MA Interval 0.12 EKG QRS Interval 0.05 L Telemetry Strip Reading SR narrow QRS 04/18/24 08:00 04/18/24 09:11 04/18/24 10:00 Temperature 97.8 F Temperature Source Temporal Artery Scan Pulse Rate 94 Respiratory Rate 16 Blood Pressure 106/82 Blood Pressure Mean 90 Blood Pressure Location Right Arm Blood Pressure Position O2 Sat by Pulse Oximetry 94 L 94 L Oxygen Delivery Method Nasal Cannula Nasal Cannula Nasal Cannula Oxygen Flow Rate 2 2 2 Telemetry Type Telemetry Monitoring Irregular Telemetry Rate (Approximate) Telemetry Heart Rate EKG MA Interval EKG QRS Interval Telemetry Strip Reading Lab Results Lab Results: Lab Results: Last 24 Hours 04/18/24 04:48 WBC 8.24 RBC 4.12 L Hgb 11.5 L Hct 36.3 L MCV 88.1 MCH 27.9 MCHC 31.7 L RDW Coeff of Saundra 13.9 Plt Count 437 Neutrophils % (Manual) 52.0 Band Neutrophils % 9.0 H Lymphocytes % (Manual) 25.0 Monocytes % (Manual) 6.0 Eosinophils % (Manual) 2.0 Myelocytes % 2.0 H Reactive Lymphocytes 4.0 Anisocytosis Not present Sodium 136.8 Potassium 3.42 L Chloride 99.4 Carbon Dioxide 33.7 H Anion Gap 7.12 BUN 21.0 H Creatinine 0.69 Estimated GFR (MDRD) 84.00 BUN/Creatinine Ratio 30.43 Glucose 209.2 H Calcium 9.05 Total Bilirubin 0.50 AST 68.7 H ALT 43.4 H Alkaline Phosphatase 86.1 Total Protein 6.86 Albumin 3.08 L Globulin 3.78 Albumin/Globulin Ratio 0.81 Procalcitonin 0.34 H Additional Comments Additional Comments: I have independently reviewed and interpreted the labs/EKGs/imaging ordered during this hospital stay. I have reviewed outside records that are available in our EMR that pertain to medical stay including imaging/notes/labs from previous visits. Active Medications Active Medications: Medications Generic Name Dose Route Start Last Admin Trade Name Freq PRN Reason Stop Dose Admin Acetaminophen 650 mg 04/13/24 11:22 04/15/24 03:18 Acetaminophen 325 Mg Tablet PO 650 mg Q4H PRN Administration Mild Pain Hydrocodone Bitart/Acetaminophen 1 tab 04/13/24 13:18 04/16/24 14:43 Hydrocodone Bit/Acetaminophen 7.5/325 Mg Tablet PO 1 tab TID PRN Administration Pain Albuterol/Ipratropium 3 ml 04/15/24 12:00 04/18/24 11:18 Ipratropium/Albuterol Vial.Neb NEB 3 ml RTQ6H REMIGIO Administration Alprazolam 0.25 mg 04/13/24 13:18 Alprazolam 0.25 Mg Tablet PO BID PRN Anxiety Aspirin 81 mg 04/13/24 13:30 04/18/24 08:26 Aspirin 81 Mg Tab.Chew PO 81 mg DAILYWM2 REMIGIO Administration Cefdinir 300 mg 04/16/24 21:00 04/18/24 10:05 Cefdinir 300 Mg Capsule PO 04/19/24 20:59 300 mg BID REMIGIO Administration Doxycycline Hyclate 100 mg 04/15/24 11:00 04/18/24 10:05 Doxycycline Hyclate 100 Mg Capsule PO 04/19/24 23:00 100 mg Q12HR REMIGIO Administration Enoxaparin Sodium 40 mg 04/14/24 09:00 04/18/24 10:01 Enoxaparin Sodium 40 Mg/0.4 Ml Syr SUBCUT 40 mg DAILY REMIGIO Administration Furosemide 20 mg 04/16/24 06:00 04/18/24 05:55 Furosemide 20 Mg Tablet PO 20 mg QDAC2 REMIGIO Administration Gabapentin 200 mg 04/13/24 21:00 04/18/24 10:04 Gabapentin 100 Mg Capsule PO 200 mg BID REMIGIO Administration Insulin Glargine 20 unit 04/15/24 09:00 04/18/24 10:02 Insulin Glargine,Hum.Rec.Anlog 100 Units/Ml SUBCUT 20 unit DAILY REMIGIO Administration Insulin Human Regular 0 unit 04/14/24 20:29 04/18/24 11:43 Insulin Regular, Human 100 Unit/Ml (10ml) Vial SUBCUT 12 unit PRN PRN Administration Hyperglycemia Protocol Lisinopril 20 mg 04/13/24 13:30 04/18/24 10:05 Lisinopril 10 Mg Tablet PO 20 mg DAILY REMIGIO Administration Loratadine 10 mg 04/14/24 09:00 04/18/24 10:04 Loratadine 10 Mg Tablet PO 10 mg DAILY REMIGIO Administration Losartan Potassium 100 mg 04/14/24 09:00 04/18/24 10:04 Losartan Potassium 100 Mg Tablet PO 100 mg DAILY REMIGIO Administration Meclizine HCl 25 mg 04/18/24 12:00 Meclizine Hcl 25 Mg Tablet PO TID PRN Vertigo Metformin HCl 1,000 mg 04/15/24 11:05 04/18/24 08:25 Metformin Hcl 500 Mg Tablet PO 1,000 mg BIDWM2 REMIGIO Administration Methocarbamol 750 mg 04/13/24 18:00 04/18/24 11:45 Methocarbamol 500 Mg Tablet PO 750 mg Q6HR REMIGIO Administration Potassium Chloride 10 meq 04/14/24 07:30 04/18/24 08:26 Potassium Chloride 10 Meq Capsule.Er PO 10 meq DAILYWM2 REMIGIO Administration Simvastatin 40 mg 04/13/24 21:00 04/17/24 21:48 Simvastatin 40 Mg Tablet PO 40 mg EVERY OTHER DAY@2100 REMIGIO Administration Sodium Chloride 1 syr 04/14/24 21:00 04/18/24 06:11 0.9% Sodium Chloride 10 Ml Disp.Syrin IVF 1 syr Q8HR REMIGIO Administration Sodium Chloride 1 syr 04/14/24 13:58 04/14/24 17:15 0.9% Sodium Chloride 10 Ml Disp.Syrin IVF 1 syr PRN PRN Administration Maintain IV Patency Verapamil HCl 240 mg 04/13/24 13:20 04/18/24 10:04 Verapamil Hcl 120 Mg Tablet.Er PO 240 mg DAILY REMIGIO Administration Plan Plan: 1. Acute Hypoxic Respiratory Failure in setting of Influenza A, Possible right CAP, and Pleural Effusion - Unchanged, requiring 2L today, continue to wean oxygen as tolerated, nebs, may need 3 step oximetry for discharge 2. Sepsis in setting of possible right CAP - Ruled out, blood cultures negative 3. Possible R CAP - procal 0.34 today, MRSA neg, stop vanc, cont doxy for atypical coverage, transition to cefdinir, nebs, strep pneumo and legionella negative, sputum culture showed mixed ramona. 4. Influenza A - onset likely 1 week ago, out of window for Tamiflu, conservative measures, isolation 5. Dilated Cardiomyopathy - new pleural effusion on x-ray compared to 01/24, last echo 01/2019 with EF 54%, echo completed - EfF 66%, lasix 20 mg PO, daily weight, I&O 6. HTN - chronic, continue home medications 7. DM2 - chronic, improved, accuchecks qid with aggressive ssi, increased home lantus to 20 units, do not anticipate contrast imaging - resume home metformin to help with glucose stability, 1500 ADA diet 8. UTI - culture negative, ruled out DVT Prophylaxis: Lovenox Dispo: Patient is continuing to have significant shortness of breath on exertion. Will continue to attempt to wean oxygen. If unable to further, may require oxygen upon discharge. Review Statement Review Statement: I have personally discussed and reviewed the patient's visit/currently labs/imaging/decision making with Dr. Oconnell, my supervising attending. Greater that 50 minutes spent with patient, 50% of the time spent with this patient was devoted to counseling and coordination of care.
[2024-04-18] MEDS: ANTIVERT PO PRN (12:40)
[2024-04-19 04:53] LABS: HEMATOCRIT 37.1 % (37.0-47.0); HEMOGLOBIN 11.5 g/dl (12.0-16.0); MEAN CORPUSCULAR HEMOGLOBIN 27.8 pg (27.0-31.0); MEAN CORPUSCULAR VOLUME 89.8 fl (81.0-99.0); PLATELET COUNT 411 10^3/uL (140-440); RDW COEFFICIENT OF VARIATION 13.9 % (11.6-14.8); RED BLOOD COUNT 4.13 10^6/ul (4.20-5.40); WHITE BLOOD COUNT 7.77 K/ul (4.6-10.2)
[2024-04-19 05:10] LABS: ALANINE AMINOTRANSFERASE 39.9 U/L (0-35); ALBUMIN 3.04 g/dL (3.5-5.0); ASPARTATE AMINO TRANSFERASE 54.4 U/L (14-36); BILIRUBIN,TOTAL 0.44 mg/dL (0.2-1.3); BLOOD UREA NITROGEN 20.2 mg/dL (7-17); CALCIUM 9.01 mg/dL (8.4-10.2); CARBON DIOXIDE 31.7 mmol/L (22-30.0); CHLORIDE 101.4 mmol/L (98-107); CREATININE 0.63 mg/dL (0.60-1.30); GLUCOSE 161.6 mg/dL (74-106); POTASSIUM 3.55 mmol/L (3.5-5.1); SODIUM 138.7 mmol/L (134.5-145); TOTAL PROTEIN 6.71 g/dL (6.3-8.2)
--- NOTE | 2024-04-19 12:25 | DCSUM ---
Admission Date Admission Date: 04/13/24 Discharge Date Discharge Date: 04/19/24 Admission Diagnosis Admission Diagnosis: 1. Acute Hypoxic Respiratory Failure in setting of Influenza A, Possible right CAP, and Pleural Effusion 2. Sepsis in setting of possible right CAP 3. Possible R CAP 4. Influenza A Discharge Diagnosis Discharge Diagnosis: 1. Acute Hypoxic Respiratory Failure in setting of Influenza A, Possible right CAP, and Pleural Effusion - resolved 2. Sepsis in setting of possible right CAP - Ruled out 3. CAP in setting of recent influenza 4. Influenza A 5. Dilated Cardiomyopathy 6. HTN 7. DM2 8. UTI - ruled out Hospital Provider Hospital Provider: GENE YBARRA PA-C, [facility] Physician Primary Care Physician: MICHAEL OBRIEN MD Summary of History and Physical Summary of History and Physical: 73 yo female with pmh of HTN, anemia, HLD, DM2, and dilated cardiomyopathy presented to the ER with shortness of breath. Patient states she has been sick since Friday of last week. Reports fever "but not really high", dry cough, and shortness of breath. Denies nausea, vomiting, or diarrhea. Denies any sick contacts that she knows of. Has been laying around a lot. Does not wear oxygen at home. Has not taken any of her medicines since . Found to have influenza A, possible R lower lobe pneumonia, and new small pleural effusion. Met sepsis criteria due to HR in 120s, RR 22, WBC 13. IV fluids not given due to cardiomyopathy. O2 sat was running 89% on RA. Requiring 2L at this time to maintain sat above 92%. Admitted to med/surg observation. Hospital Course Subjective: Patient out of window for tamiflu but was covered for CAP with antibiotics and steroids. Patient continued to require oxygen for several days. She was also given some lasix and started on PO lasix with improvement. Echo performed, re sults below. She was weaned to RA. Was ambulatory. Discussed swingbed but patient would like to go home, she has great grandkids she helps care for. Blood cultures negative. Urine culture negative. Sputum culture showing mixed ramona. Pt discharged on remaining antibiotics and lasix 20 mg daily. Follow up with pcp. Pt agrees to plan of care. Did not qualify for home O2. Appearance: Pleasant, No Apparent Distress, Alert and Other (+very hard of hearing) HEENT: MMM CVS: Other (RRR) Abdomen: Soft, Non-Tender and No Distention Respiratory: Other (+mild wheezing, speaks full sentences without difficulty, appears comfortable ) Extremities: No Edema Vital Signs: Most Recent Vital Signs Temperature 96.7 F L 04/19/24 09:54 Temperature Source Temporal Artery Scan 04/19/24 09:54 Temperature Source Temporal Artery Scan 04/13/24 09:08 Pulse Rate 95 04/19/24 09:54 Respiratory Rate 19 04/19/24 09:54 Blood Pressure 125/59 L 04/19/24 09:54 Blood Pressure Mean 81 04/19/24 09:54 Blood Pressure Left Arm 147/79 04/13/24 10:49 Blood Pressure Location Right Arm 04/19/24 09:54 Blood Pressure Position Supine 04/19/24 05:19 O2 Sat by Pulse Oximetry 92 L 04/19/24 10:00 Oxygen Delivery Method Room Air 04/19/24 10:00 Oxygen Flow Rate 2 04/19/24 05:19 Height 5 ft 5 in 04/15/24 10:04 Weight 105.3 kg 04/15/24 10:04 Telemetry Type Remote Telemetry 04/19/24 07:00 Telemetry Monitoring Continues 04/19/24 01:00 Irregular Telemetry Rate (Approximate) 100-110 BPM 04/18/24 13:00 Telemetry Heart Rate 88 04/19/24 07:00 EKG GA Interval 0.15 04/19/24 07:00 EKG QRS Interval 0.06 04/19/24 07:00 Telemetry Strip Reading SR 04/19/24 07:00 Imaging: EXAM: CHEST RADIOGRAPH TECHNIQUE: Single frontal chest radiograph. HISTORY: Chest pain and shortness of breath. COMPARISON: 01/28/2024 FINDINGS: The patient is mildly leaning to the left. EKG leads and oxygen tubing project over the chest. Interval development of consolidation of the right lower lobe, with possible small right pleural effusion. No visible pneumothorax. Stable cardiomegaly and mild tortuosity of the thoracic aorta. No acute displaced rib fractures are identified. Degenerative changes of the glenohumeral joints, left greater than right, again noted. IMPRESSION: 1. Probable pneumonia of the right lower lobe with equivocal small right pleural effusion. Follow-up radiographs are recommended to show resolution Reason for Echo: NEW PLEURAL EFFUSION, SHORTNESS OF BREATH M-Mode Normal Adult Results LV Dimensions Normal Adult Results AoV Opening excursions >1.6 >1.6 LVEDD-base- 3.5-5.8 5.0 Ao root dimensions 2.0-3.7 3.2 LVESD-base- 3.1-4.6 L. Atrium dimensions 1.9-3.8 4.5 Post. Wall thickness 0.8-1.1 1.3 IV septum (thickness) 0.7-1.2 1.4 Post. Wall excursion 0.72-1.3 NORMAL Septal motion NORMAL Systolic motion R. Ventricular cavity 1.5-2.0 NORMAL LVEF 60% 66% Paradoxical septal wall motion NORMAL 2-D : 2-D M Mode Echocardiogram was performed using apical four chamber and left parasternal long and short axis views. Mitral, tricuspid and aortic valves appear to be normal. Contractility of the left ventricle seems to be normal, so is the cavity size. ENLARGED LEFT ATRIAL CAVITY. Aortic root appears to be normal. There is no pericardial effusion. There is no thrombus noted in the left ventricle or left atrial cavity. M-MODE: MV: NORMAL AV: NORMAL TV: NORMAL PV: NORMAL CHAMBER SIZE: ENLARGED LEFT ATRIAL CAVITY WALL MOTION: NORMAL PERICARDIUM: NORMAL INTERPRETATION: 1. LEFT VENTRICULAR HYPERTROPHY WITH ENLARGED LEFT ATRIAL CAVITY. 2. NORMAL LEFT VENTRICLE SIZE AND LEFT VENTRICULAR CONTRACTILITY. 3. ALL VALVES NORMAL. Lab Results Last 24 Hours: 04/19/24 04:42 WBC 7.77 RBC 4.13 L Hgb 11.5 L Hct 37.1 MCV 89.8 MCH 27.8 MCHC 31.0 L RDW Coeff of Saundra 13.9 Plt Count 411 Neutrophils % (Manual) 41.0 L Band Neutrophils % 8.0 H Lymphocytes % (Manual) 22.0 Monocytes % (Manual) 10.0 Eosinophils % (Manual) 4.0 Basophils % (Manual) 1.0 Metamyelocytes % 4.0 H Myelocytes % 2.0 H Reactive Lymphocytes 8.0 H Anisocytosis Not Reportable Sodium 138.7 Potassium 3.55 Chloride 101.4 Carbon Dioxide 31.7 H Anion Gap 9.15 BUN 20.2 H Creatinine 0.63 Estimated GFR (MDRD) 93.00 BUN/Creatinine Ratio 32.06 Glucose 161.6 H Calcium 9.01 Total Bilirubin 0.44 AST 54.4 H ALT 39.9 H Alkaline Phosphatase 78.0 Total Protein 6.71 Albumin 3.04 L Globulin 3.67 Albumin/Globulin Ratio 0.82 Procalcitonin 0.19 H Discharge Instructions Discharge Planning: Discharge Planning > [address] Deejay Obrien. Discharge Medications: Medications at Discharge (Home Meds & RX) aspirin 81 mg chewable tablet 81 mg PO DAILY 04/01/14 loratadine 10 mg tablet 10 mg PO DAILY 10/29/16 cholecalciferol (vitamin D3) 50 mcg (2,000 unit) capsule 100 mcg PO QDAY 04/04/22 GLUCOMETER FREE STYLE E11.9 ##1 05/06/22 blood sugar diagnostic (FreeStyle Lite Strips) #100 ea 05/06/22 alcohol swabs (BD Alcohol Swabs) 1 pad topical QPM #200 ea 06/03/22 safety needles 25 gauge x 1 1/2" (BD Eclipse Luer-Beckie) #100 ea 06/03/22 insulin glargine 100 unit/mL (3 mL) subcutaneous pen (Lantus Solostar U-100 Insulin) 15 unit (0.15 mL) subcut QDAY #15 mL 08/26/22 geriatric multivitamin-min 1 tab PO DAILY 07/29/23 alprazolam 0.25 mg tablet (Xanax) 0.25 mg PO BID PRN anxiety #30 tabs 10/27/23 potassium chloride 10 mEq tablet,extended release 10 meq PO DAILY #90 tabs 11/04/23 semaglutide 7 mg tablet (Rybelsus) 7 mg PO QDAY #30 tabs 11/04/23 verapamil 240 mg tablet,extended release 240 mg PO DAILY #90 tabs 11/04/23 celecoxib 100 mg capsule (Celebrex) 100 mg PO BID 12/02/23 simvastatin 40 mg tablet 40 mg PO .Q Every Other Day PM 12/02/23 spironolactone 25 mg tablet 25 mg PO QDAY 12/02/23 lidocaine 4 % topical patch 1 patch topical DAILY PRN pain #30 ea 01/28/24 methocarbamol 750 mg tablet 750 mg PO Q6H #28 tabs 01/28/24 gabapentin 100 mg capsule 200 mg (2 x 100 mg) PO BID #360 caps 02/03/24 metformin 1,000 mg tablet 1,000 mg PO 2XD #180 tabs 02/03/24 lisinopril 20 mg tablet 20 mg PO DAILY #90 tabs 03/01/24 losartan 100 mg tablet 100 mg PO DAILY #90 tabs 03/18/24 hydrocodone 7.5 mg-acetaminophen 325 mg tablet 1 tab PO TID PRN pain #90 tabs 04/14/24 albuterol sulfate 90 mcg/actuation aerosol inhaler 2 puff inhalation Q6H PRN shortness of breath or wheezing #6.7 grams 04/19/24 cefdinir 300 mg capsule 300 mg PO BID #1 cap 04/19/24 doxycycline hyclate 100 mg capsule 100 mg PO Q12HR #1 cap 04/19/24 furosemide 20 mg tablet 20 mg PO QDAC2 #30 tabs 04/19/24 Discharge Plan Discharge Discharge Orders: Discharge Patient (ONCE); Ordered 04/19/24 Ordered By: GENE YBARRA Activity Restrictions/Additional Instructions: DISCHARGE TO HOME DX: INFLUENZA, PNEUMONIA PHARMACY: [facility] YOU'VE BEEN PRESCRIBED A WATER PILL (LASIX) TO TAKE DAILY, FOLLOW UP WITH PCP TO MONITOR LABS YOU HAVE ONE DOSE OF ANTIBIOTICS LEFT FOR TONIGHT, THEN YOU'LL BE DONE FOLLOW UP WITH PRIMARY CARE PHYSICIAN SCHEDULED RETURN WITH WORSENING SYMPTOMS Instructions: Influenza (GEN), Influenza (IP), Pneumonia (IP), Diabetes and Nutrition (GEN) Care Plan Goals: Problem: Impaired Respiratory Status Goal: Exhibit optimal respiratory function Instructions: Activities as tolerated Apply oxygen as ordered Elevate head of bed Notify MD of increased congestion Problem: Activity Intolerance Goal: Demonstrate increased activity intolerance Instructions: Determine cause of activity intolerance Change positions slowly Gradually increase activity Report intolerances to provider Patient Disposition: HOME SELF-CARE Prescriptions: New doxycycline hyclate 100 mg Capsule 100 mg PO Q12HR Qty: 1 0RF Rx Instructions: One dose left tonight furosemide 20 mg Tablet 20 mg PO QDAC2 Qty: 30 0RF cefdinir 300 mg Capsule 300 mg PO BID Qty: 1 0RF Rx Instructions: One dose left tonight albuterol sulfate 90 mcg/actuation HFA aerosol inhaler 2 puff inhalation Q6H PRN (Reason: shortness of breath or wheezing) Qty: 6.7 0RF Continued insulin glargine [Lantus Solostar U-100 Insulin] 100 unit/mL (3 mL) insulin pen 15 unit subcut QDAY Qty: 15 5RF verapamil 240 mg tablet extended release 240 mg PO DAILY Qty: 90 0RF potassium chloride 10 mEq tablet extended release 10 meq PO DAILY Qty: 90 0RF Rybelsus 7 mg tablet 7 mg PO QDAY Qty: 30 2RF metformin 1,000 mg tablet 1,000 mg PO 2XD Qty: 180 1RF gabapentin 100 mg capsule 200 mg PO BID Qty: 360 1RF lisinopril 20 mg tablet 20 mg PO DAILY Qty: 90 1RF losartan 100 mg tablet 100 mg PO DAILY Qty: 90 1RF hydrocodone-acetaminophen 7.5-325 mg tablet 1 tab PO TID PRN (Reason: pain) Qty: 90 0RF aspirin 81 MG tablet,chewable 81 mg PO DAILY loratadine 10 MG tablet 10 mg PO DAILY methocarbamol 750 mg tablet 750 mg PO Q6H Qty: 28 0RF lidocaine 4 % adhesive patch,medicated 1 patch topical DAILY PRN (Reason: pain) Qty: 30 1RF alcohol swabs [BD Alcohol Swabs] Pads, Medicated 1 pad topical QPM Qty: 200 0RF cholecalciferol (vitamin D3) 50 mcg (2,000 unit) capsule 100 mcg PO QDAY geriatric multivitamin-min Tablet 1 tab PO DAILY alprazolam [Xanax] 0.25 mg tablet 0.25 mg PO BID PRN (Reason: anxiety) Qty: 30 1RF simvastatin 40 mg tablet 40 mg PO .Q Every Other Day PM spironolactone 25 mg tablet 25 mg PO QDAY celecoxib [Celebrex] 100 mg capsule 100 mg PO BID No Action (DME) GLUCOMETER FREE STYLE E11.9 See Rx Instructions .ROUTE .MEDSUPPLY Qty: 1 0RF Rx Instructions: TEST 3 TIMES DAILY (DME) FreeStyle Lite Strips Strip See Rx Instructions .ROUTE Qty: 100 5RF Rx Instructions: As directed E11.9 (DME) BD Eclipse Luer-Beckie 25 gauge x 1 1/2" needle See Rx Instructions .ROUTE Qty: 100 0RF Rx Instructions: As directed Did you review [place] [employer] for ALL controlled substances?: Not Applicable Discussed opioids are addictive and Narcan is available by prescription or from pharmacy.: No Condition: Stable Referrals: MICHAEL OBRIEN MD [Primary Care Provider] - 04/22/24 9:40 am
[2024-04-19 14:28] VITALS: BP 118/67; PULSE 96; RESP 21; TEMP 96.1
== END 2024-04-19 15:15 | disposition home or self-care (01) | DRG 193 ==
LOC: ED 08:57 → MEDSURG B 10:18 → INTOOBSV 10:18 → MEDSURG B 10:40
PROVIDERS: ADMIT Hospitalist; ATTEND Physician Assistant